=== PATIENT | male | born 1945 | race Caucasian/White ===

== ENCOUNTER → 2016-06-05 | Outpatient (CLI) | payer MEDICARE ==
[2016-06-05 17:32] LABS: Blood Urea Nitrogen 10 mg/dL (9-20); Non-African American GFR(MDRD) >60 (>60 ml/min/1.73 sqM)
--- NOTE | 2016-06-05 18:57 | CT ---
EXAMINATION TYPE: CT ChestAbdPelvis w con DATE OF EXAM: 06/05/2016 6:37 PM COMPARISON: NONE HISTORY: Diarrhea x 6 weeks with [address] DLP: 722.60 mGycm. Automated Exposure Control for Dose Reduction was Utilized. CONTRAST: CT scan of the thorax, abdomen and pelvis is performed with IV Contrast, patient injected with 100 mL of Omnipaque 300. FINDINGS: LUNGS: The lungs are grossly clear, there is no concerning parenchymal mass is identified. A 3 mm pul monary nodule is seen of the right upper lobe medially and marked on the study. Right lower lobe 5 mm pulmonary nodule at the right lung base may relate to atelectasis. Minimal bibasilar subsegmental atelectasis is noted. There is no pleural effusion or pneumothorax seen. The tracheobronchial tree i s patent. MEDIASTINUM: There are no greater than 1 cm hilar or mediastinal lymph nodes. No pericardial effusi on is seen. Three-vessel coronary artery disease is seen. Heart is not enlarged. No pericardial effu milton. OTHER: No additional significant abnormality is seen. LIVER/GB: Hepatic parenchyma is grossly unremarkable with no evidence of intrahepatic biliary ductal dilatation. Gallbladder is elongated measuring up to 9.4 cm. No evidence of common bile ductal dilata tion.. PANCREAS: Pancreas is mildly atrophic but otherwise unremarkable. No pancreatic ductal dilatation.. SPLEEN: Spleen is absent and small residual calcified structure seen within the splenic bed.. ADRENALS: No significant abnormality is seen. KIDNEYS: No significant abnormality is seen. BOWEL: There is marked gastrectasis and dilation of the entirety of the proximal small bowel up to 4. 0 cm. A focal nondistended segment of small bowel seen within the low mid abdomen, however bowel seen distal to this is again dilated residing within the low pelvis. Small bowel appear lowers otherwise dilated up to the terminal ileum. Ascending colon is stool and air filled as is the transverse colon with decompression of the distal colon and sigmoid colon. There is no engorgement of the vasa recta o r free fluid appreciated. GENITAL ORGANS: No gross abnormality seen. LYMPH NODES: No greater than 1cm abdominal or pelvic lymph nodes are appreciated. OSSEOUS STRUCTURES: T12 degenerate change of superior endplate. OTHER: Atheromatous changes are appreciated of the abdominal aorta and its branches. Abdominal aorta and its branches are of normal course and caliber. Mild anasarca is seen of the soft tissues. IMPRESSION: 1. Gastrectasis and diffuse dilation of the small bowel without a focal transition point to suggest c omplete obstruction. Additionally fluid is seen within the bowel extending to the terminal ileum. Inc omplete or early small bowel obstruction is suspected due to the diffuse dilation of the small bowel and proximal stomach. Clinical correlation as well as short-term follow-up abdominal radiographs are recommended to evaluate for transit of oral contrast through the entirety of the small bowel into the colon. 2. Elongated gallbladder without right upper quadrant fat stranding changes or common bile duct dilat ion. 3. Right middle lobe pulmonary nodule and right lower lobe pulmonary nodule. Follow-up chest CT is re commended in 6-12 months.
== END | disposition home or self-care (01) ==
LOC: RADCTMAIN 16:50
PROVIDERS: ATTEND Physician Assistant
DX: K31.0 Acute dilatation of stomach (principal); K82.8 Other specified diseases of gallbladder; K63.89 Other specified diseases of intestine; R91.8 Other nonspecific abnormal finding of lung field
CPT/HCPCS: 82565; 84520; 71260; 74177; 36415; Q9967

== ENCOUNTER 2016-06-08 11:37 | Inpatient (IN) | payer MEDICARE ==
--- NOTE | 2016-06-08 12:45 | ED ---
Nausea/Vomiting/Diarrhea HPI - General Chief complaint: Nausea/Vomiting/Diarrhea Stated complaint: Bowel Obs. sent by PCP Time Seen by Provider: 06/08/16 12:15 Source: patient, RN notes reviewed, old records reviewed Mode of arrival: ambulatory Limitations: no limitations - History of Present Illness Initial comments: This is a 71-year-old male who states he was sent over from the clinic for evaluation for a possible bowel obstruction. He states he's had 6 weeks of diarrhea 30 pound weight loss slight nausea and 2 episodes of vomiting at night he's had decreased oral intake. He has no prior history of any pulmonary or GI problems no prior surgeries. He feels weak he does feel lightheaded when he gets up from a sitting or lying position too fast he denies any fevers chills or sweats no overt pain any body parts. No trouble with urination. He states he does not smoke and does not drink alcohol. He also knows of no exposure to anyone with any gastrointestinal symptoms he is not been out of the country recently and has not been on any antibiotics recently. MD complaint: nausea, vomiting, diarrhea, other - Related Data Home Medications Medication Instructions Recorded Confirmed Calcium Carbonate [Calcium] 600 mg PO BID 06/08/16 06/08/16 Cholecalciferol [Vitamin D3] 5,000 unit PO DAILY 06/08/16 06/08/16 Magnesium Gluconate [Magonate] 500 mg PO DAILY 06/08/16 06/08/16 Multivit-Min/FA/Lycopene/Lut 1 tab PO DAILY 06/08/16 06/08/16 [Centrum Silver Tablet] Allergies Allergy/AdvReac Type Severity Reaction Status Date / Time No Known Allergies Allergy Verified 06/08/16 11:56 Review of Systems ROS Statement: Those systems with pertinent positive or pertinent negative responses have been documented in the HPI. ROS Other: All systems not noted in ROS Statement are negative. Gastrointestinal: Reports: as per HPI Past Medical History Past Medical History: No Reported History History of Any Multi-Drug Resistant Organisms: None Reported Past Surgical History: No Surgical Hx Reported Past Psychological History: No Psychological Hx Reported Smoking Status: Former smoker Past Alcohol Use History: None Reported Past Drug Use History: None Reported General Exam - General Exam Comments Initial Comments: This is a well-developed well-nourished awake alert oriented 3 male Limitations: no limitations General appearance: alert, in no apparent distress Head exam: Present: atraumatic, normocephalic, normal inspection Eye exam: Present: normal appearance, PERRL, EOMI. Absent: scleral icterus, conjunctival injection, periorbital swelling ENT exam: Present: mucous membranes dry Neck exam: Present: normal inspection. Absent: tenderness, meningismus, lymphadenopathy Respiratory exam: Present: normal lung sounds bilaterally. Absent: respiratory distress, wheezes, rales, rhonchi, stridor Cardiovascular Exam: Present: normal rhythm, tachycardia GI/Abdominal exam: Present: soft, normal bowel sounds. Absent: distended, tenderness, guarding, rebound, rigid Extremities exam: Present: normal inspection, full ROM, normal capillary refill. Absent: tenderness, pedal edema, joint swelling, calf tenderness Back exam: Present: normal inspection Neurological exam: Present: alert, oriented X3, CN II-XII intact Psychiatric exam: Present: normal affect, normal mood Skin exam: Present: warm, dry, intact, normal color. Absent: rash Course Vital Signs 06/08/16 06/08/16 11:51 14:14 Temperature 98.1 F Pulse Rate 114 H 97 Respiratory 18 17 Rate Blood Pressure 108/75 116/74 O2 Sat by Pulse 98 99 Oximetry - Reevaluation(s) Reevaluation #1: 06/08/16 12:44 Patient did have a CAT scan the abdomen done on the third of this month which did show evidence of gastrectomy EMS with diffuse dilatation of the small bowel without focal transition point suggest of the leg earlier incomplete small bowel obstruction. Also elongated gallbladder without right upper quadrant fat stranding changes or, bile duct dilatation additionally was a right middle lobe pulmonary nodule noted Medical Decision Making - Medical Decision Making I did discuss findings with the patient patient does demonstrate hypomagnesemia hypocalcemia I did discuss the case with Dr. Briggs the patient will be admitted to her service with medicine and consultation. He d-dimer was 3.4 did do a CAT scan of the chest no evidence of any pulmonary embolism. - Lab Data Result diagrams: 06/08/16 12:20 06/08/16 12:20 Lab Results 06/08/16 06/08/16 06/08/16 Range/Units 12:20 12:20 12:20 WBC 10.7 H (3.8-10.6) k/uL RBC 5.07 (4.30-5.90) m/uL Hgb 17.0 (13.0-17.5) gm/dL Hct 48.7 (39.0-53.0) % MCV 96.1 (80.0-100.0) fL MCH 33.6 (25.0-35.0) pg MCHC 35.0 (31.0-37.0) g/dL RDW 13.9 (11.5-15.5) % Plt Count 339 (150-450) k/uL Neutrophils % 80 % Lymphocytes % 12 % Monocytes % 6 % Eosinophils % 1 % Basophils % 1 % Neutrophils # 8.5 H (1.3-7.7) k/uL Lymphocytes # 1.3 (1.0-4.8) k/uL Monocytes # 0.7 (0-1.0) k/uL Eosinophils # 0.1 (0-0.7) k/uL Basophils # 0.1 (0-0.2) k/uL D-Dimer (<0.60) mg/L FEU Sodium 136 L (137-145) mmol/L Potassium 4.5 (3.5-5.1) mmol/L Chloride 101 (98-107) mmol/L Carbon Dioxide 23 (22-30) mmol/L Anion Gap 12 mmol/L BUN 16 (9-20) mg/dL Creatinine 1.03 (0.66-1.25) mg/dL Est GFR (MDRD) Af Amer >60 (>60 ml/min/1.73 sqM) Est GFR (MDRD) Non-Af >60 (>60 ml/min/1.73 sqM) Glucose 92 (74-99) mg/dL Calcium 5.1 L* (8.4-10.2) mg/dL Magnesium 0.6 L* (1.6-2.3) mg/dL Total Bilirubin 1.0 (0.2-1.3) mg/dL AST 121 H (17-59) U/L ALT 53 (21-72) U/L Alkaline Phosphatase 73 (38-126) U/L Total Creatine Kinase 1139 H (55-170) U/L CK-MB (CK-2) 5.2 H* (0.0-2.4) ng/mL CK-MB (CK-2) Rel Index 0.5 Total Protein 5.9 L (6.3-8.2) g/dL Albumin 2.5 L (3.5-5.0) g/dL Amylase 58 (30-110) U/L Lipase 38 (23-300) U/L TSH 6.200 H (0.465-4.680) mIU/L Free T4 1.89 (0.78-2.19) ng/dL Urine Color Urine Appearance (Clear) Urine pH (5.0-8.0) Ur Specific [place] (1.001-1.035) Urine Protein (Negative) Urine Glucose (UA) (Negative) Urine Ketones (Negative) Urine Blood (Negative) Urine Nitrate (Negative) Urine Bilirubin (Negative) Urine Urobilinogen (<2.0) mg/dL Ur Leukocyte Esterase (Negative) Urine RBC (0-5) /hpf Urine WBC (0-5) /hpf Ur Squamous Epith Cells (0-4) /hpf Hyaline Casts (0-2) /lpf Urine Mucus (None) /hpf Stool Occult Blood (Negative) Urine Opiates Screen (NotDetected) Ur Oxycodone Screen (NotDetected) Urine Methadone Screen (NotDetected) Ur Propoxyphene Screen (NotDetected) Ur Barbiturates Screen (NotDetected) U Tricyclic Antidepress (NotDetected) Ur Phencyclidine Scrn (NotDetected) Ur Amphetamines Screen (NotDetected) U Methamphetamines Scrn (NotDetected) U Benzodiazepines Scrn (NotDetected) Urine Cocaine Screen (NotDetected) U Marijuana (THC) Screen (NotDetected) Serum Alcohol <10 mg/dL 06/08/16 06/08/16 06/08/16 Range/Units 12:20 12:45 13:00 WBC (3.8-10.6) k/uL RBC (4.30-5.90) m/uL Hgb (13.0-17.5) gm/dL Hct (39.0-53.0) % MCV (80.0-100.0) fL MCH (25.0-35.0) pg MCHC (31.0-37.0) g/dL RDW (11.5-15.5) % Plt Count (150-450) k/uL Neutrophils % % Lymphocytes % % Monocytes % % Eosinophils % % Basophils % % Neutrophils # (1.3-7.7) k/uL Lymphocytes # (1.0-4.8) k/uL Monocytes # (0-1.0) k/uL Eosinophils # (0-0.7) k/uL Basophils # (0-0.2) k/uL D-Dimer 3.40 H (<0.60) mg/L FEU Sodium (137-145) mmol/L Potassium (3.5-5.1) mmol/L Chloride (98-107) mmol/L Carbon Dioxide (22-30) mmol/L Anion Gap mmol/L BUN (9-20) mg/dL Creatinine (0.66-1.25) mg/dL Est GFR (MDRD) Af Amer (>60 ml/min/1.73 sqM) Est GFR (MDRD) Non-Af (>60 ml/min/1.73 sqM) Glucose (74-99) mg/dL Calcium (8.4-10.2) mg/dL Magnesium (1.6-2.3) mg/dL Total Bilirubin (0.2-1.3) mg/dL AST (17-59) U/L ALT (21-72) U/L Alkaline Phosphatase (38-126) U/L Total Creatine Kinase (55-170) U/L CK-MB (CK-2) (0.0-2.4) ng/mL CK-MB (CK-2) Rel Index Total Protein (6.3-8.2) g/dL Albumin (3.5-5.0) g/dL Amylase (30-110) U/L Lipase (23-300) U/L TSH (0.465-4.680) mIU/L Free T4 (0.78-2.19) ng/dL Urine Color Dark Yellow Urine Appearance Clear (Clear) Urine pH 6.0 (5.0-8.0) Ur Specific [place] 1.026 (1.001-1.035) Urine Protein 1+ H (Negative) Urine Glucose (UA) Negative (Negative) Urine Ketones 2+ H (Negative) Urine Blood Negative (Negative) Urine Nitrate Negative (Negative) Urine Bilirubin Negative (Negative) Urine Urobilinogen <2.0 (<2.0) mg/dL Ur Leukocyte Esterase Negative (Negative) Urine RBC 1 (0-5) /hpf Urine WBC 6 H (0-5) /hpf Ur Squamous Epith Cells 1 (0-4) /hpf Hyaline Casts 5 H (0-2) /lpf Urine Mucus Occasional H (None) /hpf Stool Occult Blood Positive (Negative) Urine Opiates Screen Not Detected (NotDetected) Ur Oxycodone Screen Not Detected (NotDetected) Urine Methadone Screen Not Detected (NotDetected) Ur Propoxyphene Screen Not Detected (NotDetected) Ur Barbiturates Screen Not Detected (NotDetected) U Tricyclic Antidepress Not Detected (NotDetected) Ur Phencyclidine Scrn Not Detected (NotDetected) Ur Amphetamines Screen Not Detected (NotDetected) U Methamphetamines Scrn Not Detected (NotDetected) U Benzodiazepines Scrn Not Detected (NotDetected) Urine Cocaine Screen Not Detected (NotDetected) U Marijuana (THC) Screen Not Detected (NotDetected) Serum Alcohol mg/dL - EKG Data -: EKG Interpreted by Ne EKG shows normal: sinus rhythm (EKG shows sinus rhythm of 90 [place] interval 146 QRS duration 60 QT/QTC 390/477 low-voltage QRSs seen nonspecific inferior changes.) - Radiology Data Radiology results: report reviewed (I did review the imaging and the CAT scan reports also. Partial small bowel obstruction is indicated.), image reviewed ( CAT scan did show some evidence of an inflammatory reaction the right base) Disposition Clinical Impression: Partial small bowel obstruction, Hypomagnesemia, Hypocalcemia, Dehydration Disposition: ADMITTED IP TO THIS [facility] Condition: Stable
[2016-06-08 13:04] LABS: ALT 53 U/L (21-72); AST 121 U/L (17-59); Alcohol <10 mg/dL; Alkaline Phosphatase 73 U/L (38-126); Amylase 58 U/L (30-110); Anion Gap 12 mmol/L; Blood Urea Nitrogen 16 mg/dL (9-20); Carbon Dioxide 23 mmol/L (22-30); Chloride 101 mmol/L (98-107); Glucose 92 mg/dL (74-99); Non-African American GFR(MDRD) >60 (>60 ml/min/1.73 sqM); Potassium 4.5 mmol/L (3.5-5.1); Sodium 136 mmol/L (137-145); Total Protein 5.9 g/dL (6.3-8.2)
[2016-06-08 13:06] LABS: Basophils # (A) 0.1 k/uL (0-0.2); Basophils % (A) 1 %; CH 33.9; CHCM 35.5; Eosinophils # (A) 0.1 k/uL (0-0.7); Eosinophils % (A) 1 %; HCT 48.7 % (39.0-53.0); HDW 3.17; Luc % (Auto) 1; Lymphocytes # (A) 1.3 k/uL (1.0-4.8); Lymphocytes % (A) 12 %; MCH 33.6 pg (25.0-35.0); MCV 96.1 fL (80.0-100.0); Mean Platelet Volume 11.7; Monocytes # (A) 0.7 k/uL (0-1.0); Monocytes % (A) 6 %; Neutrophils # (A) 8.5 k/uL (1.3-7.7); Neutrophils % (A) 80 %; RBC 5.07 m/uL (4.30-5.90); RDW 13.9 % (11.5-15.5); WBC 10.7 k/uL (3.8-10.6); WBC (Perox) 10.24
--- NOTE | 2016-06-08 13:11 | XR ---
EXAMINATION TYPE: XR chest 2V DATE OF EXAM: 06/08/2016 12:58 PM COMPARISON: CT CAP 3 days ago. HISTORY: Cough TECHNIQUE: Frontal and lateral views of the chest are obtained. FINDINGS: There is no focal air space opacity, pleural effusion, or pneumothorax seen. The cardiac silhouette size is within normal limits. The osseous structures are intact. IMPRESSION: No suspicious acute infiltrate is present.
--- NOTE | 2016-06-08 13:13 | XR ---
EXAMINATION TYPE: XR abdomen 2V DATE OF EXAM: 06/08/2016 12:58 PM CLINICAL HISTORY: Abdominal pain and discomfort TECHNIQUE: Supine and upright views of the abdomen are obtained. COMPARISON: CT CAP 3 days ago. FINDINGS: Scattered gas is seen in non-distended small bowel loops. Gas and fecal material is seen in non-distended colon. There is no visceromegaly, pneumoperitoneum, or abnormal calcification appr eciated. The lung bases are clear and the osseous structures are intact. IMPRESSION: Overall nonspecific favor nonobstructive bowel gas pattern.
[2016-06-08 13:19] LABS: Calcium 5.1 mg/dL (8.4-10.2)
[2016-06-08 13:20] LABS: Magnesium 0.6 mg/dL (1.6-2.3)
[2016-06-08 13:40] LABS: Creatine Kinase MB 5.2 ng/mL (0.0-2.4)
[2016-06-08 14:07] LABS: Appearance,Urine Clear (Clear); Bilirubin,Urine Negative (Negative); Glucose,Urine (UA) Negative (Negative); Ketones,Urine 2+ (Negative); Leukocyte Esterase,Urine Negative (Negative); Mucus,Urine Occasional /hpf; Nitrite,Urine Negative (Negative); Particle Count 9294; Protein,Urine 1+ (Negative); RBC,Urine 1 /hpf (0-5); Specific Gravity,Urine 1.026 (1.001-1.035); Squamous Epithelial Cell,Urine 1 /hpf (0-4); UA Billing (MACRO vs. MICRO) MICRO; Urobilinogen,Urine <2.0 mg/dL (<2.0); WBC,Urine 6 /hpf (0-5)
[2016-06-08] MEDS: MAGNESIUM SULFATE-D5W PMX 1 GM in DEXTROSE/WATER 1 100ML.BAG IVPB SCH ×5 (14:08→23:39)
[2016-06-08] MEDS ORDERED: RX INFO: IV CONTRAST WAS GIVEN 1 EACH MISC MISCELLANE PRN (14:16)
--- NOTE | 2016-06-08 14:51 | CT ---
EXAMINATION TYPE: CT angio chest DATE OF EXAM: 06/08/2016 2:43 PM COMPARISON: CT cap June 05, 2016. HISTORY: Patient denies chest complaints. Chest pain per order not further specified CT DLP: 346 mGycm. Automated Exposure Control for Dose Reduction was Utilized. CONTRAST: CTA scan of the thorax is performed with IV Contrast, patient injected with 100 mL of Omnipaque 350, pulmonary embolism protocol. MIP Images are created on CT scanner and reviewed. FINDINGS: LUNGS: There is 12 x 8 mm nodular consolidation right middle lobe just above diaphragm on axial image 109 slightly more prominent than prior study, considering infectious process. Follow-up to resolutio n is advised to rule out underlying nodule. Focal linear atelectasis or scarring centrally in the lef t lower lobe is redemonstrated. Mild biapical linear scarring bilaterally is again seen. No new pare nchymal nodule or mass is present. Mild underlying emphysematous change is noted. There is no pleural effusion or pneumothorax seen. The tracheobronchial tree is patent. MEDIASTINUM: There is satisfactory enhancement of the pulmonary artery and its branches, there is no CT evidence for pulmonary embolism. There are no greater than 1 cm hilar or mediastinal lymph nodes. No cardiomegaly or pericardial effusion is seen. Ectatic thoracic aorta is redemonstrated. OTHER: No additional significant abnormality is seen. IMPRESSION: No CT evidence for pulmonary embolism. Increasing nodular consolidation right lung base c ould reflect focal infectious process or pneumonia, clinical correlation advised. Follow-up CT in 6 m onths time is recommended to further assess.
[2016-06-08] MEDS ORDERED: NALOXONE 0.4 MG/ML 1 ML VIAL IV PRN (15:41)
[2016-06-08] MEDS: SODIUM CHLORIDE 0.9% 1,000 ML IV SCH ×2 (16:50→23:43)
[2016-06-08] MEDS ORDERED: SODIUM CHLORIDE 0.9% 1,000 ML IV ONE (18:04)
[2016-06-08] MEDS ORDERED: Magnesium Replacement Protocol 1 EACH MISC MISCELLANE PRN (18:05)
[2016-06-08] MEDS ORDERED: ONDANSETRON 4 MG/2 ML VIAL IVP PRN (18:26)
--- NOTE | 2016-06-08 18:43 | P.GSHP ---
History of Present Illness H&P Date: 06/08/16 Chief Complaint: Diarrhea The patient is a 71-year-old gentleman who denies any previous abdominal surgeries. He reports 6 weeks ago eating spoiled yee and developed acute nausea and vomiting including diarrhea. He had at that time epigastric abdominal pain. Previously, he denies any fatty food intolerance. Over the last 6 weeks, he's lost over 30 pounds unintentional. Separately he had a CT of the abdomen and pelvis with his primary care provider that demonstrated a dilated gallbladder including questionable small bowel obstruction. He has been able to pass flatus with his bowel movements. His bowel movements have been liquid to clear at least 5 times daily. He has been taking Kaopectate including Imodium every day. He has self discontinued his Prilosec for gastroesophageal reflux disease. He denies any abdominal pain at the time of presentation to emergency room including admission. He denies any vomiting prior to admission. He had completed an abdominal x-ray that demonstrated no evidence of obstruction. Separately, he presents with severe electrolyte dyscrasias including low calcium and low magnesium. As a result, he has been admitted for unintentional weight loss, diarrhea, multiple electrolyte abnormalities. - Review of Systems Comment: CONSTITUTIONAL: Denies any fever or chills. Unintentional weight loss of 30 pounds in 6 weeks. HEENT: Denies any trouble with vision, hearing or nosebleeds. No difficulty swallowing. LYMPHATIC: The patient denies any lumps and bumps around the neck. ENDOCRINE: Denies any thyroid disorders. Denies any blood sugar glucose intolerance. RESPIRATORY: Denies pneumonia. Denies any troubles with breathing or dyspnea on exertion. CARDIOVASCULAR: Denies any chest pain, palpitations, or recent heart attacks. GASTROINTESTINAL: Previous heart burn. No constipation or bright red blood per rectum. Hemoccult positive in ER. Diarrhea for 6 weeks. GENITOURINARY: Denies any blood in urine or increased urinary frequency. MUSCULOSKELETAL: Occasional back pain, stiffness or joint arthritis. NEUROLOGIC: Denies any numbness or tingling along the distal extremities. No seizure disorders or headaches. PSYCHIATRIC: Denies depression or suidical ideation. HEMATOLOGIC: Denies any abnormal bleeding or bruising. Past Medical History Past Medical History: GERD/Reflux History of Any Multi-Drug Resistant Organisms: None Reported Past Surgical History: No Surgical Hx Reported Additional Past Surgical History / Comment(s): rupert cataracts Past Anesthesia/Blood Transfusion Reactions: No Reported Reaction Additional Past Anesthesia/Blood Transfusion Reaction / Comment(s): never recieved any blood. Past Psychological History: No Psychological Hx Reported Additional Psychological History / Comment(s): pt is independant, lives with step son and lucita in law. has 4 steps up into house- home is one level. no outside services. no hospital eqipment. 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 Smoking Status: Former smoker Past Alcohol Use History: None Reported Additional Past Alcohol Use History / Comment(s): started smoking at age 14, quit at age 30 was smoking 2 ppd. used to be heavy drinker when younger ,quit age 30. Past Drug Use History: None Reported - Past Family History Father Family Medical History: CVA/TIA Mother Additional Family Medical History / Comment(s): in a mva Medications and Allergies Home Medications Medication Instructions Recorded Confirmed Type Calcium Carbonate [Calcium] 600 mg PO BID 06/08/16 06/08/16 History Cholecalciferol [Vitamin D3] 5,000 unit PO DAILY 06/08/16 06/08/16 History Magnesium Gluconate [Magonate] 500 mg PO DAILY 06/08/16 06/08/16 History Multivit-Min/FA/Lycopene/Lut 1 tab PO DAILY 06/08/16 06/08/16 History [Centrum Silver Tablet] Allergies Allergy/AdvReac Type Severity Reaction Status Date / Time No Known Allergies Allergy Verified 06/08/16 16:28 Surgical - Exam Vital Signs Temp Pulse Resp BP Pulse Ox 98.1 F 114 H 18 108/75 98 06/08/16 11:51 06/08/16 11:51 06/08/16 11:51 06/08/16 11:51 06/08/16 11:51 GENERAL: Well developed and in no acute distress. Pleasant. HEENT: No sclera icterus. Extraocular movements grossly intact. Moist buccal mucosa. Head is atraumatic, normocephalic. Hears conversational speech. No nasal drainage. NECK: Supple without lymphadenopathy. No JV distention. CHEST: Non-labored respirations and equal bilateral excursions. CARDIOVASCULAR: Regular rate and rhythm. Palpable 2+ radial pulses. ABDOMEN: Soft, nontender. Nondistended. MUSCULOSKELETAL: No clubbing, cyanosis or edema. NEUROLOGIC: No focal or lateralizing signs. PSYCH: Appropriate affect. Alert and oriented to person, place and time. Results - Labs 06/08/16 12:20 06/08/16 12:20 Laboratory Results - last 24 hr 06/08/16 06/08/16 06/08/16 12:20 12:20 12:20 WBC 10.7 H RBC 5.07 Hgb 17.0 Hct 48.7 MCV 96.1 MCH 33.6 MCHC 35.0 RDW 13.9 Plt Count 339 Neutrophils % 80 Lymphocytes % 12 Monocytes % 6 Eosinophils % 1 Basophils % 1 Neutrophils # 8.5 H Lymphocytes # 1.3 Monocytes # 0.7 Eosinophils # 0.1 Basophils # 0.1 D-Dimer Sodium 136 L Potassium 4.5 Chloride 101 Carbon Dioxide 23 Anion Gap 12 BUN 16 Creatinine 1.03 Est GFR (MDRD) Af Amer >60 Est GFR (MDRD) Non-Af >60 Glucose 92 Calcium 5.1 L* Phosphorus Magnesium 0.6 L* Total Bilirubin 1.0 AST 121 H ALT 53 Alkaline Phosphatase 73 Total Creatine Kinase 1139 H CK-MB (CK-2) 5.2 H* CK-MB (CK-2) Rel Index 0.5 Total Protein 5.9 L Albumin 2.5 L Amylase 58 Lipase 38 TSH 6.200 H Free T4 1.89 Urine Color Urine Appearance Urine pH Ur Specific [place] Urine Protein Urine Glucose (UA) Urine Ketones Urine Blood Urine Nitrate Urine Bilirubin Urine Urobilinogen Ur Leukocyte Esterase Urine RBC Urine WBC Ur Squamous Epith Cells Hyaline Casts Urine Mucus Stool Occult Blood Urine Opiates Screen Ur Oxycodone Screen Urine Methadone Screen Ur Propoxyphene Screen Ur Barbiturates Screen U Tricyclic Antidepress Ur Phencyclidine Scrn Ur Amphetamines Screen U Methamphetamines Scrn U Benzodiazepines Scrn Urine Cocaine Screen U Marijuana (THC) Screen Serum Alcohol <10 06/08/16 06/08/16 06/08/16 12:20 12:20 12:45 WBC RBC Hgb Hct MCV MCH MCHC RDW Plt Count Neutrophils % Lymphocytes % Monocytes % Eosinophils % Basophils % Neutrophils # Lymphocytes # Monocytes # Eosinophils # Basophils # D-Dimer 3.40 H Sodium Potassium Chloride Carbon Dioxide Anion Gap BUN Creatinine Est GFR (MDRD) Af Amer Est GFR (MDRD) Non-Af Glucose Calcium Phosphorus 5.5 H Magnesium Total Bilirubin AST ALT Alkaline Phosphatase Total Creatine Kinase CK-MB (CK-2) CK-MB (CK-2) Rel Index Total Protein Albumin Amylase Lipase TSH Free T4 Urine Color Dark Yellow Urine Appearance Clear Urine pH 6.0 Ur Specific [place] 1.026 Urine Protein 1+ H Urine Glucose (UA) Negative Urine Ketones 2+ H Urine Blood Negative Urine Nitrate Negative Urine Bilirubin Negative Urine Urobilinogen <2.0 Ur Leukocyte Esterase Negative Urine RBC 1 Urine WBC 6 H Ur Squamous Epith Cells 1 Hyaline Casts 5 H Urine Mucus Occasional H Stool Occult Blood Urine Opiates Screen Not Detected Ur Oxycodone Screen Not Detected Urine Methadone Screen Not Detected Ur Propoxyphene Screen Not Detected Ur Barbiturates Screen Not Detected U Tricyclic Antidepress Not Detected Ur Phencyclidine Scrn Not Detected Ur Amphetamines Screen Not Detected U Methamphetamines Scrn Not Detected U Benzodiazepines Scrn Not Detected Urine Cocaine Screen Not Detected U Marijuana (THC) Screen Not Detected Serum Alcohol 06/08/16 13:00 WBC RBC Hgb Hct MCV MCH MCHC RDW Plt Count Neutrophils % Lymphocytes % Monocytes % Eosinophils % Basophils % Neutrophils # Lymphocytes # Monocytes # Eosinophils # Basophils # D-Dimer Sodium Potassium Chloride Carbon Dioxide Anion Gap BUN Creatinine Est GFR (MDRD) Af Amer Est GFR (MDRD) Non-Af Glucose Calcium Phosphorus Magnesium Total Bilirubin AST ALT Alkaline Phosphatase Total Creatine Kinase CK-MB (CK-2) CK-MB (CK-2) Rel Index Total Protein Albumin Amylase Lipase TSH Free T4 Urine Color Urine Appearance Urine pH Ur Specific [place] Urine Protein Urine Glucose (UA) Urine Ketones Urine Blood Urine Nitrate Urine Bilirubin Urine Urobilinogen Ur Leukocyte Esterase Urine RBC Urine WBC Ur Squamous Epith Cells Hyaline Casts Urine Mucus Stool Occult Blood Positive Urine Opiates Screen Ur Oxycodone Screen Urine Methadone Screen Ur Propoxyphene Screen Ur Barbiturates Screen U Tricyclic Antidepress Ur Phencyclidine Scrn Ur Amphetamines Screen U Methamphetamines Scrn U Benzodiazepines Scrn Urine Cocaine Screen U Marijuana (THC) Screen Serum Alcohol - Imaging Abdominal x-ray: report reviewed, image reviewed CT scan - abdomen: report reviewed, image reviewed CT scan - pelvis: report reviewed, image reviewed Additional studies: CT angiogram reviewed negative for pulmonary embolism Assessment and Plan (1) Diarrhea Status: Chronic (2) Hypocalcemia Status: Acute (3) Hypomagnesemia Status: Acute (4) Gallbladder disorder Status: Acute (5) Dilated gallbladder Status: Acute (6) Gastroesophageal reflux disease Status: Chronic (7) Adverse effects of medication Status: Acute (8) Dehydration Status: Acute (9) Encounter for Hemoccult screening Status: Acute Plan: 1. The patient's CT of the abdomen and pelvis from 3 days ago was reviewed in detail. His current abdominal x-ray demonstrates no evidence of bowel obstruction. He denies any symptoms consistent with small bowel obstruction at this time. He is able to pass flatus and denies any abdominal pain. 2. He reports self directed use of Kaopectate and Imodium which can cause adverse reaction. His low calcium and hypo-magnesia are highly suspicious of abuse of his antidiarrheals. 3. Aggressive correction of hypocalcemia and hypo-magnesia. 4. He had acute onset abdominal pain including intractable diarrhea following exposure to spoiled yee. Recommend a HIDA scan to evaluate gallbladder dysfunction which can also cause chronic diarrhea. 5. Stool culture and analysis to be sent as well as C. diff assay. 6. May start low residue diet in the interim upon completion of HIDA study. 7. He denies any personal history of colonoscopy and in fact is adamant against a colonoscopy despite a positive Hemoccult study from the ER. May defer endoscopy as an outpatient in the interim. 8. Care plan discussed with patient which includes correction of electrolyte abnormalities as well as stool assays. 9. Possible disposition home within 24-48 hours with outpatient follow-up.
[2016-06-08] MEDS ORDERED: CALCIUM GLUCONATE 1,000 MG in SODIUM CHLORIDE 0.9% 100 ML IVPB ONE (19:00)
[2016-06-09] MEDS: MAGNESIUM SULFATE-D5W PMX 1 GM in DEXTROSE/WATER 1 100ML.BAG IVPB SCH (00:49)
[2016-06-09 06:50] LABS: Basophils # (A) 0.1 k/uL (0-0.2); Basophils % (A) 0 %; CH 33.6; CHCM 34.6; Eosinophils # (A) 0.1 k/uL (0-0.7); Eosinophils % (A) 1 %; HCT 43.5 % (39.0-53.0); HDW 3.17; HGB 14.3 gm/dL (13.0-17.5); Luc % (Auto) 2; Lymphocytes # (A) 1.4 k/uL (1.0-4.8); Lymphocytes % (A) 13 %; MCH 32.1 pg (25.0-35.0); MCHC 32.8 g/dL (31.0-37.0); MCV 97.8 fL (80.0-100.0); Mean Platelet Volume 9.3; Monocytes # (A) 0.8 k/uL (0-1.0); Monocytes % (A) 8 %; Neutrophils # (A) 7.8 k/uL (1.3-7.7); Neutrophils % (A) 75 %; RBC 4.45 m/uL (4.30-5.90); RDW 13.8 % (11.5-15.5); WBC 10.3 k/uL (3.8-10.6); WBC (Perox) 10.82
[2016-06-09] MEDS: SODIUM CHLORIDE 0.9% 1,000 ML IV SCH ×3 (07:25→20:42)
--- NOTE | 2016-06-09 10:36 | NM ---
EXAMINATION TYPE: NM hepatobiliary w EF DATE OF EXAM: 06/09/2016 10:26 AM COMPARISON: NONE INDICATION: Biliary dyskinesia TECHNIQUE: After the intravenous administration of 5 mCi Tc 99m Mebrofenin hepatobiliary scintigraphy is performed. Images were obtained immediately post injection. FINDINGS: There is prompt uptake and excretion of radiotracer by the liver. Extrahepatic ducts are identified at 21 minutes. The gallbladder is visualized within 90 minutes. Small bowel activity is noted within 30 minutes. At one hour 8 ounces of oral ensure plus is given to mimic CCK and gallbladder ejection fraction is c alculated at 0 %, which is abnormal. (Normal >35% and <80%.). IMPRESSION: 1. No measurable ejection fraction. 2. No obstruction identified. There is delayed filling of the gallbladder.
[2016-06-09] MEDS ORDERED: CALCIUM GLUCONATE 1,000 MG in SODIUM CHLORIDE 0.9% 100 ML IVPB STA ×2 (11:25→14:38)
[2016-06-09 12:06] VITALS: BMI 23.6
--- NOTE | 2016-06-09 12:59 | P.PN ---
Subjective To 71-year-old being seen on rounds this morning sitting up taking a clear liquid diet. States the abdominal discomfort has subsided. No further episodes of nausea no vomiting. No further episodes of frequent stooling the calcium was 5.7 in which replacement is being given the magnesium 2.2 this morning This is a follow-up visit on gentleman who stated that 6 weeks ago "after eating some spoiled yee developed dry heaves nausea couldn't keep anything down and frequent loose stooling. Used some [id number] products Kaopectate including Imodium and developed epigastric abdominal pain. Subsequent the patient presented to the emergency room with the above-mentioned symptoms. Patient had a CAT scan of the abdomen pelvis that was ordered by his primary care provider did show dilated gallbladder with questionable small bowel obstruction. Patient stated he was able to pass gas with his bowel movements. States he would have liquid to clear stools at least 5 times a day. He also had complete abdominal x-rays that showed no evidence of an obstruction. Did note that the calcium and the magnesium were low in which replacement is being given additionally patient reportedly has been experiencing unintentional weight loss Objective - Vital Signs Vital signs: Vital Signs Temp 97.7 F 06/09/16 07:00 Pulse 97 06/09/16 07:00 Resp 16 06/09/16 07:00 BP 129/70 06/09/16 07:00 Pulse Ox 95 06/09/16 07:00 Intake & Output 06/08/16 06/09/16 06/09/16 18:59 06:59 18:59 Intake Total 2375 Balance 2375 Weight 72.575 kg Intake: IV 2375 Sodium Chloride 0.9% 1, 1375 000 ml @ 125 mls/hr IV . [facility]H [facility] Rx#:[id number] Sodium Chloride 0.9% 1, 1000 000 ml @ 999 mls/hr IV . Q1H1M [facility] Rx#:[id number] Other: Voiding Method Toilet Toilet # Voids 2 1 - Exam Physical exam 71-year-old male sitting up in bed taking a diet appearing in no acute distress Lungs essentially clear with adequate air movement Heart S1-S2 audible regular Abdomen flat nontender not distended active bowel tones no difficulty in urinating Extremities no edema noted - Labs CBC & Chem 7: 06/09/16 06:30 06/08/16 12:20 Labs: Abnormal Lab Results - Last 24 Hours (Table) 06/09/16 06/09/16 Range/Units 06:30 06:30 Neutrophils # 7.8 H (1.3-7.7) k/uL Calcium 5.7 L* (8.4-10.2) mg/dL Microbiology - Last 24 Hours (Table) 06/08/16 23:40 Stool Culture - Preliminary Stool Assessment and Plan Plan: Assessment and Plan (1) Diarrhea Status: Chronic (2) Hypocalcemia Status: Acute (3) Hypomagnesemia Status: Acute (4) Gallbladder disorder Status: Acute (5) Dilated gallbladder Status: Acute (6) Gastroesophageal reflux disease Status: Chronic (7) Adverse effects of medication Status: Acute (8) Dehydration Status: Acute (9) Encounter for Hemoccult screening Status: Acute Further recommendations pending repeat labs in the morning The above dictated assessment and findings were discussed with Dr. Jackie Valles and the plan of care have been dictated as directed. Adilene Swenson nurse practitioner acting as a scribe for Dr. Briggs
[2016-06-09] MEDS ORDERED: CALCIUM GLUCONATE 1,000 MG in SODIUM CHLORIDE 0.9% 100 ML IVPB ONE ×2 (18:55→19:00)
[2016-06-09] MEDS ORDERED: LEVOTHYROXINE 50 MCG TAB PO ONE (19:00)
--- NOTE | 2016-06-09 19:05 | P.PN ---
Progress Note - Text Patient seen and evaluated. Despite multiple calcium replacement, he still has persistent hypocalcemia. Laboratory results also demonstrates hypo-thyroidism. Thyroid supplement is pending. Additionally repeat magnesium and ionized calcium is pending. Recommend start of diet with repeat of creatinine kinase levels. Gallbladder studies were consistent with complete gallbladder dysfunction for which outpatient management was discussed. Discharge pending correction of electrolyte abnormalities including tolerating diet.
[2016-06-09] MEDS: CALCIUM CARBONATE 500 MG CHEWABLE PO SCH ×2 (20:41→22:40)
[2016-06-10] MEDS: SODIUM CHLORIDE 0.9% 1,000 ML IV SCH (01:31)
[2016-06-10] MEDS ORDERED: LEVOTHYROXINE 50 MCG TAB PO SCH (06:30)
[2016-06-10 07:25] LABS: Ionized Calcium 4.3 mg/dL (4.5-5.3)
[2016-06-10 07:37] LABS: Anion Gap 3 mmol/L; Blood Urea Nitrogen 9 mg/dL (9-20); Calcium 6.6 mg/dL (8.4-10.2); Carbon Dioxide 26 mmol/L (22-30); Chloride 104 mmol/L (98-107); Creatine Kinase 513 U/L (55-170); Glucose 86 mg/dL (74-99); Magnesium 1.8 mg/dL (1.6-2.3); Non-African American GFR(MDRD) >60 (>60 ml/min/1.73 sqM); Sodium 133 mmol/L (137-145)
[2016-06-10 07:59] VITALS: RESP 16
[2016-06-10] MEDS ORDERED: CALCIUM GLUCONATE 1,000 MG in SODIUM CHLORIDE 0.9% 100 ML IVPB ONE (08:01)
[2016-06-10] MEDS: POTASSIUM CHLORIDE ER 20 MEQ TAB.ER PO SCH ×2 (08:29→12:22)
[2016-06-10] MEDS: POTASSIUM CHLORIDE 10 MEQ, LIDOCAINE 2% INJ 10 MG in SODIUM CHLORIDE 0.9% 100 ML IVPB SCH ×4 (08:30→16:17)
[2016-06-10] MEDS: CALCIUM CARBONATE 500 MG CHEWABLE PO SCH ×2 (08:30→12:23)
[2016-06-10] MEDS ORDERED: CALCITRIOL 0.25 MCG CAP PO SCH (09:00)
--- NOTE | 2016-06-10 09:36 | P.PN ---
Subjective Principal diagnosis: Rhabdomyolysis Patient reports still having diarrhea this morning. He denies any diarrhea with eating fruits. No reports abdominal cramping. Electrolytes results were reviewed demonstrating low potassium however improved calcium. Results of thyroid studies also reviewed. No reports of abdominal pain. Objective - Vital Signs Vital signs: Vital Signs Temp 96.9 F L 06/10/16 07:57 Pulse 67 06/10/16 07:57 Resp 16 06/10/16 07:57 BP 101/62 06/10/16 07:57 Pulse Ox 91 L 06/10/16 07:57 Intake & Output 06/09/16 06/10/16 06/10/16 18:59 06:59 18:59 Intake Total 2560 1500 Output Total 200 Balance 2560 1300 Weight 72.575 kg Intake: IV 1500 Sodium Chloride 0.9% 1, 1500 000 ml @ 125 mls/hr IV . Q8H [facility] Rx#:[id number] Oral 2560 Output: Urine 200 Other: Voiding Method Toilet Toilet # Voids 2 2 - Exam GENERAL: Well developed and in no acute distress. Pleasant. HEENT: No sclera icterus. Extraocular movements grossly intact. Moist buccal mucosa. Head is atraumatic, normocephalic. Hears conversational speech. No nasal drainage. NECK: Supple without lymphadenopathy. No JV distention. CHEST: Non-labored respirations and equal bilateral excursions. CARDIOVASCULAR: Regular rate and rhythm. Palpable 2+ radial pulses. ABDOMEN: Soft, nontender. Nondistended. MUSCULOSKELETAL: No clubbing, cyanosis or edema. NEUROLOGIC: No focal or lateralizing signs. PSYCH: Appropriate affect. Alert and oriented to person, place and time. - Labs CBC & Chem 7: 06/09/16 06:30 06/10/16 06:57 Labs: Abnormal Lab Results - Last 24 Hours (Table) 06/09/16 06/09/16 06/09/16 Range/Units 06:30 13:40 18:13 Sodium (137-145) mmol/L Potassium (3.5-5.1) mmol/L Calcium 5.7 L* 6.5 L* 6.5 L* (8.4-10.2) mg/dL Ionized Calcium Nelson (4.5-5.3) mg/dL Creatine Kinase (55-170) U/L CK-MB (CK-2) (0.0-2.4) ng/mL PTH Intact (14.0-72.0) pg/mL 06/09/16 06/10/16 06/10/16 Range/Units 18:13 06:57 06:57 Sodium 133 L (137-145) mmol/L Potassium 3.0 L* (3.5-5.1) mmol/L Calcium 6.6 L (8.4-10.2) mg/dL Ionized Calcium Nelson 4.3 L (4.5-5.3) mg/dL Creatine Kinase 513 H (55-170) U/L CK-MB (CK-2) 2.7 H* (0.0-2.4) ng/mL PTH Intact 94.0 H (14.0-72.0) pg/mL Microbiology - Last 24 Hours (Table) 06/08/16 23:40 Stool for WBCs - Final Stool 06/08/16 23:40 Stool Culture - Preliminary Stool Assessment and Plan (1) Diarrhea Status: Chronic (2) Hypocalcemia Status: Acute (3) Hypomagnesemia Status: Acute (4) Gallbladder disorder Status: Acute (5) Dilated gallbladder Status: Acute (6) Gastroesophageal reflux disease Status: Chronic (7) Adverse effects of medication Status: Acute (8) Dehydration Status: Acute (9) Encounter for Hemoccult screening Status: Acute (10) Rhabdomyolysis Status: Acute (11) Hypothyroidism determined by thyroid function test Status: Acute (12) Hypokalemia due to loss of potassium Status: Acute Plan: 1. As his calcium has improved, his potassium is now low. He's on potassium replacement protocol. 2. Continue to correct calcium including with oral supplement. 3. Low fat gallbladder diet. 4. Continue IV fluid hydration. 5. Disposition home pending correction of electrolytes. 6. Per patient request, outpatient cholecystectomy.
[2016-06-10] MEDS: MAGNESIUM SULFATE-D5W PMX 1 GM in DEXTROSE/WATER 1 100ML.BAG IVPB SCH ×2 (11:16→15:14)
[2016-06-10 14:54] LABS: Anion Gap 8 mmol/L; Blood Urea Nitrogen 10 mg/dL (9-20); Calcium 6.9 mg/dL (8.4-10.2); Carbon Dioxide 20 mmol/L (22-30); Chloride 105 mmol/L (98-107); Glucose 98 mg/dL (74-99); Non-African American GFR(MDRD) >60 (>60 ml/min/1.73 sqM); Sodium 133 mmol/L (137-145)
[2016-06-10 14:59] LABS: Potassium 3.4 mmol/L (3.5-5.1)
[2016-06-10 15:32] VITALS: BP 116/71; PULSE 64; TEMP 98.1
[2016-06-10] MEDS ORDERED: POTASSIUM CHLORIDE ER 20 MEQ TAB.ER PO STA (16:16)
--- NOTE | 2016-06-12 08:43 | P.DS ---
Providers Date of admission: 06/08/16 15:41 Expected date of discharge: 06/10/16 Attending physician: Vianney Mejia Primary care physician: Ward Douglas - Discharge Diagnosis(es) (1) Diarrhea Status: Chronic (2) Hypocalcemia Status: Acute (3) Hypomagnesemia Status: Acute (4) Gallbladder disorder Status: Acute (5) Dilated gallbladder Status: Acute (6) Gastroesophageal reflux disease Status: Chronic (7) Adverse effects of medication Status: Acute (8) Dehydration Status: Acute (9) Encounter for Hemoccult screening Status: Acute (10) Rhabdomyolysis Status: Acute (11) Hypothyroidism determined by thyroid function test Status: Acute (12) Hypokalemia due to loss of potassium Status: Acute (13) Abnormal laboratory test Status: Acute Hospital Course: The patient is a 71-year-old gentleman who denies any previous abdominal surgeries. He reports 6 weeks ago eating spoiled yee and developed acute nausea and vomiting including diarrhea. He had at that time epigastric abdominal pain. Previously, he denies any fatty food intolerance. Over the last 6 weeks, he's lost over 30 pounds unintentional. Separately he had a CT of the abdomen and pelvis with his primary care provider that demonstrated a dilated gallbladder including questionable small bowel obstruction. He has been able to pass flatus with his bowel movements. His bowel movements have been liquid to clear at least 5 times daily. He has been taking Kaopectate including Imodium every day. He has self discontinued his Prilosec for gastroesophageal reflux disease. He denies any abdominal pain at the time of presentation to emergency room including admission. He denies any vomiting prior to admission. He had completed an abdominal x-ray that demonstrated no evidence of obstruction. Separately, he presents with severe electrolyte dyscrasias including low calcium and low magnesium. As a result, he has been admitted for unintentional weight loss, diarrhea, multiple electrolyte abnormalities. Additional workup demonstrated severe hypothyroidism including low potassium and secondary hyperparathyroidism from inadequate calcium intake. He had additional studies for his chronic diarrhea as it was related to his gallbladder dysfunction. He was found to have biliary dyskinesia. Additional surgical workup was reviewed. Prior to discharge electro-dyscrasias were improved. He was stable and tolerating diet. His diarrhea had improved. He had elected for outpatient management with a laparoscopic cholecystectomy. Pertinent Studies: Nuclear HIDA scan demonstrates biliary dyskinesia. Ultrasound of the gallbladder negative for gallstones. CT of the chest negative for pulmonary embolism. Chest x-ray negative for acute pneumonia. Procedures: None. Patient Condition at Discharge: Stable Plan - Discharge Summary New Discharge Prescriptions: Calcitriol [Rocaltrol] 0.25 mcg PO DAILY #30 cap Levothyroxine Sodium [Synthroid] 50 mcg PO DAILY@0630 #30 tab Potassium Chloride ER [K-Dur 20] 20 meq PO DAILY #30 tab Discharge Medication List Cholecalciferol [Vitamin D3] 5,000 unit PO DAILY 06/08/16 [History] Multivit-Min/FA/Lycopene/Lut [Centrum Silver Tablet] 1 tab PO DAILY 06/08/16 [ History] Calcitriol [Rocaltrol] 0.25 mcg PO DAILY #30 cap 06/10/16 [Rx] Levothyroxine Sodium [Synthroid] 50 mcg PO DAILY@0630 #30 tab 06/10/16 [Rx] Potassium Chloride ER [K-Dur 20] 20 meq PO DAILY #30 tab 06/10/16 [Rx] Omeprazole [PriLOSEC] 10 mg PO [id number] 06/15/16 [History] Hydrocodone/Acetaminophen [[place] 5-325] 1 - 2 each PO Q6HR PRN #60 tab 06/18/16 [Rx] Magnesium [place] 180 mg PO BID 06/18/16 [History] Tamsulosin HCl [Flomax] 0.4 mg PO DAILY #10 cap.er.24h 06/18/16 [Rx] Follow up Appointment(s)/Referral(s): Ward Douglas MD [Primary Care Provider] - 06/12/16 1:00 pm Ambulatory/Diagnostic Orders: Comprehensive Metabolic Panel [LAB.AMB] Time Frame: 06/12/16, Location: Determined By Patient Activity/Diet/Wound Care/Special Instructions: Call the results of the lab to the patient's attending Dr. Discharge Disposition: HOME SELF-CARE
== END 2016-06-10 17:31 | disposition home or self-care (01) | DRG 641 ==
LOC: EC 11:37 → 3SUR 15:41
PROVIDERS: ADMIT Surgery Plastic and Reconstructive Surgery; ATTEND Surgery Plastic and Reconstructive Surgery
DX: E83.51 Hypocalcemia (principal); M62.82 Rhabdomyolysis; E03.9 Hypothyroidism, unspecified; E86.0 Dehydration; E87.6 Hypokalemia; E83.42 Hypomagnesemia; K21.9 Gastro-esophageal reflux disease without esophagitis; K82.9 Disease of gallbladder, unspecified; Z87.891 Personal history of nicotine dependence; R19.7 Diarrhea, unspecified; T47.6X5A Adverse effect of antidiarrheal drugs, initial encounter
CPT/HCPCS: 36415; 71020; 71260; 71275; 74020; 74177; 78226; 80048; 80053; 80306; 80320; 81001; 82150; 82272; 82310; 82330; 82550; 82553; 82565; 82652; 83690; 83735; 83970; 84100; 84439; 84443; 84520; 85025; 85379; 87045; 87046; 87493; 89055; 93005; 96365; 96366; 99285

== ENCOUNTER 2016-06-18 05:50 | Day surgery (SDC) | payer MEDICARE ==
[2016-06-15 11:35] VITALS: BMI 23.6
[~2016-06-18 05:50] MED LIST: HEPARIN SODIUM,PORCINE 5,000 UNIT/ML 1 ML VIAL SQ ONE; ceFAZolin 2 GM in SODIUM CHLORIDE 0.9% 100 ML IVPB ONE
[2016-06-18] MEDS ORDERED: LACTATED RINGERS 1,000 ML IV SCH (06:00)
[2016-06-18] MEDS ORDERED: HYDROmorphone 1 MG/ML 1 ML SYRINGE IVP PRN (06:00)
[2016-06-18] MEDS ORDERED: ONDANSETRON 4 MG/2 ML VIAL IVP ONE (06:00)
[2016-06-18] MEDS ORDERED: DEXAMETHASONE SOD PHOSPHATE 10 MG/ML 1 ML VIAL IV ONE (06:00)
[2016-06-18] MEDS ORDERED: LIDOCAINE 1% 20 ML VIAL (10MG/ML) FOR IV START INTRADERMA ONE (07:07)
--- NOTE | 2016-06-18 07:33 | P.GSHP ---
History of Present Illness H&P Date: 06/18/16 CHIEF COMPLAINT: Cholecystitis HISTORY OF PRESENT ILLNESS: The patient is a 71-year-old male who presents with history of symptomatic biliary dyskinesia. He underwent diagnostic studies for his gallbladder. Separately his clinical picture was consistent with cholecystitis. Now he presents for surgical intervention. PAST MEDICAL HISTORY: Please see list PAST SURGICAL HISTORY: Please see list MEDICATIONS: Please see list ALLERGIES: Denies. SOCIAL HISTORY: No illicit drug use or recent tobacco use FAMILY HISTORY: Pertinent for gallbladder disease REVIEW OF ORGAN SYSTEMS: CONSTITUTIONAL: No reports of fevers or chills. HEENT: Denies any troubles with the vision or hearing. PHYSICAL EXAM: VITAL SIGNS: Afebrile vital signs stable GENERAL: Well-developed pleasant male in no acute distress. HEENT: No scleral icterus. Extraocular movements grossly intact. Moist buccal mucosa. NECK: Supple without lymphadenopathy. CHEST: Unlabored respirations. Equal bilateral excursions. CARDIOVASCULAR: Regular rate regular rhythm rhythm. Distal 2+ pulses. ABDOMEN: Soft, nondistended. MUSCULOSKELETAL: No clubbing, cyanosis, or edema. NEURO :Moves all extremities 4+/5. PSYCH: Alert and oriented to person, place and time. ASSESSMENT: 1. Biliary dyskinesia. 2. Chronic cholecystitis PLAN: 1. Will need a laparoscopic cholecystectomy possible open. Benefits and risks were described. 2. Heparin for DVT prophylaxis 5000 units. 3. Antibiotic prophylaxis. Past Medical History Past Medical History: GERD/Reflux, Thyroid Disorder Additional Past Medical History / Comment(s): recent admission for diarrhea for >month, weight loss, abnormal electrolytes, says gallbladder "not working" History of Any Multi-Drug Resistant Organisms: None Reported Past Surgical History: No Surgical Hx Reported Additional Past Surgical History / Comment(s): rupert cataracts Past Anesthesia/Blood Transfusion Reactions: No Reported Reaction Additional Past Anesthesia/Blood Transfusion Reaction / Comment(s): never received any blood. Past Psychological History: No Psychological Hx Reported Additional Psychological History / Comment(s): pt is independant, lives with step son and lucita in law. Smoking Status: Former smoker Past Alcohol Use History: None Reported Additional Past Alcohol Use History / Comment(s): started smoking at age 14, quit at age 30 was smoking 2 ppd. used to be heavy drinker when younger ,quit age 30. Past Drug Use History: None Reported - Past Family History Father Family Medical History: CVA/TIA Mother Additional Family Medical History / Comment(s): in a mva Medications and Allergies Home Medications Medication Instructions Recorded Confirmed Type Cholecalciferol [Vitamin D3] 5,000 unit PO DAILY 06/08/16 06/15/16 History Multivit-Min/FA/Lycopene/Lut 1 tab PO DAILY 06/08/16 06/15/16 History [Centrum Silver Tablet] Omeprazole [PriLOSEC] 10 mg PO AC-BRKFST 06/15/16 06/15/16 History Magnesium Taurite 180 mg PO BID 06/18/16 06/18/16 History Allergies Allergy/AdvReac Type Severity Reaction Status Date / Time topical iodine AdvReac skin Uncoded 06/18/16 06:11 blisters Surgical - Exam Vital Signs Temp Pulse Resp BP Pulse Ox 97.0 F L 98 16 128/91 98 06/18/16 06:26 06/18/16 06:26 06/18/16 06:26 06/18/16 06:26 06/18/16 06:26
[2016-06-18] MEDS ORDERED: fentaNYL (PF) 50 MCG/ML 2 ML AMP ONE (07:35)
[2016-06-18] MEDS ORDERED: NEOSTIGMINE 1 MG/ML 10 ML VIAL ONE (07:35)
[2016-06-18] MEDS ORDERED: LIDOCAINE 1% INJ 10MG/ML (20 ML MDV) ONE (07:35)
[2016-06-18] MEDS ORDERED: PROPOFOL 10 MG/ML 20 ML VIAL IV ONE (07:35)
[2016-06-18] MEDS ORDERED: KETOROLAC 30 MG/ML 1 ML VIAL ONE (07:35)
[2016-06-18] MEDS ORDERED: ROCURONIUM BROMIDE 10 MG/ML 10 ML VIAL IV ONE (07:35)
[2016-06-18] MEDS ORDERED: GLYCOPYRROLATE 0.2 MG/ML 2 ML VIAL ONE (07:35)
[2016-06-18] MEDS ORDERED: HYDROmorphone (PF) 1 MG/ML ONE (07:35)
[2016-06-18] MEDS ORDERED: SUCCINYLCHOLINE CHLORIDE 100 MG/5 ML SYR IV ONE (07:35)
[2016-06-18] MEDS ORDERED: MIDAZOLAM 2 MG/2 ML VIAL ONE (07:35)
[2016-06-18] MEDS ORDERED: BUPIVACAIN-EPI 0.25%-1:200,000 30 ML VIAL SQ ONE ×2 (07:40→07:58)
--- NOTE | 2016-06-18 08:52 | P.PCN ---
Date of Procedure: 06/18/16 Preoperative Diagnosis: Biliary dyskinesia, chronic cholecystitis Postoperative Diagnosis: Same Procedure(s) Performed: Laparoscopic cholecystectomy Anesthesia: SHEA, local Surgeon: Vianney Mejia Estimated Blood Loss (ml): 5 Pathology: other (Gallbladder) Condition: stable Disposition: floor Operative Findings: Intra-abdominal ascites, chronic cholecystitis with adhesions along the infundibulum and body of the gallbladder. Plan - Discharge Summary New Discharge Prescriptions: Hydrocodone/Acetaminophen [[place] 5-325] 1 - 2 each PO Q6HR PRN #60 tab PRN Reason: Pain Discharge Medication List Cholecalciferol [Vitamin D3] 5,000 unit PO DAILY 06/08/16 [History] Multivit-Min/FA/Lycopene/Lut [Centrum Silver Tablet] 1 tab PO DAILY 06/08/16 [ History] Calcitriol [Rocaltrol] 0.25 mcg PO DAILY #30 cap 06/10/16 [Rx] Levothyroxine Sodium [Synthroid] 50 mcg PO DAILY@0630 #30 tab 06/10/16 [Rx] Potassium Chloride ER [K-Dur 20] 20 meq PO DAILY #30 tab 06/10/16 [Rx] Omeprazole [PriLOSEC] 10 mg PO AC-BRKFST 06/15/16 [History] Hydrocodone/Acetaminophen [[place] 5-325] 1 - 2 each PO Q6HR PRN #60 tab 06/18/16 [Rx] Magnesium Taurite 180 mg PO BID 06/18/16 [History] Follow up Appointment(s)/Referral(s): Vianney Mejia MD [STAFF PHYSICIAN] - 07/07/16 Patient Instructions/Handouts: Laparoscopic Cholecystectomy (DC), Low Fat Diet (GEN) Activity/Diet/Wound Care/Special Instructions: No lifting over 4 pounds in 4 weeks. May shower. No bath tub soaks for 7 days. Discharge Disposition: HOME SELF-CARE
[2016-06-18] MEDS ORDERED: ONDANSETRON 4 MG/2 ML VIAL IVP PRN (08:53)
[2016-06-18] MEDS ORDERED: NALOXONE 0.4 MG/ML 1 ML VIAL IV PRN (08:53)
[2016-06-18] MEDS ORDERED: HYDROcodone/APAP 5-325MG 1 EACH TAB PO PRN (08:53)
[2016-06-18 08:54] VITALS: TEMP 97.4
[2016-06-18 10:17] VITALS: RESP 18
[2016-06-18 11:28] VITALS: BP 109/71; PULSE 60
[2016-06-18] MEDS ORDERED: TAMSULOSIN 0.4 MG CAP.ER.24H PO STA (11:55)
--- NOTE | 2016-06-29 14:29 | P.OP ---
Date of Procedure: 06/18/16 Description of Procedure: SURGEON: PING LOVETT MD TESTING MANAGER: None. PREOPERATIVE DIAGNOSES: 1. Chronic Cholecystitis. 2. Chronic diarrhea. 3. Biliary dyskinesia. 4. Uncontrolled hypothyroidism. 5. Gastroesophageal reflux disease. 6. Unintentional weight loss. 7. Hypoalbuminemia. POSTOPERATIVE DIAGNOSES: 1. Chronic Cholecystitis. 2. Chronic diarrhea. 3. Biliary dyskinesia. 4. Uncontrolled hypothyroidism. 5. Gastroesophageal reflux disease. 6. Unintentional weight loss. 7. Hypoalbuminemia. 8. Ascites. OPERATION: Laparoscopic cholecystectomy ANESTHESIA: General with 30 mL 0.25% Marcaine with epinephrine. ESTIMATED BLOOD LOSS: 5 mL. SPECIMENS REMOVED: Gallbladder. COMPLICATIONS: None. INDICATIONS: The patient is a 71-year-old male who presents with chronic cholelcystitis and biliary dyskinesia. Surgical intervention with a laparoscopic cholecystectomy was described at length including injury to the biliary tree, bleeding, infection, need for further surgery. Informed consent was obtained. DESCRIPTION OF THE PROCEDURE: The patient was brought to the operating room, laid in supine position. After general induction, the abdomen was prepped and draped in a standard sterile fashion. Prior to incision, a timeout protocol was confirmed with surgical team regarding patient's name, procedure to be performed including preoperative medications for which he had received heparin 5000 units subcutaneously as well as bilateral SCDs for DVT prophylaxis. A transverse 5 mm incision was made above the umbilicus and off to the right of the midline. Please note the skin was localized prior to incision. A 0 degree 5-mm laparoscopic trocar entry was performed and entered into the peritoneal cavity. Diagnostic laparoscopy confirmed no injury to bowel, viscera or mesentery. The liver serosa was completely unremarkable. Next, two 5 mm trocars were placed along the right costal margin followed by a 11 mm port at the left upper quadrant. The patient was placed in steep reverse Trendelenburg position with the right side up. The gallbladder fundus was retracted over the dome of the liver. Initial attention was brought to the infundibulum which was gently retracted in the inferior lateral approach. Using a Kittner, the cystic duct including the cystic artery was carefully skeletonized. Using a large clip relays draftsperson 2 clips were placed proximally, and 2 clip was placed distally along the cystic duct and then cut. Again care was taken to avoid any injury to the biliary tree as the common bile duct was clearly visualized during this portion of dissection. Next, the cystic artery was clipped twice proximally, once distally and then cauterized. Electro-Bovie cautery was used to remove the gallbladder from the hepatic fossa without decompression of the gallbladder. Hemostasis was checked and found to be adequate. The gallbladder was removed from the abdominal cavity using an Endo Catch bag and passed off for further pathological analysis. All instruments and pneumoperitoneum were removed from the abdominal cavity. The fascial defect was for the 11-mm port site was oversewn using 0 Vicryl. The rest of incisions were reapproximated using 4-0 Monocryl in an interrupted subcuticular fashion. A total of 30 mL of 0.25% Marcaine with epinephrine was infiltrated to all wounds for postop analgesia. Dermabond was applied to the skin. At the end of the procedure, needle, sponge, and instrument count was verified correct by surgical garment fitter. The patient had tolerated the procedure well and was taken to postanesthesia care unit in stable condition. Intraoperative films were discussed and reviewed with the patient's family who were pleased with the level of care. FINDINGS: 1. Chronic cholecystitis with adhesions along the infundibulum and body of the gallbladder. 2. Intra-abdominal ascites.
== END 2016-06-18 13:49 | disposition home or self-care (01) ==
LOC: OR 05:50
PROVIDERS: ATTEND Surgery Plastic and Reconstructive Surgery
DX: K81.1 Chronic cholecystitis (principal); E07.9 Disorder of thyroid, unspecified; K21.9 Gastro-esophageal reflux disease without esophagitis; R18.8 Other ascites; K66.0 Peritoneal adhesions (postprocedural) (postinfection); Z87.891 Personal history of nicotine dependence; Z79.899 Other long term (current) drug therapy; Z88.8 Allergy status to other drugs, medicaments and biological substances
CPT/HCPCS: 47562; 88304; J2250; J1644; J1100; J2710; J0690; J2405; J2001; J3010; J1885; J1170; J0330; J2704

== ENCOUNTER → 2016-07-21 | Outpatient (CLI) | payer MEDICARE ==
[2016-07-21 10:08] LABS: ALT 63 U/L (21-72); AST 101 U/L (17-59); Alkaline Phosphatase 145 U/L (38-126); Anion Gap 6 mmol/L; Blood Urea Nitrogen 14 mg/dL (9-20); Calcium 6.9 mg/dL (8.4-10.2); Carbon Dioxide 23 mmol/L (22-30); Chloride 103 mmol/L (98-107); Glucose 85 mg/dL (74-99); Non-African American GFR(MDRD) >60 (>60 ml/min/1.73 sqM); Potassium 4.5 mmol/L (3.5-5.1); Sodium 132 mmol/L (137-145); Total Bilirubin 0.5 mg/dL (0.2-1.3); Total Protein 5.2 g/dL (6.3-8.2)
== END | disposition home or self-care (01) ==
LOC: LABWHC1 09:11
PROVIDERS: ATTEND Surgery Plastic and Reconstructive Surgery
DX: I10 Essential (primary) hypertension (principal); E03.9 Hypothyroidism, unspecified
CPT/HCPCS: 36415; 80053; 83735; 83970; 84439; 84443

== ENCOUNTER 2016-07-28 12:22 | Inpatient (IN) | payer MEDICARE ==
--- NOTE | 2016-07-28 12:48 | ED ---
General Adult HPI - General Chief complaint: Shortness of Breath Stated complaint: Rapid Heart Rate, DAJUAN Time Seen by Provider: 07/28/16 12:48 Source: patient, RN notes reviewed, old records reviewed Mode of arrival: wheelchair Limitations: no limitations - History of Present Illness Initial comments: This is a 71-year-old male here for evaluation. This patient is here today for evaluation multiple complaints. Patient has no known underlying medical conditions, recent gallbladder surgery. Patient states since his gallbladder surgery is continuing to get worse, lose weight and decreased activity level severe shortness of breath with exertion. Denies chest pain denies abdominal pain denies fevers. 72 diarrhea and decreased appetite, malnutrition. Patient is very short of breath and up and talking - Related Data Home Medications Medication Instructions Recorded Confirmed Multivit-Min/FA/Lycopene/Lut 1 tab PO DAILY 06/08/16 07/28/16 [Centrum Silver Tablet] Omeprazole [PriLOSEC] 10 mg PO AC-BRKFST 06/15/16 07/28/16 Magnesium Taurite 180 mg PO BID 06/18/16 07/28/16 Previous Rx's Medication Instructions Recorded Calcitriol [Rocaltrol] 0.25 mcg PO DAILY #30 cap 06/10/16 Levothyroxine Sodium [Synthroid] 50 mcg PO DAILY@0630 #90 tab 07/21/16 Magnesium Oxide [Magox 400] 400 mg PO DAILY #60 tablet 07/21/16 Potassium Chloride ER [K-Dur 20] 20 meq PO DAILY #90 tab 07/21/16 Allergies Allergy/AdvReac Type Severity Reaction Status Date / Time iodine Allergy Rash/Hives Verified 07/28/16 14:29 Review of Systems ROS Statement: Those systems with pertinent positive or pertinent negative responses have been documented in the HPI. ROS Other: All systems not noted in ROS Statement are negative. Past Medical History Past Medical History: GERD/Reflux, Thyroid Disorder Additional Past Medical History / Comment(s): recent admission for diarrhea for >month, weight loss, abnormal electrolytes, says gallbladder "not working" History of Any Multi-Drug Resistant Organisms: None Reported Past Surgical History: No Surgical Hx Reported Additional Past Surgical History / Comment(s): rupert cataracts Past Anesthesia/Blood Transfusion Reactions: No Reported Reaction Additional Past Anesthesia/Blood Transfusion Reaction / Comment(s): never received any blood. Past Psychological History: No Psychological Hx Reported Additional Psychological History / Comment(s): pt is independant, lives with step son and lucita in law. Smoking Status: Former smoker Past Alcohol Use History: None Reported Additional Past Alcohol Use History / Comment(s): started smoking at age 14, quit at age 30 was smoking 2 ppd. used to be heavy drinker when younger ,quit age 30. Past Drug Use History: None Reported - Past Family History Father Family Medical History: CVA/TIA Mother Additional Family Medical History / Comment(s): in a mva General Exam Limitations: no limitations General appearance: alert, in no apparent distress Head exam: Present: atraumatic, normocephalic, normal inspection Eye exam: Present: normal appearance, PERRL, EOMI. Absent: scleral icterus, conjunctival injection, periorbital swelling ENT exam: Present: normal exam, mucous membranes moist Neck exam: Present: normal inspection. Absent: tenderness, meningismus, lymphadenopathy Respiratory exam: Present: normal lung sounds bilaterally. Absent: respiratory distress, wheezes, rales, rhonchi, stridor Cardiovascular Exam: Present: normal rhythm, tachycardia, normal heart sounds. Absent: systolic murmur, diastolic murmur, rubs, gallop, clicks GI/Abdominal exam: Present: soft, normal bowel sounds. Absent: distended, tenderness, guarding, rebound, rigid Extremities exam: Present: normal inspection, full ROM, normal capillary refill. Absent: tenderness, pedal edema, joint swelling, calf tenderness Back exam: Present: normal inspection Neurological exam: Present: alert, oriented X3, CN II-XII intact Psychiatric exam: Present: normal affect, normal mood Skin exam: Present: warm, dry, intact, normal color. Absent: rash Course Vital Signs 07/28/16 07/28/16 07/28/16 12:41 13:06 13:46 Temperature 96.8 F L Pulse Rate 123 H 111 H Respiratory 28 H 20 16 Rate Blood Pressure 98/67 106/70 O2 Sat by Pulse 97 100 Oximetry 07/28/16 07/28/16 14:02 14:24 Temperature Pulse Rate 96 94 Respiratory Rate Blood Pressure O2 Sat by Pulse Oximetry - Reevaluation(s) Reevaluation #1: 07/28/16 15:25 Speaking with patient and is patient is very concerned EKG Findings - EKG Comments: EKG Findings:: EKG shows sinus tachycardia rate 106, AL 132, QRS of 4, QTC 433 Medical Decision Making - Medical Decision Making 6 mL here for evaluation of shortness of breath exertional shortness of breath CHF COPD and diffuse anasarca. Patient be admitted for cardiac evaluation, reevaluation by Gen. surgery patient denies chest pain denies abdominal pain we will obtain CTA BILATERAL X-RAY SECONDARY TO ELEVATED D-DIMER, SEVERELY HYPOMAGNESEMIA WITH SEVERE PROTEIN CALORIE MALNUTRITION - Lab Data Result diagrams: 07/28/16 15:14 07/28/16 15:14 Lab Results 07/28/16 07/28/16 07/28/16 Range/Units 15:14 15:14 15:14 WBC 11.1 H (3.8-10.6) k/uL RBC 3.64 L (4.30-5.90) m/uL Hgb 12.3 L (13.0-17.5) gm/dL Hct 37.1 L (39.0-53.0) % MCV 101.9 H (80.0-100.0) fL MCH 33.8 (25.0-35.0) pg MCHC 33.1 (31.0-37.0) g/dL RDW 15.1 (11.5-15.5) % Plt Count 252 (150-450) k/uL Neutrophils % 81 % Lymphocytes % 12 % Monocytes % 5 % Eosinophils % 1 % Basophils % 0 % Neutrophils # 9.1 H (1.3-7.7) k/uL Lymphocytes # 1.3 (1.0-4.8) k/uL Monocytes # 0.5 (0-1.0) k/uL Eosinophils # 0.1 (0-0.7) k/uL Basophils # 0.0 (0-0.2) k/uL Macrocytosis Slight PT 17.2 H (9.0-12.0) sec INR 1.8 (<1.1) APTT 29.5 (22.0-30.0) sec D-Dimer 5.47 H (<0.60) mg/L FEU Sodium 130 L (137-145) mmol/L Potassium 4.6 (3.5-5.1) mmol/L Chloride 104 (98-107) mmol/L Carbon Dioxide 22 (22-30) mmol/L Anion Gap 4 mmol/L BUN 18 (9-20) mg/dL Creatinine 0.76 (0.66-1.25) mg/dL Est GFR (MDRD) Af Amer >60 (>60 ml/min/1.73 sqM) Est GFR (MDRD) Non-Af >60 (>60 ml/min/1.73 sqM) Glucose 89 (74-99) mg/dL Calcium 6.9 L (8.4-10.2) mg/dL Magnesium 1.0 L* (1.6-2.3) mg/dL Total Bilirubin 0.7 (0.2-1.3) mg/dL AST 132 H (17-59) U/L ALT 72 (21-72) U/L Alkaline Phosphatase 166 H (38-126) U/L Total Protein 5.1 L (6.3-8.2) g/dL Albumin 1.5 L (3.5-5.0) g/dL - Radiology Data Radiology results: report reviewed (Chest x-ray shows positive CHF), image reviewed Critical Care Time Critical Care Time: Yes Total Critical Care Time: 31 Disposition Clinical Impression: Acute exacerbation of chronic obstructive airways disease, Congestive heart failure, Gallbladder disorder, Anasarca, Hypomagnesemia, Severe protein-calorie malnutrition Disposition: ADMITTED IP TO THIS HOSP Condition: Fair Referrals: Ward Douglas MD [Primary Care Provider] - 1-2 days
[2016-07-28] MEDS ORDERED: SODIUM CHLORIDE 0.9% 1,000 ML IV STA (13:46)
[2016-07-28] MEDS ORDERED: IPRATROPIUM-ALBUTEROL 3 ML NEB INHALATION STA (13:46)
--- NOTE | 2016-07-28 15:02 | XR ---
EXAMINATION TYPE: XR chest 2V DATE OF EXAM: 07/28/2016 2:46 PM COMPARISON: Chest x-ray and CTA chest June 08, 2016. HISTORY: Irregular heart rate. Difficulty in breathing. TECHNIQUE: Frontal and lateral views of the chest are obtained. FINDINGS: There is is mild underlying emphysematous change. There is new patchy left basilar lateral atelectasis and/or infiltrate. There are suspected new tiny bilateral pleural effusions with bluntin g of bilateral posterior costophrenic angles. The cardiac silhouette size is within normal limits. The osseous structures are demineralized. IMPRESSION: Mild underlying emphysematous change with new tiny bilateral pleural effusions and patch y left lateral basilar atelectasis and/or infiltrate.
[2016-07-28 15:32] LABS: Basophils % (A) 0 %; CH 33.7; CHCM 33.4; Eosinophils # (A) 0.1 k/uL (0-0.7); Eosinophils % (A) 1 %; HCT 37.1 % (39.0-53.0); HDW 3.06; HGB 12.3 gm/dL (13.0-17.5); Luc # (Auto) 0.17; Luc % (Auto) 2; Lymphocytes # (A) 1.3 k/uL (1.0-4.8); Lymphocytes % (A) 12 %; MCH 33.8 pg (25.0-35.0); MCHC 33.1 g/dL (31.0-37.0); MCV 101.9 fL (80.0-100.0); Macrocytosis Slight; Mean Platelet Volume 9.1; Monocytes # (A) 0.5 k/uL (0-1.0); Monocytes % (A) 5 %; Neutrophils # (A) 9.1 k/uL (1.3-7.7); Neutrophils % (A) 81 %; RBC 3.64 m/uL (4.30-5.90); RDW 15.1 % (11.5-15.5); WBC 11.1 k/uL (3.8-10.6); WBC (Perox) 10.95
[2016-07-28 15:40] LABS: ALT 72 U/L (21-72); AST 132 U/L (17-59); Alkaline Phosphatase 166 U/L (38-126); Anion Gap 4 mmol/L; Blood Urea Nitrogen 18 mg/dL (9-20); Calcium 6.9 mg/dL (8.4-10.2); Carbon Dioxide 22 mmol/L (22-30); Chloride 104 mmol/L (98-107); Glucose 89 mg/dL (74-99); Non-African American GFR(MDRD) >60 (>60 ml/min/1.73 sqM); Potassium 4.6 mmol/L (3.5-5.1); Sodium 130 mmol/L (137-145); Total Bilirubin 0.7 mg/dL (0.2-1.3); Total Protein 5.1 g/dL (6.3-8.2)
[2016-07-28 15:49] LABS: INR 1.8 (<1.1); Partial Thromboplastin Time 29.5 sec (22.0-30.0); Prothrombin Time 17.2 sec (9.0-12.0)
[2016-07-28] MEDS ORDERED: RX INFO: IV CONTRAST WAS GIVEN 1 EACH MISC MISCELLANE PRN ×2 (15:54→16:00)
[2016-07-28] MEDS ORDERED: IPRATROPIUM-ALBUTEROL 3 ML NEB INHALATION PRN (15:54)
[2016-07-28 15:55] LABS: Creatine Kinase 127 U/L (55-170)
[2016-07-28] MEDS ORDERED: diphenhydrAMINE 50 MG/ML 1 ML VIAL IVP STA (15:57)
[2016-07-28] MEDS ORDERED: methylPREDNISolone SOD SUCCI 125 MG/2 ML VIAL IV STA (15:57)
[2016-07-28] MEDS ORDERED: FAMOTIDINE 20 MG/2 ML VIAL IV STA (15:57)
[2016-07-28] MEDS: FUROSEMIDE 10 MG/ML 4 ML VIAL IV SCH (16:02)
[2016-07-28] MEDS: MAGNESIUM SULFATE-D5W PMX 1 GM in DEXTROSE/WATER 1 100ML.BAG IVPB SCH ×4 (16:04→21:42)
[2016-07-28 16:07] LABS: Creatine Kinase MB 2.1 ng/mL (0.0-2.4); Troponin I <0.012 ng/mL (0.000-0.034)
--- NOTE | 2016-07-28 17:00 | CT ---
EXAMINATION TYPE: CT angio chest DATE OF EXAM: 07/28/2016 4:45 PM COMPARISON: CTA chest June 08, 2016. HISTORY: Difficulty breathing. CT DLP: 2178.00 mGycm. Automated Exposure Control for Dose Reduction was Utilized. CONTRAST: CTA scan of the thorax is performed with IV Contrast, patient injected with 100 mL of Omnipaque 350, pulmonary embolism protocol. MIP Images are created on CT scanner and reviewed. FINDINGS: LUNGS: There is peripheral focal atelectasis or consolidation measuring 1.7 x 0.8 cm laterally in the left lower lobe on axial image 106 new from prior exam. There is additional ill-defined consolidatio n inferior to this in the lateral aspect of the left lower lobe. There is persistent nodular consolid ation or scarring in the right middle lobe abutting diaphragm. There is new small to tiny bilateral p leural effusions. No pneumothorax is seen bilaterally. Tracheobronchial tree is patent. MEDIASTINUM: There is satisfactory enhancement of the pulmonary artery and its branches, there is no CT evidence for pulmonary embolism. There are no greater than 1 cm hilar or mediastinal lymph nodes . No cardiomegaly or pericardial effusion is seen. Coronary artery calcification is redemonstrated. OTHER: Osseous structures are demineralized. Exaggerated thoracic kyphosis is redemonstrated. Please refer to same day CT abdomen and pelvis report for complete details of the upper abdomen. IMPRESSION: 1. No CT evidence for pulmonary embolism. 2. New focal atelectasis and/or consolidation laterally involving the left lower lobe, correlate for focal pneumonia. 3. New small to tiny bilateral pleural effusions. Correlate for fluid overload state.
--- NOTE | 2016-07-28 17:05 | CT ---
EXAMINATION TYPE: CT abdomen pelvis w con DATE OF EXAM: 07/28/2016 4:45 PM COMPARISON: CT cap June 05, 2016. HISTORY: Scrotal swelling. Difficulty in breathing. CT DLP: 2178.00 mGycm, Automated Exposure Control for Dose Reduction was Utilized. CONTRAST: CT scan of the abdomen and pelvis is performed without oral but with IV Contrast, patient injected wi th 100 mL of Omnipaque 350. FINDINGS: Exam is suboptimal as patient has very little intra-abdominal fat. LUNG BASES: Please refer to same day CTA chest report for complete details. LIVER/GB: Gallbladder is now surgically absent as cholecystectomy clips are now present. Visualized l iver is low dense suggesting fatty infiltration. Liver somewhat small in size. Underlying hepatocellu lar disease is not excluded. Some surrounding perihepatic ascites is seen. PANCREAS: No significant abnormality is seen. SPLEEN: Remnant small calcified spleen is redemonstrated. ADRENALS: No significant abnormality is seen. KIDNEYS: No significant abnormality is seen. BOWEL: Evaluation bowel is suboptimal secondary to lack of enteric contrast. There is no suspicious s mall or large bowel dilatation seen. PROSTATE/SEMINAL VESICLES: No gross abnormality seen. LYMPH NODES: No greater than 1cm abdominal or pelvic lymph nodes are appreciated. OSSEOUS STRUCTURES: There is transitional-type vertebra at lumbosacral junction. OTHER: There is mild calcified atherosclerotic change of the abdominal aorta extending to pelvic bran ch vessels. There is severe scrotal fluid collection or hydroceles seen bilaterally. There is moderate to severe diffuse soft tissue anasarca seen bilaterally. There are patent iliac marv ining veins in the pelvis as well as IVC. There is small amount of ascites in the paracolic gutters bilaterally. Small amount of free fluid is seen in the pelvis. IMPRESSION: 1. Moderate to severe diffuse subcutaneous edema or soft tissue anasarca. Large scrotal fluid collect ion or hydroceles bilaterally. Only mild intra-abdominal and pelvic ascites. Somewhat small hypodense liver, correlate for cirrhosis versus fatty infiltration. Clinical and lab correlation advised.
[2016-07-28 19:33] LABS: Phosphorous 2.7 mg/dL (2.5-4.5)
--- NOTE | 2016-07-28 19:33 | P.GSCN ---
History of Present Illness Consult date: 07/28/16 Reason for Consult: Generalized weakness Requesting physician: Wilson Abraham History of present illness: The patient is a 71-year-old gentleman well-known to me as he was last in the office 1 week ago for history of multiple electrolyte dyscrasias including hypokalemia, hypothyroidism, hypo-magnesia, hypocalcemia, and diarrhea. He reported that his diarrhea had moderately improved. He did obtain outpatient labs which is consistent with hypo-magnesia and was started on magnesium supplements. He reports 3 days ago developing new onset scrotal edema. Earlier today, he reports significant new weakness. He has poor appetite. Reports new onset persistent hypotension of systolic blood pressures in the 80s to 90s in the last 3 days. He then presented to the emergency room. Findings are consistent with new onset elevated INR although he is not on blood thinners. He comes in with severe edema of the bilateral lower legs including profound dyspnea on exertion. He also reports new onset tremors which is just started within the last 2 days. As a result of his previous diarrhea, Gen. surgery is also consulted. Review of Systems CONSTITUTIONAL: Denies any fever or chills. Unintentional weight loss over 60 pounds in 3 months. HEENT: Denies any trouble with vision, hearing or nosebleeds. No difficulty swallowing. LYMPHATIC: The patient denies any lumps and bumps around the neck. ENDOCRINE: Has hypothyroidism. Denies any blood sugar glucose intolerance. RESPIRATORY: Denies pneumonia. Has new onset dyspnea on exertion. CARDIOVASCULAR: Denies any chest pain, palpitations, or recent heart attacks. He reports persistent hypotension with systolic blood pressure in the 80s to 90s. GASTROINTESTINAL: Denies heart burn, constipation or bright red blood per rectum. Has diarrhea. No reports of previous colonoscopy as patient has refused in the past. GENITOURINARY: Denies any blood in urine or increased urinary frequency. New- onset scrotal swelling. MUSCULOSKELETAL: Has back pain, stiffness, joint arthritis. NEUROLOGIC: Denies any numbness or tingling along the distal extremities. No seizure disorders or headaches. New intentional tremors. New increased weakness and fatigue. PSYCHIATRIC: Denies depression or suidical ideation. HEMATOLOGIC: Denies any abnormal bleeding or bruising. Past Medical History Past Medical History: GERD/Reflux, Thyroid Disorder Additional Past Medical History / Comment(s): recent admission for diarrhea for >month, weight loss, abnormal electrolytes, says gallbladder "not working" History of Any Multi-Drug Resistant Organisms: None Reported Past Surgical History: Cholecystectomy Additional Past Surgical History / Comment(s): rupert cataracts Past Anesthesia/Blood Transfusion Reactions: No Reported Reaction Additional Past Anesthesia/Blood Transfusion Reaction / Comm: never received any blood. Past Psychological History: No Psychological Hx Reported Additional Psychological History / Comment(s): pt is independant, lives with step son and lucita in law. Smoking Status: Former smoker Past Alcohol Use History: None Reported Additional Past Alcohol Use History / Comment(s): started smoking at age 14, quit at age 30 was smoking 2 ppd. used to be heavy drinker when younger ,quit age 30. Past Drug Use History: None Reported - Past Family History Father Family Medical History: CVA/TIA Mother Additional Family Medical History / Comment(s): in a mva Medications and Allergies Home Medications Medication Instructions Recorded Confirmed Type Multivit-Min/FA/Lycopene/Lut 1 tab PO DAILY 06/08/16 07/28/16 History [Centrum Silver Tablet] Omeprazole [PriLOSEC] 10 mg PO AC-BRKFST 06/15/16 07/28/16 History Magnesium Taurite 180 mg PO BID 06/18/16 07/28/16 History Allergies Allergy/AdvReac Type Severity Reaction Status Date / Time iodine Allergy Rash/Hives Verified 07/28/16 14:29 Surgical - Exam Vital Signs Temp Pulse Resp BP Pulse Ox 96.8 F L 123 H 28 H 98/67 97 07/28/16 12:41 07/28/16 12:41 07/28/16 12:41 07/28/16 12:41 07/28/16 12:41 GENERAL: Well developed and in mild distress. Pleasant. HEENT: No sclera icterus. Extraocular movements grossly intact. Moist buccal mucosa. Head is atraumatic, normocephalic. Hears conversational speech. No nasal drainage. Muscle wasting and atrophy along the bilateral zygomatic processes which is new. NECK: Supple without lymphadenopathy. No JV distention. Severe muscle wasting along the sternocleidomastoid muscles. CHEST: Labored respirations and equal bilateral excursions. CARDIOVASCULAR: Tachycardic. Palpable 2+ radial pulses. ABDOMEN: Soft, nontender. Nondistended. Positive fluid wave consistent with ascites. MUSCULOSKELETAL: No clubbing, cyanosis. Distal 3+ edema. GENITOURINARY: Moderate scrotal edema over 3+ to 4+. NEUROLOGIC: No focal or lateralizing signs. Has intentional tremors. Cranial nerves II-12 grossly intact. PSYCH: Appropriate affect. Alert and oriented to person, place and time. Results - Labs 07/28/16 15:14 07/28/16 15:14 - Imaging CT scan - abdomen: report reviewed, image reviewed CT scan - chest: report reviewed, image reviewed CT scan - pelvis: report reviewed, image reviewed (No findings of small bowel or large bowel obstruction however moderate ascites and anasarca confirmed. No colitis.) Assessment and Plan (1) Marasmic kwashiorkor Status: Acute (2) Hypothyroidism Status: Chronic (3) Muscle wasting Status: Acute (4) Hyperdynamic circulation Status: Acute (5) Cardiomyopathy due metabolic or nutritional disease Status: Acute (6) Anasarca Status: Acute (7) Hypomagnesemia Status: Chronic (8) Severe protein-calorie malnutrition Status: Acute (9) Dehydration Status: Acute (10) Hypocalcemia Status: Chronic (11) Hypomagnesemia Status: Acute (12) Diarrhea Status: Chronic (13) Scrotal edema Status: Acute Plan: 1. He has history of chronic diarrhea which puts him at risk for electrolyte and protein losses as well as dehydration. 2. His generalized anasarca is consistent with severe muscle wasting and kwashiorkor. 3. Scrotal edema is also secondary to severe anasarca and severe protein malnutrition and adequate protein intake. Recommend scrotal support. 4. He has hyperdynamic cardiomyopathy. Recommend in detail metabolic workup including for beriberi syndrome, thiamine deficiency, B complex deficiency. 5. To correct diarrhea, recommend Imodium. 6. A villous adenoma of the colon cannot be excluded patient also present as high output diarrhea with electrolyte abnormalities. At some point, he will need a colonoscopy once hemodynamics stable. 7. Recommend correction of all electrolyte abnormalities including chronic hypo -magnesia, hypocalcemia, vitamin D deficiency. 8. Recommend thyroid panel to evaluate for hyper versus hypothyroidism. His recent labs 1 week ago was consistent with corrected hypothyroidism 2 months ago. 9. Recommend phosphorus correction and cautious evaluation for refeeding syndrome. 10. Recommend dietary evaluation as well. We will follow closely.
--- NOTE | 2016-07-28 19:54 | US ---
EXAMINATION TYPE: US venous doppler duplex LE DATE OF EXAM: 07/28/2016 7:42 PM COMPARISON: NONE CLINICAL HISTORY: Pain. Swelling bilaterally SIDE PERFORMED: Bilateral TECHNIQUE: The lower extremity deep venous system is examined utilizing real time linear array sonog audra with graded compression, doppler sonography and color-flow sonography. VESSELS IMAGED: External Iliac Vein (EIV) Common Femoral Vein Deep Femoral Vein Greater Saphenous Vein * Femoral Vein Popliteal Vein Small Saphenous Vein * Proximal Calf Veins (* superficial vessels) Right Leg: Negative for DVT Left Leg: Positive for DVT from the left EIV to the left proximal calf vein. There is some thready f low within the left CFV IMPRESSION: 1. Left lower extremity DVT as noted above. 2. Negative evaluation of the right lower extremity at this time.
[2016-07-28 21:39] LABS: Hemoglobin A1C 5.4 % (4.2-6.1)
[2016-07-28] MEDS: ENOXAPARIN 60 MG/0.6 ML SYRINGE SQ SCH (22:18)
[2016-07-29] MEDS ORDERED: LOPERAMIDE 2 MG CAP PO PRN (06:09)
[2016-07-29] MEDS: PANTOPRAZOLE 40 MG TABLET PO SCH (06:57)
[2016-07-29] MEDS: FUROSEMIDE 10 MG/ML 4 ML VIAL IV SCH ×2 (06:57→22:05)
[2016-07-29] MEDS: LEVOTHYROXINE 75 MCG TAB PO SCH (06:57)
[2016-07-29 07:35] LABS: Basophils # (A) 0.1 k/uL (0-0.2); Basophils % (A) 0 %; CH 33.6; CHCM 34.3; Eosinophils % (A) 0 %; HCT 31.7 % (39.0-53.0); HDW 3.02; HGB 10.7 gm/dL (13.0-17.5); Luc # (Auto) 0.18; Luc % (Auto) 2; Lymphocytes # (A) 1.5 k/uL (1.0-4.8); Lymphocytes % (A) 13 %; MCH 33.3 pg (25.0-35.0); MCHC 33.7 g/dL (31.0-37.0); Macrocytosis Slight; Monocytes # (A) 0.9 k/uL (0-1.0); Monocytes % (A) 8 %; Neutrophils # (A) 8.7 k/uL (1.3-7.7); Neutrophils % (A) 77 %; RDW 15.2 % (11.5-15.5); WBC 11.3 k/uL (3.8-10.6); WBC (Perox) 10.32
[2016-07-29 07:48] LABS: ALT 73 U/L (21-72); AST 120 U/L (17-59); Alkaline Phosphatase 150 U/L (38-126); Anion Gap 3 mmol/L; Blood Urea Nitrogen 16 mg/dL (9-20); Calcium 6.9 mg/dL (8.4-10.2); Carbon Dioxide 24 mmol/L (22-30); Chloride 103 mmol/L (98-107); Glucose 94 mg/dL (74-99); Magnesium 1.8 mg/dL (1.6-2.3); Non-African American GFR(MDRD) >60 (>60 ml/min/1.73 sqM); Potassium 3.6 mmol/L (3.5-5.1); Sodium 130 mmol/L (137-145); Total Bilirubin 0.5 mg/dL (0.2-1.3); Total Protein 4.5 g/dL (6.3-8.2)
[2016-07-29] MEDS: SODIUM CHLORIDE 0.9% 1,000 ML IV SCH ×2 (08:19→11:51)
[2016-07-29] MEDS: ENOXAPARIN 60 MG/0.6 ML SYRINGE SQ SCH ×2 (08:32→22:05)
[2016-07-29] MEDS ORDERED: ENOXAPARIN 40 MG/0.4 ML SYRINGE SQ SCH (09:00)
--- NOTE | 2016-07-29 09:41 | HP ---
DATE OF ADMISSION: 07/28/2016 PRESENTING COMPLAINT: Weak and tired. HISTORY OF PRESENTING COMPLAINT: A very pleasant 71-year-old patient of Dr. Douglas, the patient about 6 weeks ago started having diarrhea that progressively got worse. The patient thought he might have had some frozen yee, not cooked well. It became worse. The patient's diarrhea was watery. The patient continued to lose weight. The patient then presented to the ER. He was seen by Dr. Briggs, who found a nonfunctioning gallbladder. He underwent a cholecystectomy. Patient has continued to have diarrhea, weak, tired, not able to keep much down. Patient now presents with severe dyselectrolytemia including macrocytic anemia, pro-time being up, magnesium being down, and severe hypoalbuminemia of 1.5. REVIEW OF SYSTEMS: CONSTITUTIONAL: Weak, tired, decreased appetite. HEENT: None. RESPIRATORY: None. CARDIOVASCULAR: None. GASTROINTESTINAL: Some abdominal distention. Diarrhea as above. MUSCULOSKELETAL: None. DERMATOLOGIC: None. HEMATOLOGIC: None. LYMPHATIC: None. PSYCHIATRY: None. NEUROLOGICAL: None. PAST MEDICAL HISTORY: GERD, possible hypothyroid. PAST SURGICAL HISTORY: Cholecystectomy, bilateral cataracts. SOCIAL HISTORY: The patient lives with his stepson and [id number]. The patient smoked from age of 14, quit at 30. Smoked 2 packs per day. He used to be a heavy drinker, quit again at age of 30. 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 FAMILY HISTORY: Stroke. HOME MEDICATIONS: 1. Potassium 20 mEq. 2. Synthroid 50 mcg p.o. daily. 3. Prilosec 10 mg p.o. daily. 4. Centrum Silver 1 tablet daily. 5. Magnesium 180 mg p.o. b.i.d. 6. Magnesium 400, 400 mg daily. 7. Calcitriol 0.25 mcg p.o. daily. ALLERGIES: IODINE. On examination, vital signs on presentation: Temperature 96.8, pulse 123, respirations 28, blood pressure 98/67, pulse ox 97% on room air. GENERAL APPEARANCE: Thin build. BMI of 40.7. Sitting up. Tired appearing. EYES: Pupils equal. Conjunctivae pale. HEENT: Oral cavity with dry mucous membrane. NECK: JVD not raised. Mass not palpable. RESPIRATORY: Effort normal. LUNGS: Diminished breath sounds. CARDIOVASCULAR: First and second sounds normal. No edema present. ABDOMEN: Distended, soft. Liver and spleen not palpable. LYMPHATIC: No lymph nodes palpable in neck or axillae. PSYCHIATRY: Alert and oriented x3. Mood and affect normal. NEUROLOGICAL: Pupils equal. Power and sensation intact. INVESTIGATIONS: White count 11.1, hemoglobin 12.3, platelets 252, pro-time 7.2. Potassium 4.6. Sodium 130, BUN 18, creatinine 0.76, calcium 0.9, magnesium 1, AST 132, albumin 1.5, TSH 4.9, free T3 of 2.5. Chest x-ray showed small tiny pleural effusions, some atelectasis. Chest CTA negative for PE. Venous Doppler left lower extremity deep venous thrombosis. CT scan of the abdomen and pelvis, some suggestion of fatty liver, small in size, moderate to severe diffuse subcutaneous edema without scrotal swelling or fluid collection. ASSESSMENT: 1. This is a patient who has been having diarrhea, nausea, vomiting, on and off for a good 6 weeks. In the interim the patient also had cholecystectomy done and it was felt it could be contributing. This is resulting in severe dyselectrolytemia including severe hypomagnesemia, severe hypoalbuminemia and hyperalbuminemia. 2. Small liver, suggestion of cirrhosis and this could well be cryptogenic. This will need further work-up. 3. Severe hypoalbuminemia, could be from liver disease and decreased oral intake and severe diarrhea, causing severe third spacing and fluid retention. 4. Severe scrotal fluid collection from hydrocele, probably a result of severe hypoalbuminemia. 5. Highly doubt the patient to be hypothyroid as patient is rapidly losing weight and the numbers are probably more compatible with sick euthyroid syndrome. 6. Persistent diarrhea, could be underlying problem. This could be small bowel disease. Also need to rule out other causes like microscopic colitis. PLAN: At this point, the patient's electrolytes will be corrected. The patient stool will be sent off for ova and parasites and fecal leukocytes. We will consult GI with view to do endoscopy and possible biopsy. Patient also put on Lovenox for DVT prophylaxis. Care was discussed in detail with the patient. The patient will need further work-up from there. Also Dr. Briggs will be consulted.
--- NOTE | 2016-07-29 11:24 | P.CONS ---
History of Present Illness - Reason for Consult Consult date: 07/29/16 liver disease Requesting physician: Wilson Abraham - History of Present Illness 71-year-old gentleman patient Dr. Douglas with a past medical history of remote EtOH abuse that dates back to his 20s, acute diarrhea over the last several weeks; refuses colonoscopy, cholecystectomy, GERD, hypothyroidism. Consultation requested for possible liver disease. Patient presents with weakness, fatigue, scrotal and lower extremity edema. Patient has had nonbloody diarrhea for at least 6 weeks' duration with electrolyte imbalances. Still passing yellow colored watery bowel movements daily. Stool studies last month negative. C. diff negative. He has had 3 bowel movement since this morning. Scrotal ultrasound reporting bilateral hydroceles. CT chest, pelvis with contrast reported a somewhat small liver in size with surrounding perihepatic ascites, correlate for cirrhosis versus fatty infiltration. Mild intra-abdominal and pelvic ascites with moderate to severe diffuse subcutaneous soft tissue anasarca. CT chest, no evidence for pulmonary embolism. Tiny bilateral pleural effusions correlate for fluid overload state. Bilateral lower extremity Doppler DVT. Negative right leg. Left leg positive for DVT. History of intravenous drug abuse. No history of hepatitis. No history of active alcoholism or daily alcohol consumption. White count 11.1. Hemoglobin 12.3. MCV 101.9. INR 1.8. Sodium 130. Potassium 4.6. BUN 18. Creatinine 0.7. Current liver chemistries Total bilirubin 0.5. AST 120. ALT 73. Alkaline phosphates 150. Albumin 1.5. Review of Systems Constitutional: Denies fever, chills, sweats, weight gain, or loss. HEENT: Negative for migraines, blurred vision or loss, earaches, drainage, tinnitus, oral mucosal lesions, dysphagia, or odynophagia. Cardiac: Negative for chest pain, arrhythmias, or palpitation. Respiratory: Negative for shortness of breath, hemoptysis, cough, or sputum production. Gastrointestinal: See HPI for pertinent findings. Genitourinary: Negative for hematuria, urgency, frequency, polyuria, dysuria, or penile discharge. Musculoskeletal: Negative for muscle aches, swelling, arthritis, and arthralgias. Neurologic: Negative for stroke or TIA. Endocrine: History of thyroid problems. Skin: Negative for rash or itching. Psychiatric: Negative history for depression and anxiety All systems: negative (See HPI) Past Medical History Past Medical History: GERD/Reflux, Thyroid Disorder Additional Past Medical History / Comment(s): recent admission for diarrhea for >month, weight loss, abnormal electrolytes. Patient says his legs and scrotum have been progressively swelling since June. Denies history of CHF, CAD, or any other history. History of Any Multi-Drug Resistant Organisms: None Reported Past Surgical History: Cholecystectomy Additional Past Surgical History / Comment(s): rupert cataracts Past Anesthesia/Blood Transfusion Reactions: No Reported Reaction Additional Past Anesthesia/Blood Transfusion Reaction / Comm: never received any blood. Past Psychological History: No Psychological Hx Reported Additional Psychological History / Comment(s): pt is independant, says he lives alone but his step son and daughter in law help him out. Smoking Status: Former smoker Past Alcohol Use History: Occasional Additional Past Alcohol Use History / Comment(s): Pt states he used to drink more, but drinks very rarely now. Past Drug Use History: None Reported - Past Family History Father Family Medical History: CVA/TIA Mother Additional Family Medical History / Comment(s): in a mva Medications and Allergies Home Medications Medication Instructions Recorded Confirmed Type Multivit-Min/FA/Lycopene/Lut 1 tab PO DAILY 06/08/16 07/28/16 History [Centrum Silver Tablet] Omeprazole [PriLOSEC] 10 mg PO AC-BRKFST 06/15/16 07/28/16 History Magnesium Taurite 180 mg PO BID 06/18/16 07/28/16 History Allergies Allergy/AdvReac Type Severity Reaction Status Date / Time iodine Allergy Rash/Hives Verified 07/28/16 14:29 Physical Exam Vitals: Vital Signs Temp Pulse Pulse Resp BP BP Pulse Ox 07/29/16 08:00 96.2 F L 91 18 96/67 100 07/29/16 04:00 96.3 F L 89 18 88/58 98 07/29/16 00:00 96.7 F L 86 18 93/57 99 07/28/16 20:05 97.4 F L 95 18 140/59 100 07/28/16 17:50 98.6 F 106 H 16 116/77 98 07/28/16 17:17 97 F L 102 H 19 114/68 100 07/28/16 15:54 105 H 18 115/97 98 Intake and Output 0407/29/16 07/29/16 22:59 06:59 14:59 Intake Total 240 Output Total 525 425 700 Balance -643 -338 -058 Intake: Oral 240 Output: Urine 525 425 700 Other: Voiding Method Urinal Urinal # Voids 1 1 1 Weight 63.5 kg 69 kg General appearance: The patient is alert, oriented, in no acute distress. Thin appearance with diffuse anasarca, mostly in the abdomen and lower extremities. HET: Head is normocephalic and atraumatic. Pupils are equal and reactive. Oropharynx is clear without lesions. Neck: Supple without lymphadenopathy. Trachea midline. Heart: S1 S2. Regular rate and rhythm. Lungs: No crackles or wheezes are heard. Abdomen: Soft, nontender, evidence of anasarca with bowel sounds. No peritoneal signs. No palpable organomegaly or masses. Extremities: +3 pitting bilateral lower extremity edema with plus 4 scrotal edema. Neurological: No focal deficits. Strength and sensation are grossly intact. Results CBC & Chem 7: 07/29/16 07:09 07/29/16 07:09 Labs: Abnormal Lab Results - Last 24 Hours (Table) 07/28/16 07/29/16 07/29/16 Range/Units 19:25 07:09 07:09 WBC 11.3 H (3.8-10.6) k/uL RBC 3.20 L (4.30-5.90) m/uL Hgb 10.7 L (13.0-17.5) gm/dL Hct 31.7 L (39.0-53.0) % Neutrophils # 8.7 H (1.3-7.7) k/uL Sodium 130 L (137-145) mmol/L Calcium 6.9 L (8.4-10.2) mg/dL AST 120 H (17-59) U/L ALT 73 H (21-72) U/L Alkaline Phosphatase 150 H (38-126) U/L Total Protein 4.5 L (6.3-8.2) g/dL Albumin 1.3 L (3.5-5.0) g/dL TSH 4.980 H (0.465-4.680) mIU/L Free T3 pg/mL 2.5 L (2.8-5.3) pg/ml CT scan - abdomen: report reviewed CT scan - pelvis: report reviewed (Reviewed by Dr. Barragan) Assessment and Plan (1) Elevated liver enzymes Narrative/Plan: History of remote EtOH abuse with CT imaging suggestive of a small liver, possible cirrhosis with perihepatic ascites. Cannot exclude underlying fatty infiltration, possible malignancy. Status: Acute (2) Leg DVT (deep venous thromboembolism), acute Narrative/Plan: Lovenox management Status: Acute (3) Hydrocele, bilateral Status: Acute (4) Acute diarrhea Narrative/Plan: possible inflammatory microscopic collagenous colitis; stool studies last month negative patient refuses colonoscopy Status: Acute (5) Protein calorie malnutrition Narrative/Plan: Suspect moderate possible severe Status: Acute (6) Hypoalbuminemia due to protein-calorie malnutrition Status: Acute (7) Anasarca Status: Acute Plan: 1. We'll obtain full serologic workup to evaluate for chronic liver disease. 2. AFP, hepatitis panel, and CEA. Ultrasound liver in a.m to evaluate for mass. 3. Continue with Lovenox for DVT treatment. 4. Antidiarrheals as needed. Check prealbumin. Protein shakes 3 times daily with meals. Dietary consultation. 5. Consideration for echocardiogram for lower extremity edema. 6. Will follow closely with you. Advised to follow up in GI office 1 week after discharge for reevaluation. Thank you for this kind referral and the opportunity to participate in the care of your patient. This consultation was discussed with Dr. Barragan. The impression and plan of care have been directed as dictated.
[2016-07-29] MEDS: MAGNESIUM SULFATE-D5W PMX 1 GM in DEXTROSE/WATER 1 100ML.BAG IVPB SCH ×2 (11:50→15:37)
--- NOTE | 2016-07-29 12:18 | P.CRDCN ---
History of Present Illness Consult date: 07/29/16 Requesting physician: Wilson Abraham Chief complaint: Lower extremity and scrotal edema History of present illness: Is a pleasant 71-year-old gentleman with no prior documented history of hypertension, no diabetes, no hyperlipidemia, nonsmoker, who presents to the hospital with symptoms of diarrhea stools, weight loss, significant edema in his legs and scrotum. He also states that he's been losing a significant amount of weight. Patient recently underwent a lap agustín on June 18. He states that prior to his lap agustín he had significant symptoms of nausea and vomiting with associated diarrhea, he does state that he vomiting improved somewhat although he still gets occasional nausea episodes. Patient states that the peripheral and scrotal edema is new since his surgery. He states that it started in his lower legs, he began to wraps those with Larry wraps, then wrapped his upper legs as well, edema continued to worsen, even up into his scrotal area. Prior to admission here patient states that he was taking a short walk and became extremely short of breath suddenly. For all of the above reasons patient came to the emergency room for further evaluation. Also states that his heart rate seems a little fast at home and his blood pressure has been running low. EKG on admission shows normal sinus rhythm with no acute changes. Chest x-ray shows mild underlying emphysema change with tiny new bilateral pleural effusions. CTA of the chest was negative for pulmonary embolism. There is a new focal area of atelectasis and/or consolidation. New small to tiny bilateral pleural effusion. Venous duplex study positive for DVT in the left leg. Ct scan of the abdomen and pelvis was performed which revealed moderate to severe diffuse subcutaneous edema or soft tissue anasarca. Large group of fluid collection bilaterally. Only mild intra-abdominal ascites. Somewhat small hypodense liver. WBC count 11.3, hemoglobin 10.7, down from 12.3 on admission. D-dimer 5.4, potassium 3.6, BUN 16, creatinine 0.8. A medium level on admission 1.0, 1.8 this morning. AST 120, ALT 73, alk phos 150. Level 453, troponin 0.012, total protein 4.5, albumin 1.3, TSH 4.9, free T3 2 0.5. Blood pressure this morning 96/60 with a heart rate in the 90s. Past Medical History Past Medical History: GERD/Reflux, Thyroid Disorder Additional Past Medical History / Comment(s): recent admission for diarrhea for >month, weight loss, abnormal electrolytes. Patient says his legs and scrotum have been progressively swelling since June. Denies history of CHF, CAD, or any other history. History of Any Multi-Drug Resistant Organisms: None Reported Past Surgical History: Cholecystectomy Additional Past Surgical History / Comment(s): rupert cataracts Past Anesthesia/Blood Transfusion Reactions: No Reported Reaction Additional Past Anesthesia/Blood Transfusion Reaction / Comment(s): never received any blood. Past Psychological History: No Psychological Hx Reported Additional Psychological History / Comment(s): pt is independant, says he lives alone but his step son and daughter in law help him out. Smoking Status: Former smoker Past Alcohol Use History: Occasional Additional Past Alcohol Use History / Comment(s): Pt states he used to drink more, but drinks very rarely now. Past Drug Use History: None Reported - Past Family History Father Family Medical History: CVA/TIA Mother Additional Family Medical History / Comment(s): in a mva Medications and Allergies Home Medications Medication Instructions Recorded Confirmed Type Multivit-Min/FA/Lycopene/Lut 1 tab PO DAILY 06/08/16 07/28/16 History [Centrum Silver Tablet] Omeprazole [PriLOSEC] 10 mg PO AC-BRKFST 06/15/16 07/28/16 History Magnesium Taurite 180 mg PO BID 06/18/16 07/28/16 History Allergies Allergy/AdvReac Type Severity Reaction Status Date / Time iodine Allergy Rash/Hives Verified 07/28/16 14:29 Physical Exam Vitals: Vital Signs Temp Pulse Pulse Resp BP BP Pulse Ox 07/29/16 08:00 96.2 F L 91 18 96/67 100 07/29/16 04:00 96.3 F L 89 18 88/58 98 07/29/16 00:00 96.7 F L 86 18 93/57 99 07/28/16 20:05 97.4 F L 95 18 140/59 100 07/28/16 17:50 98.6 F 106 H 16 116/77 98 07/28/16 17:17 97 F L 102 H 19 114/68 100 07/28/16 15:54 105 H 18 115/97 98 Intake and Output 07/28/16 07/29/16 07/29/16 22:59 06:59 14:59 Intake Total 240 Output Total 525 425 700 Balance -669 -715 -511 Intake: Oral 240 Output: Urine 525 425 700 Other: Voiding Method Urinal Urinal # Voids 1 1 1 Weight 63.5 kg 69 kg PHYSICAL EXAMINATION: HEENT: Head is atraumatic, normocephalic. Pupils equal, round. Neck is supple. There is no elevated jugular venous pressure. HEART EXAMINATION: Heart S1, S2 normal. No murmur or gallop heard. CHEST EXAMINATION: Lungs are clear to auscultation and precussion. No chest wall tenderness is noted on palpation or with deep breathing. ABDOMEN: Soft, nontender. Bowel sounds are heard. No organomegaly noted. EXTREMITIES: 2+ peripheral pulses with 2-3+ evidence of peripheral edema and no calf tenderness noted. Positive scrotal edema. NEUROLOGIC patient is awake, alert and oriented -3. . Results 07/29/16 07:09 07/29/16 07:09 Cardiac Enzymes 07/29/16 Range/Units 07:09 AST 120 H (17-59) U/L CBC 07/29/16 Range/Units 07:09 WBC 11.3 H (3.8-10.6) k/uL RBC 3.20 L (4.30-5.90) m/uL Hgb 10.7 L (13.0-17.5) gm/dL Hct 31.7 L (39.0-53.0) % Plt Count 270 (150-450) k/uL Comprehensive Metabolic Panel 07/29/16 Range/Units 07:09 Sodium 130 L (137-145) mmol/L Potassium 3.6 (3.5-5.1) mmol/L Chloride 103 (98-107) mmol/L Carbon Dioxide 24 (22-30) mmol/L BUN 16 (9-20) mg/dL Creatinine 0.81 (0.66-1.25) mg/dL Glucose 94 (74-99) mg/dL Calcium 6.9 L (8.4-10.2) mg/dL AST 120 H (17-59) U/L ALT 73 H (21-72) U/L Alkaline Phosphatase 150 H (38-126) U/L Total Protein 4.5 L (6.3-8.2) g/dL Albumin 1.3 L (3.5-5.0) g/dL Current Medications Generic Name Dose Route Start Last Admin Trade Name Freq PRN Reason Stop Dose Admin Albuterol/Ipratropium 3 ml 07/28/16 15:54 Duoneb 0.5 Mg-3 Mg/3 Ml Soln INHALATION RT-QID PRN Shortness Of Breath Or Wheezing Enoxaparin Sodium 60 mg 07/28/16 22:00 07/29/16 08:32 Lovenox SQ 60 mg Q12HR INDIRA Administration Furosemide 40 mg 07/28/16 15:45 07/29/16 06:57 Lasix IV 40 mg BID@0600,1800 INDIRA Administration Sodium Chloride 1,000 mls @ 20 mls/hr 07/28/16 13:46 07/28/16 14:33 Saline 0.9% IV 07/29/16 13:45 20 mls/hr .Q24H STA Administration Sodium Chloride 1,000 mls @ 20 mls/hr 07/28/16 15:30 07/29/16 11:51 Saline 0.9% IV 20 mls/hr .Q24H INDIRA Administration Magnesium Sulfate/Dextrose 1 100 mls @ 100 mls/hr 07/29/16 12:00 07/29/16 11: 50 gm/ IV Solution IVPB 07/29/16 13:59 100 mls/hr Q1H INDIRA Administration Levothyroxine Sodium 75 mcg 07/29/16 06:30 07/29/16 06:57 Synthroid PO 75 mcg DAILY@0630 INDIRA Administration Loperamide HCl 2 mg 07/29/16 21:00 Imodium PO BID INDIRA Miscellaneous Information 1 each 07/28/16 15:54 Rx Info: Iv Contrast Was Given MISCELLANE 07/30/16 15:54 DAILY PRN Per Protocol Miscellaneous Information 1 each 07/28/16 16:00 Rx Info: Iv Contrast Was Given MISCELLANE 07/30/16 16:00 DAILY PRN Per Protocol Pantoprazole Sodium 40 mg 07/29/16 07:30 07/29/16 06:57 Protonix PO 40 mg AC-BRKFST INDIRA Administration Intake and Output 07/28/16 07/29/16 07/29/16 22:59 06:59 14:59 Intake Total 240 Output Total 525 425 700 Balance -525 -425 -460 Intake: Oral 240 Output: Urine 525 909 700 Other: Voiding Method Urinal Urinal # Voids 1 1 1 Weight 63.5 kg 69 kg 07/29/16 07:09 07/29/16 07:09 EKG Interpretations (text) EKG shows normal sinus rhythm with no acute changes. Assessment and Plan Plan: Assessment and plan #1 Symptoms of persistent diarrhea stools, nausea and vomiting with significant weight loss. #2 sudden onset of shortness of breath, no evidence of congestive cardiac failure. No evidence of PE by CAT scan. #3 significant bilateral leg and scrotal edema, likely secondary to low protein and hypoalbuminemia #4 hypothyroidism #5 malnutrition Plan Will obtain an echocardiogram with Doppler study. Also recommend social work consultation regarding home situation and patient's dietary habits. Further recommendations to follow. DNP note has been reviewed, I agree with a documented findings and plan of care. Patient was seen and examined.
[2016-07-29 13:00] LABS: Iron 49 ug/dL (49-181)
[2016-07-29 13:10] LABS: % Iron Saturation 46.2 % (20-50); Total Iron Binding Capacity 106 ug/dL (261-462)
--- NOTE | 2016-07-29 14:06 | P.PN ---
Progress Note - Text Patient just returned from the bathroom for his bowel movmenet. He has no new complaints at this time. He is afebrile and abdomen is soft, significant lower extremity swelling and scrotal edema noted a/p : Await test results from [facility] liver workup Patient is not interested in colonoscopy
[2016-07-29 15:05] LABS: Hepatitis B Surface Ag Index 0.06
[2016-07-29 15:11] LABS: Hepatitis B Core IgM Index 0.14
[2016-07-29 15:23] LABS: Hepatitis C Virus IgG Index 0.04
[2016-07-29 15:24] LABS: Hepatitis C Virus IgG Ab Negative (Negative)
--- NOTE | 2016-07-29 18:38 | P.PN ---
Subjective Principal diagnosis: Generalized weakness The patient is a 71-year-old gentleman admitted secondary to new onset cardiomyopathy including multiple electrolyte dyscrasias and hypothyroidism as well as elevated liver enzymes and cardiomyopathy. He still reports diarrhea. He is tolerating some diet. He reports intolerance to chicken, fish, meats as he is edentulous. Gastrointestinal team has seen the patient. His family is at bedside. No reports of fevers or chills. His intentional tremors is now resolved. He complains mostly of feeling cold. He denies any abdominal pain. Objective - Vital Signs Vital signs: Vital Signs Temp 96.8 F L 07/29/16 16:00 Pulse 81 07/29/16 16:00 Resp 18 07/29/16 16:00 BP 102/69 07/29/16 16:00 Pulse Ox 98 07/29/16 16:00 Intake & Output 07/28/16 07/29/16 07/29/16 18:59 06:59 18:59 Intake Total 480 Output Total 950 1150 Balance -950 -670 Weight 69 kg 69 kg Intake: Oral 480 Output: Urine 950 1150 Other: Voiding Method Urinal Urinal # Voids 1 1 - Exam GENERAL: Well developed and in no acute distress. Pleasant. HEENT: No sclera icterus. Extraocular movements grossly intact. Moist buccal mucosa. Head is atraumatic, normocephalic. Hears conversational speech. No nasal drainage. NECK: Supple without lymphadenopathy. No JV distention. CHEST: Non-labored respirations and equal bilateral excursions. CARDIOVASCULAR: Cardiac. Palpable 2+ radial pulses. ABDOMEN: Soft, nontender. Nondistended. MUSCULOSKELETAL: No clubbing, cyanosis. 2+ bilateral pitting edema. NEUROLOGIC: No focal or lateralizing signs. Resolved intentional tremors. Cranial nerves II through XII grossly intact. PSYCH: Appropriate affect. Alert and oriented to person, place and time. - Labs CBC & Chem 7: 07/29/16 07:09 07/29/16 07:09 Labs: Abnormal Lab Results - Last 24 Hours (Table) 07/28/16 07/29/16 07/29/16 Range/Units 19:25 07:09 07:09 WBC 11.3 H (3.8-10.6) k/uL RBC 3.20 L (4.30-5.90) m/uL Hgb 10.7 L (13.0-17.5) gm/dL Hct 31.7 L (39.0-53.0) % Neutrophils # 8.7 H (1.3-7.7) k/uL Sodium 130 L (137-145) mmol/L Calcium 6.9 L (8.4-10.2) mg/dL TIBC (261-462) ug/dL Ferritin (18-464) ng/mL AST 120 H (17-59) U/L ALT 73 H (21-72) U/L Alkaline Phosphatase 150 H (38-126) U/L Total Protein 4.5 L (6.3-8.2) g/dL Albumin 1.3 L (3.5-5.0) g/dL Prealbumin (18-36) mg/dL Carcinoembryonic Ag (0.0-5.0) ng/mL TSH 4.980 H (0.465-4.680) mIU/L Free T3 pg/mL 2.5 L (2.8-5.3) pg/ml 07/29/16 07/29/16 Range/Units 07:09 07:09 WBC (3.8-10.6) k/uL RBC (4.30-5.90) m/uL Hgb (13.0-17.5) gm/dL Hct (39.0-53.0) % Neutrophils # (1.3-7.7) k/uL Sodium (137-145) mmol/L Calcium (8.4-10.2) mg/dL TIBC 106 L (261-462) ug/dL Ferritin 971 H (18-464) ng/mL AST (17-59) U/L ALT (21-72) U/L Alkaline Phosphatase (38-126) U/L Total Protein (6.3-8.2) g/dL Albumin (3.5-5.0) g/dL Prealbumin 4 L (18-36) mg/dL Carcinoembryonic Ag 7.4 H (0.0-5.0) ng/mL TSH (0.465-4.680) mIU/L Free T3 pg/mL (2.8-5.3) pg/ml Microbiology - Last 24 Hours (Table) 07/29/16 02:00 Stool for WBCs - Final Stool Assessment and Plan (1) Marasmic kwashiorkor Status: Acute (2) Hypothyroidism Status: Chronic (3) Muscle wasting Status: Acute (4) Hyperdynamic circulation Status: Acute (5) Cardiomyopathy due metabolic or nutritional disease Status: Acute (6) Anasarca Status: Acute (7) Hypomagnesemia Status: Chronic (8) Severe protein-calorie malnutrition Status: Acute (9) Dehydration Status: Acute (10) Hypocalcemia Status: Chronic (11) Hypomagnesemia Status: Acute (12) Diarrhea Status: Chronic (13) Scrotal edema Status: Acute Plan: 1. He has had long-standing diarrhea well beyond 2 months. This has been present prior to his cholecystectomy and initial hospitalization. I did discuss with him that evaluation of the gastrointestinal tract including with a colonoscopy is necessary to evaluate for a villous adenoma which can explain his chronic diarrhea. He has been very adamant against a colonoscopy; however, after explaining to him the risk and benefits and choice of providers, he has agreed to proceed with a colonoscopy. I did discuss with him that he may have his procedures performed by the provider of his choice. 2. He has multiple electrolyte dyscrasias that are improving however he continues to be hyponatremic. 3. As for his elevated liver enzymes, he had a recent diagnostic laparoscopy with evaluation of the small intestine including the liver serosa and sample of his abdominal ascites. No evidence of macro or micronodular liver cirrhosis was identified at that time. His liver was completely unremarkable in gross appearance. 4. He has complicating nutrition where he is edentulous. Recommend a high protein mechanical diet to help with his hypoalbuminemia. 5. He has completed an echo of his heart for which the results are pending. Once he is hemodynamically stable, we'll proceed with upper and lower endoscopy as he reports reflux disease and intermittent dysphagia. Benefits and risks of the procedure were reviewed. 6. As he has chronic diarrhea, a colonoscopy prep may be deferred. Tentative timeframe for upper and lower endoscopy is for this Wednesday.
--- NOTE | 2016-07-29 18:44 | PN ---
DATE OF SERVICE: 07/29/2016 PRESENTING COMPLAINT: Weak, tired, diarrhea. INTERVAL HISTORY: This is a patient who presented with chronic diarrhea, weight loss, severe hypoalbuminemia; had a recent cholecystectomy. Workup is in place. There is a suspicion for chronic liver disease/cirrhosis, too. Two-D echo is pending. Lying in bed, tired. Review of systems done for constitutional, cardiovascular, GI, pulmonary; relevant findings as above. Current medications are reviewed that include IV Lasix. On examination, temperature 96.8, pulse 80, respiration 18, blood pressure 102/69, pulse ox 98% on room air. GENERAL APPEARANCE: Lying in bed, tired-appearing. EYES: Pupils equal. Conjunctivae pale. NECK: JVD not raised. Mass not palpable. RESPIRATORY: Effort normal. LUNGS: Decreased breath sounds. CARDIOVASCULAR: First and second sounds present. Edema is present. ABDOMEN: Distended, soft. Liver and spleen not palpable. PSYCHIATRY: Alert and oriented x3. Mood and affect normal. INVESTIGATIONS: White count 11.3, hemoglobin 10.7. Potassium 3.6. TIBC 106, ferritin 971. AST 120. Albumin 1.3. CEA 7.4. Hepatitis screen is negative. ASSESSMENT: 1. This is a patient with acute on chronic diarrhea that persisted for a good 6 weeks. Also had cholecystectomy in the interim. Causing severe dyselectrolytemia. 2. Suspicion for chronic liver disease. Cirrhosis needs to be ruled out; could well be cryptogenic. 3. Severe hypoalbuminemia; could be from chronic liver disease and severe diarrhea causing third spacing and fluid retention. 4. Severe scrotal fluid collection from hydrocele, probably result of severe hypoalbuminemia. 5. Abnormal TSH; patient being treated with Synthroid. Well could be sick euthyroid, as patient has been rapidly losing weight. 6. Persistent diarrhea. That could be the main problem. This could well be small bowel disease. Patient may need both a small and a large bowel biopsy. PLAN: Patient's 2-D echocardiogram is pending. So is ( ) ultrasound. Will talk to Dr. Barragan about colonoscopy and possible biopsy and go from there. Care was discussed with the patient.
[2016-07-29 20:46] LABS: ANA w/Reflex to Titer NEGATIVE (NEGATIVE)
[2016-07-29] MEDS ORDERED: LOPERAMIDE 2 MG CAP PO SCH (21:00)
[2016-07-30] MEDS: FUROSEMIDE 10 MG/ML 4 ML VIAL IV SCH ×2 (05:56→17:18)
[2016-07-30 07:22] LABS: Basophils % (A) 0 %; CH 34.4; CHCM 35.4; Eosinophils % (A) 0 %; HCT 36.1 % (39.0-53.0); HDW 3.17; HGB 12.3 gm/dL (13.0-17.5); Luc # (Auto) 0.18; Luc % (Auto) 2; Lymphocytes # (A) 2.6 k/uL (1.0-4.8); Lymphocytes % (A) 22 %; MCH 33.4 pg (25.0-35.0); MCHC 34.1 g/dL (31.0-37.0); MCV 97.8 fL (80.0-100.0); Mean Platelet Volume 8.4; Monocytes # (A) 0.7 k/uL (0-1.0); Monocytes % (A) 6 %; Neutrophils # (A) 8.3 k/uL (1.3-7.7); Neutrophils % (A) 71 %; RBC 3.69 m/uL (4.30-5.90); RDW 14.9 % (11.5-15.5); WBC 11.8 k/uL (3.8-10.6); WBC (Perox) 12.07
[2016-07-30 07:40] LABS: ALT 81 U/L (21-72); AST 159 U/L (17-59); Alkaline Phosphatase 185 U/L (38-126); Anion Gap 5 mmol/L; Blood Urea Nitrogen 14 mg/dL (9-20); Calcium 6.8 mg/dL (8.4-10.2); Carbon Dioxide 27 mmol/L (22-30); Chloride 97 mmol/L (98-107); Glucose 88 mg/dL (74-99); Magnesium 1.7 mg/dL (1.6-2.3); Non-African American GFR(MDRD) >60 (>60 ml/min/1.73 sqM); Sodium 129 mmol/L (137-145); Total Bilirubin 0.7 mg/dL (0.2-1.3); Total Protein 5.1 g/dL (6.3-8.2)
[2016-07-30] MEDS ORDERED: POTASSIUM CHLORIDE ER 20 MEQ TAB.ER PO STA (08:07)
--- NOTE | 2016-07-30 08:53 | P.PN ---
Subjective Principal diagnosis: Diarrhea possible liver disease 71-year-old male reevaluated today in regards to diarrhea in possible underlying chronic liver disease. Still reports frequent nonbloody diarrhea. Does not like his protein shake supplement. Denies abdominal pain. Ultrasound abdomen pending. AFP less than 1.3. CEA 7.4. Potassium 3.0. Reports dissatisfaction with frequent urination from Lasix. Hepatitis panel negative. Objective - Vital Signs Vital signs: Vital Signs Temp 97 F L 07/30/16 07:30 Pulse 90 07/30/16 07:30 Resp 18 07/30/16 07:30 BP 90/66 07/30/16 07:30 Pulse Ox 99 07/30/16 07:30 Intake & Output 07/29/16 07/30/16 07/30/16 18:59 06:59 18:59 Intake Total 480 Output Total 1150 1500 675 Balance -670 -1500 -675 Weight 69 kg 70 kg Intake: Oral 480 Output: Urine 1150 1500 675 Other: Voiding Method Urinal Urinal # Voids 1 1 - Exam General appearance: The patient is alert, oriented, in no acute distress. Thin appearance with diffuse anasarca, mostly in the abdomen and lower extremities. HET: Head is normocephalic and atraumatic. Pupils are equal and reactive. Oropharynx is clear without lesions. Neck: Supple without lymphadenopathy. Trachea midline. Heart: S1 S2. Regular rate and rhythm. Lungs: No crackles or wheezes are heard. Abdomen: Soft, nontender, evidence of anasarca with bowel sounds. No peritoneal signs. No palpable organomegaly or masses. Extremities: +3 pitting bilateral lower extremity edema with plus 4 scrotal edema. Neurological: No focal deficits. Strength and sensation are grossly intact. - Labs CBC & Chem 7: 07/30/16 07:06 07/30/16 07:06 Labs: Abnormal Lab Results - Last 24 Hours (Table) 07/29/16 07/29/16 07/29/16 Range/Units 07:09 07:09 07:09 WBC (3.8-10.6) k/uL RBC (4.30-5.90) m/uL Hgb (13.0-17.5) gm/dL Hct (39.0-53.0) % Neutrophils # (1.3-7.7) k/uL Sodium (137-145) mmol/L Potassium (3.5-5.1) mmol/L Chloride (98-107) mmol/L Calcium (8.4-10.2) mg/dL TIBC 106 L (261-462) ug/dL Ferritin 971 H (18-464) ng/mL AST (17-59) U/L ALT (21-72) U/L Alkaline Phosphatase (38-126) U/L Total Protein (6.3-8.2) g/dL Total Protein (PEP) 4.4 L (6.2-8.2) g/dL Albumin (3.5-5.0) g/dL Prealbumin 4 L (18-36) mg/dL Carcinoembryonic Ag 7.4 H (0.0-5.0) ng/mL 07/30/16 07/30/16 Range/Units 07:06 07:06 WBC 11.8 H (3.8-10.6) k/uL RBC 3.69 L (4.30-5.90) m/uL Hgb 12.3 L (13.0-17.5) gm/dL Hct 36.1 L (39.0-53.0) % Neutrophils # 8.3 H (1.3-7.7) k/uL Sodium 129 L (137-145) mmol/L Potassium 3.0 L* (3.5-5.1) mmol/L Chloride 97 L (98-107) mmol/L Calcium 6.8 L (8.4-10.2) mg/dL TIBC (261-462) ug/dL Ferritin (18-464) ng/mL AST 159 H (17-59) U/L ALT 81 H (21-72) U/L Alkaline Phosphatase 185 H (38-126) U/L Total Protein 5.1 L (6.3-8.2) g/dL Total Protein (PEP) (6.2-8.2) g/dL Albumin 1.5 L (3.5-5.0) g/dL Prealbumin (18-36) mg/dL Carcinoembryonic Ag (0.0-5.0) ng/mL Microbiology - Last 24 Hours (Table) 07/29/16 02:00 Stool for WBCs - Final Stool Assessment and Plan (1) Elevated liver enzymes Status: Acute (2) Leg DVT (deep venous thromboembolism), acute Status: Acute (3) Hydrocele, bilateral Status: Acute (4) Acute diarrhea Status: Acute (5) Protein calorie malnutrition Status: Acute (6) Hypoalbuminemia due to protein-calorie malnutrition Status: Acute (7) Anasarca Status: Acute Plan: 1. We will adjust loperamide 4 mg 3 times a day. Patient is requesting suspension however not available as a formulary option. 2. Continue with protein shake supplementation will consult dietitian to request a different supplement. 3. Chemistries for evaluation of chronic liver disease are still pending. We' ll continue to follow with you. Assessment and plan a care discussed with Dr. Barragan
[2016-07-30] MEDS: POTASSIUM CHLORIDE 10 MEQ, LIDOCAINE 2% INJ 10 MG in SODIUM CHLORIDE 0.9% 100 ML IVPB SCH ×3 (09:16→12:14)
[2016-07-30] MEDS: PANTOPRAZOLE 40 MG TABLET PO SCH (09:17)
[2016-07-30] MEDS: LOPERAMIDE 2 MG CAP PO SCH ×2 (09:17→17:19)
[2016-07-30] MEDS: LEVOTHYROXINE 75 MCG TAB PO SCH (09:18)
[2016-07-30] MEDS: ENOXAPARIN 60 MG/0.6 ML SYRINGE SQ SCH (09:18)
--- NOTE | 2016-07-30 10:16 | ECHOF ---
Referral Reason:sob MEASUREMENTS -------- HEIGHT: 175.3 cm WEIGHT: 68.9 kg BP: 96/47 RVIDd: 2.9 cm (< 3.3) IVSd: 1.0 cm (0.6 - 1.1) LVIDd: 3.5 cm (3.9 - 5.3) LVPWd: 0.8 cm (0.6 - 1.1) IVSs: 1.1 cm LVIDs: 2.7 cm LVPWs: 1.0 cm LA Diam: 3.4 cm (2.7 - 3.8) Ao Diam: 3.4 cm (2.0 - 3.7) AV Cusp: 1.4 cm (1.5 - 2.6) LA Diam: 3.6 cm (2.7 - 3.8) MV EXCURSION: 24.295 mm (> 18.000) MV EF SLOPE: 59 mm/s (70 - 150) EPSS: 0.7 cm RAP: 5.00 mmHg RVSP: 35.63 mmHg FINDINGS -------- Sinus rhythm. This was a technically adequate study. There is borderline concentric left ventricular hypertrophy. Overall left ventricular systolic function is normal with, an EF between 55 - 60 %. The right ventricle is normal in size. The left atrial size is normal. The right atrial size is normal. 1.5MG OF DEFINITY UTLIZED: 2 OR MORE WALL SEGMENTS NOT VISUALIZED. There is mild aortic valve sclerosis. There is no evidence of aortic regurgitation. Mild mitral annular calcification present. Mild mitral regurgitation is present. Mild tricuspid regurgitation present. There is no evidence of pulmonary hypertension. The right ventricular systolic pressure, as measured by Doppler, is 35.63mmHg. There is no pulmonic regurgitation present. The aortic root size is normal. There is no pericardial effusion. CONCLUSIONS -------- 1. There is borderline concentric left ventricular hypertrophy. 2. Overall left ventricular systolic function is normal with, an EF between 55 - 60 %. 3. 1.5MG OF DEFINITY UTLIZED: 2 OR MORE WALL SEGMENTS NOT VISUALIZED. 4. There is mild aortic valve sclerosis. 5. Mild mitral annular calcification present. 6. Mild mitral regurgitation is present. 7. Mild tricuspid regurgitation present. 8. There is no evidence of pulmonary hypertension. 9. The right ventricular systolic pressure, as measured by Doppler, is 35.63mmHg. LICENSED INSURANCE AGENT: Mary Rene RDCS
--- NOTE | 2016-07-30 11:27 | US ---
EXAMINATION TYPE: US abdomen limited DATE OF EXAM: 07/30/2016 8:17 AM COMPARISON: NONE CLINICAL HISTORY: evaluate for hepatic mass. EXAM MEASUREMENTS: Liver Length: 11.3 cm Gallbladder Wall: Surgically absent CBD: 0.6 cm Right Kidney: 10.1 x 4.0 x 5.5 cm Extensive overlying peristalsing midline bowel gas making exam technically difficult. Pancreas: Obscured by bowel gas Liver: appears small Gallbladder: Surgically absent Evidence for sonographic Stone's sign: no CBD: not well visualized due to overlying bowel gas Right Kidney: wnl Small amount of ascites IMPRESSION: 1. Ascites 2. Some limitation due to bowel gas. 3. Normal postcholecystectomy right upper quadrant ultrasound as visualized.
[2016-07-30 11:33] LABS: Vitamin D, 1, 25-Dihydroxy 42 pg/mL (20 - 79)
[2016-07-30] MEDS: SODIUM CHLORIDE 0.9% 1,000 ML IV SCH (17:20)
--- NOTE | 2016-07-30 17:55 | P.CNEND ---
History of Present Illness Consult date: 07/30/16 History of present illness: Patient is 71-year-old male who was admitted with diarrhea, abnormal liver function tests and generalized edema. Patient has history of primary hypothyroidism which was recently diagnosed 2 months ago. Patient was taking levothyroxine 50 g at home for last 8 weeks. During hospitalization he was found to have abnormal thyroid function tests and his dose has been increased to 75 g. Patient also has history of multiple electrolyte imbalances including hyponatremia and hypomagnesemia. Patient has history of hypotension for past few months. No known history of adrenal insufficiency. Review of Systems Constitutional: Denies chills, Denies fever Eyes: denies blurred vision, denies pain Ears, nose, mouth and throat: Denies headache, Denies sore throat Cardiovascular: Denies chest pain, Denies shortness of breath Respiratory: Denies cough Gastrointestinal: Reports diarrhea Genitourinary: Reports as per HPI Musculoskeletal: Reports as per HPI Integumentary: Reports as per HPI Neurological: Reports as per HPI Endocrine: Reports cold intolerance, Reports fatigue Hematologic/Lymphatic: Reports as per HPI Allergic/Immunologic: Reports as per HPI Past Medical History Past Medical History: GERD/Reflux, Thyroid Disorder Additional Past Medical History / Comment(s): recent admission for diarrhea for >month, weight loss, abnormal electrolytes. Patient says his legs and scrotum have been progressively swelling since June. Denies history of CHF, CAD, or any other history. History of Any Multi-Drug Resistant Organisms: None Reported Past Surgical History: Cholecystectomy Additional Past Surgical History / Comment(s): rupert cataracts Past Anesthesia/Blood Transfusion Reactions: No Reported Reaction Additional Past Anesthesia/Blood Transfusion Reaction / Comment(s): never received any blood. Past Psychological History: No Psychological Hx Reported Additional Psychological History / Comment(s): pt is independant, says he lives alone but his step son and daughter in law help him out. Smoking Status: Former smoker Past Alcohol Use History: Occasional Additional Past Alcohol Use History / Comment(s): Pt states he used to drink more, but drinks very rarely now. Past Drug Use History: None Reported - Past Family History Father Family Medical History: CVA/TIA Mother Additional Family Medical History / Comment(s): in a mva Medications and Allergies Home Medications Medication Instructions Recorded Confirmed Type Multivit-Min/FA/Lycopene/Lut 1 tab PO DAILY 06/08/16 07/28/16 History [Centrum Silver Tablet] Omeprazole [PriLOSEC] 10 mg PO AC-[id number] 06/15/16 07/28/16 History Magnesium Taurite 180 mg PO BID 06/18/16 07/28/16 History Allergies Allergy/AdvReac Type Severity Reaction Status Date / Time iodine Allergy Rash/Hives Verified 07/28/16 14:29 Physical Exam Vitals: Vital Signs Temp Pulse Resp BP Pulse Ox 07/30/16 14:30 97 F L 84 18 92/57 98 07/30/16 08:00 15 07/30/16 07:30 97 F L 90 18 90/66 99 07/30/16 00:25 97.4 F L 89 16 88/58 100 07/29/16 21:05 97.1 F L 98 16 138/78 97 07/29/16 19:55 96.7 F L 90 18 114/73 99 Intake and Output 07/30/16 07/30/16 07/30/16 06:59 14:59 22:59 Output Total 1500 1350 300 Balance -1500 -1350 -300 Output: Urine 1500 1350 300 Other: # Voids 1 1 Weight 70 kg 70 kg Patient Weight 07/31/16 06:59 Weight 70 kg - Constitutional General appearance: no acute distress - EENT Eyes: EOMI - Neck Neck: no lymphadenopathy - Respiratory Respiratory: bilateral: CTA - Cardiovascular Heart sounds: normal: S1, S2 - Gastrointestinal General gastrointestinal: no organomegaly, soft, no tenderness - Neurologic Neurologic: CNII-XII intact - Psychiatric Psychiatric: A&O x's 3, appropriate affect, intact judgment & insight Results - Labs Result Diagrams: 07/30/16 07:06 07/30/16 07:06 Abnormal Lab Results - Last 24 Hours (Table) 07/29/16 07/29/16 07/29/16 Range/Units 07:09 07:09 07:09 WBC (3.8-10.6) k/uL RBC (4.30-5.90) m/uL Hgb (13.0-17.5) gm/dL Hct (39.0-53.0) % Neutrophils # (1.3-7.7) k/uL Sodium (137-145) mmol/L Potassium (3.5-5.1) mmol/L Chloride (98-107) mmol/L Calcium (8.4-10.2) mg/dL AST (17-59) U/L ALT (21-72) U/L Alkaline Phosphatase (38-126) U/L Total Protein (6.3-8.2) g/dL Total Protein (PEP) 4.4 L (6.2-8.2) g/dL Albumin (3.5-5.0) g/dL Ceruloplasmin (20.0-60.0) mg/dL Copper 292 L (665-1480) ug/L Zinc 34 L (60-130) ug/dL Anti-Smooth Muscle Ab 20 H (<20) UNITS 07/29/16 07/30/16 07/30/16 Range/Units 07:09 07:06 07:06 WBC 11.8 H (3.8-10.6) k/uL RBC 3.69 L (4.30-5.90) m/uL Hgb 12.3 L (13.0-17.5) gm/dL Hct 36.1 L (39.0-53.0) % Neutrophils # 8.3 H (1.3-7.7) k/uL Sodium 129 L (137-145) mmol/L Potassium 3.0 L* (3.5-5.1) mmol/L Chloride 97 L (98-107) mmol/L Calcium 6.8 L (8.4-10.2) mg/dL AST 159 H (17-59) U/L ALT 81 H (21-72) U/L Alkaline Phosphatase 185 H (38-126) U/L Total Protein 5.1 L (6.3-8.2) g/dL Total Protein (PEP) (6.2-8.2) g/dL Albumin 1.5 L (3.5-5.0) g/dL Ceruloplasmin 8.4 L (20.0-60.0) mg/dL Copper (665-1480) ug/L Zinc (60-130) ug/dL Anti-Smooth Muscle Ab (<20) UNITS Microbiology - Last 24 Hours (Table) 07/29/16 02:00 Stool for WBCs - Final Stool Diabetes panel 07/30/16 Range/Units 07:06 Sodium 129 L (137-145) mmol/L Potassium 3.0 L* (3.5-5.1) mmol/L Chloride 97 L (98-107) mmol/L Carbon Dioxide 27 (22-30) mmol/L BUN 14 (9-20) mg/dL Creatinine 0.80 (0.66-1.25) mg/dL Glucose 88 (74-99) mg/dL Calcium 6.8 L (8.4-10.2) mg/dL AST 159 H (17-59) U/L ALT 81 H (21-72) U/L Alkaline Phosphatase 185 H (38-126) U/L Total Protein 5.1 L (6.3-8.2) g/dL Albumin 1.5 L (3.5-5.0) g/dL Calcium panel 07/30/16 Range/Units 07:06 Calcium 6.8 L (8.4-10.2) mg/dL Albumin 1.5 L (3.5-5.0) g/dL Pituitary panel 07/30/16 Range/Units 07:06 Sodium 129 L (137-145) mmol/L Potassium 3.0 L* (3.5-5.1) mmol/L Chloride 97 L (98-107) mmol/L Carbon Dioxide 27 (22-30) mmol/L BUN 14 (9-20) mg/dL Creatinine 0.80 (0.66-1.25) mg/dL Glucose 88 (74-99) mg/dL Calcium 6.8 L (8.4-10.2) mg/dL Adrenal panel 07/30/16 Range/Units 07:06 Sodium 129 L (137-145) mmol/L Potassium 3.0 L* (3.5-5.1) mmol/L Chloride 97 L (98-107) mmol/L Carbon Dioxide 27 (22-30) mmol/L BUN 14 (9-20) mg/dL Creatinine 0.80 (0.66-1.25) mg/dL Glucose 88 (74-99) mg/dL Calcium 6.8 L (8.4-10.2) mg/dL Total Bilirubin 0.7 (0.2-1.3) mg/dL AST 159 H (17-59) U/L ALT 81 H (21-72) U/L Alkaline Phosphatase 185 H (38-126) U/L Total Protein 5.1 L (6.3-8.2) g/dL Albumin 1.5 L (3.5-5.0) g/dL Assessment and Plan (1) Primary hypothyroidism Status: Acute (2) Hyponatremia Status: Acute (3) Hypotension Status: Acute Plan: Primary hypothyroidism. Patient has slightly high TSH of 4.9 with low T3. Patient's dose has already been increased from 50 g 75 g during this hospitalization. Recommend no further increase in levothyroxine. Patient may continue 50 g upon discharge. Recommend repeating thyroid function tests in 6 weeks after discharge and adjusting the dose accordingly. Patient is generalized edema and hyponatremia is less likely to be associated with hypothyroidism Patient has history of recurrent hypotension at home which is multi factorial Check serum cortisol to rule out adrenal sufficiency Thank you for letting me participate in this patient's care. I will follow patient's lab results
--- NOTE | 2016-07-30 18:44 | P.PN ---
Subjective Principal diagnosis: Generalized weakness The patient is a 71-year-old gentleman admitted secondary to new onset cardiomyopathy including multiple electrolyte dyscrasias and hypothyroidism as well as elevated liver enzymes and cardiomyopathy. He still has diarrhea this evening despite medications. Stool studies are completely negative. Reports intolerance to his protein shakes including meals. He still reports weakness. He has been seen by the mill platform supervisor this evening. Objective - Vital Signs Vital signs: Vital Signs Temp 97 F L 07/30/16 14:30 Pulse 84 07/30/16 14:30 Resp 18 07/30/16 14:30 BP 92/57 07/30/16 14:30 Pulse Ox 98 07/30/16 14:30 Intake & Output 07/29/16 07/30/16 07/30/16 18:59 06:59 18:59 Intake Total 480 580 Output Total 1150 1500 1950 Balance -670 -1500 -1370 Weight 69 kg 70 kg 70 kg Intake: Oral 480 580 Output: Urine 1150 1500 1950 Other: Voiding Method Urinal Urinal # Voids 1 1 - Exam GENERAL: Well developed and in no acute distress. Pleasant. HEENT: No sclera icterus. Extraocular movements grossly intact. Moist buccal mucosa. Head is atraumatic, normocephalic. Hears conversational speech. No nasal drainage. NECK: Supple without lymphadenopathy. No JV distention. CHEST: Non-labored respirations and equal bilateral excursions. CARDIOVASCULAR: Cardiac. Palpable 2+ radial pulses. ABDOMEN: Soft, nontender. Nondistended. MUSCULOSKELETAL: No clubbing, cyanosis. 2+ bilateral pitting edema. NEUROLOGIC: No focal or lateralizing signs. Resolved intentional tremors. Cranial nerves II through XII grossly intact. PSYCH: Appropriate affect. Alert and oriented to person, place and time. - Labs CBC & Chem 7: 07/30/16 07:06 07/30/16 07:06 Labs: Abnormal Lab Results - Last 24 Hours (Table) 07/29/16 07/29/16 07/29/16 Range/Units 07:09 07:09 07:09 WBC (3.8-10.6) k/uL RBC (4.30-5.90) m/uL Hgb (13.0-17.5) gm/dL Hct (39.0-53.0) % Neutrophils # (1.3-7.7) k/uL Sodium (137-145) mmol/L Potassium (3.5-5.1) mmol/L Chloride (98-107) mmol/L Calcium (8.4-10.2) mg/dL AST (17-59) U/L ALT (21-72) U/L Alkaline Phosphatase (38-126) U/L Total Protein (6.3-8.2) g/dL Total Protein (PEP) 4.4 L (6.2-8.2) g/dL Albumin (3.5-5.0) g/dL Ceruloplasmin (20.0-60.0) mg/dL Copper 292 L (665-1480) ug/L Zinc 34 L (60-130) ug/dL Anti-Smooth Muscle Ab 20 H (<20) UNITS 07/29/16 07/30/16 07/30/16 Range/Units 07:09 07:06 07:06 WBC 11.8 H (3.8-10.6) k/uL RBC 3.69 L (4.30-5.90) m/uL Hgb 12.3 L (13.0-17.5) gm/dL Hct 36.1 L (39.0-53.0) % Neutrophils # 8.3 H (1.3-7.7) k/uL Sodium 129 L (137-145) mmol/L Potassium 3.0 L* (3.5-5.1) mmol/L Chloride 97 L (98-107) mmol/L Calcium 6.8 L (8.4-10.2) mg/dL AST 159 H (17-59) U/L ALT 81 H (21-72) U/L Alkaline Phosphatase 185 H (38-126) U/L Total Protein 5.1 L (6.3-8.2) g/dL Total Protein (PEP) (6.2-8.2) g/dL Albumin 1.5 L (3.5-5.0) g/dL Ceruloplasmin 8.4 L (20.0-60.0) mg/dL Copper (665-1480) ug/L Zinc (60-130) ug/dL Anti-Smooth Muscle Ab (<20) UNITS - Imaging and Cardiology CT scan - abdomen: report reviewed, image reviewed CT scan - chest: report reviewed, image reviewed CT scan - pelvis: report reviewed, image reviewed US - abdomen: report reviewed, image reviewed Echo reviewed Assessment and Plan (1) Marasmic kwashiorkor Status: Acute (2) Hypothyroidism Status: Chronic (3) Muscle wasting Status: Acute (4) Hyperdynamic circulation Status: Acute (5) Cardiomyopathy due metabolic or nutritional disease Status: Acute (6) Anasarca Status: Acute (7) Hypomagnesemia Status: Chronic (8) Severe protein-calorie malnutrition Status: Acute (9) Dehydration Status: Acute (10) Hypocalcemia Status: Chronic (11) Hypomagnesemia Status: Acute (12) Diarrhea Status: Chronic (13) Scrotal edema Status: Acute Plan: 1. I had the opportunity to discuss with the GI team his plan of care. Liver studies are negative for gross cirrhosis. 2. Will proceed with upper and lower endoscopy including multiple biopsies however his Lovenox is held as he is high risk of bleeding. 3. No bowel prep as the patient has chronic diarrhea which will exacerbate his electrolyte abnormalities. 4. We'll continue to follow him closely with pending results of his pathology and biopsy.
[2016-07-31] MEDS: FUROSEMIDE 10 MG/ML 4 ML VIAL IV SCH ×2 (06:14→19:51)
[2016-07-31 09:27] LABS: Basophils % (A) 0 %; CH 33.9; CHCM 34.3; Eosinophils # (A) 0.1 k/uL (0-0.7); Eosinophils % (A) 1 %; HCT 32.2 % (39.0-53.0); HGB 10.8 gm/dL (13.0-17.5); Luc # (Auto) 0.17; Luc % (Auto) 2; Lymphocytes # (A) 2.1 k/uL (1.0-4.8); Lymphocytes % (A) 21 %; MCH 33.5 pg (25.0-35.0); MCHC 33.5 g/dL (31.0-37.0); MCV 99.9 fL (80.0-100.0); Macrocytosis Slight; Mean Platelet Volume 10.6; Monocytes # (A) 0.8 k/uL (0-1.0); Monocytes % (A) 8 %; Neutrophils # (A) 6.6 k/uL (1.3-7.7); Neutrophils % (A) 68 %; RBC 3.22 m/uL (4.30-5.90); RDW 15.1 % (11.5-15.5); WBC 9.7 k/uL (3.8-10.6); WBC (Perox) 9.71
--- NOTE | 2016-07-31 09:33 | PN ---
DATE OF SERVICE: 07/30/2016 PRESENTING COMPLAINT: Weak and tired. INTERVAL HISTORY: This is a patient with chronic diarrhea, weight loss, severe hypoalbuminemia. Had a recent cholecystectomy. The patient did have an ultrasound, the liver was not well visualized. A 2-D echo shows preserved LV function. Lying in bed. REVIEW OF SYSTEMS: Done for constitutional, cardiovascular, GI, pulmonary; relevant findings as above. Current medications are reviewed and include IV Lasix. On examination, temperature 97, pulse 84, respirations 18, blood pressure 92/37, pulse ox 98%. GENERAL APPEARANCE: Lying in bed, awake, tired. EYES: Pupils equal. Conjunctivae pale. NECK: JVD is not raised. Mass not palpable. RESPIRATORY: Effort increased. LUNGS: Decreased breath sounds. CARDIOVASCULAR: First and second sounds normal. Edema is still present. ABDOMEN: Distended, soft. Liver and spleen not palpable. PSYCHIATRY: Alert and but wouldn't affect normal. INVESTIGATIONS: Two-D echo showed preserved LV function. Liver ultrasound done, liver not well visualized. White count 11.8, hemoglobin 12.3, potassium 3, BUN 14, creatinine 0.80. AST 159, ALT 81, albumin 1.5. Hepatitis screen is negative. Hepatitis screen is negative. Copper level is low, zinc level is low. ASSESSMENT: 1. Acute on chronic diarrhea that has been present for over 2 or 3 months. In the interim patient has had a cholecystectomy. The patient most likely has some primarily GI cause. Could be small bowel etiology or even large bowel etiology, which could be microscopic cholecystitis or other differential present. Work-up is in place. Given that the patient's 2-D echo is normal, fluid overload is all from severe hypoalbuminemia. 2. Chronic liver disease still is in the differential as it could not be well seen on the ultrasound. 3. Severe hypoalbuminemia from chronic liver disease or from severe diarrhea causing third spacing and fluid retention. 4. Severe scrotal fluid collection/hydrocele, probably result of severe hypoalbuminemia. 5. Hypothyroidism. The patient was seen by Dr. Greer from endocrinology. 6. Multiple electrolyte abnormalities including low zinc, low copper. PLAN: Care was discussed at length with the patient. Patient definitely needs biopsy of the colon and also possibly lead to further work-up including biopsy of the small bowel. Care was discussed at length. The patient had a lot of concerns and these were allayed. I told her it is important that is why patient is getting a GI workup, because we took care of the bottom of the cause. In the meantime, the patient's stool has been negative for ova and parasites, also negative for C. difficile. Total time spent today was about 35 to 40 minutes including 20 to 25 minutes of discussion.
[2016-07-31] MEDS ORDERED: Magnesium Replacement Protocol 1 EACH MISC MISCELLANE PRN (09:44)
[2016-07-31 09:49] LABS: Anion Gap 3 mmol/L; Blood Urea Nitrogen 13 mg/dL (9-20); Carbon Dioxide 27 mmol/L (22-30); Chloride 100 mmol/L (98-107); Glucose 77 mg/dL (74-99); Non-African American GFR(MDRD) >60 (>60 ml/min/1.73 sqM); Potassium 3.6 mmol/L (3.5-5.1); Sodium 130 mmol/L (137-145)
[2016-07-31 09:55] LABS: Calcium 6.6 mg/dL (8.4-10.2)
[2016-07-31] MEDS: MAGNESIUM SULFATE-D5W PMX 1 GM in DEXTROSE/WATER 1 100ML.BAG IVPB SCH ×3 (10:18→13:13)
[2016-07-31] MEDS: PANTOPRAZOLE 40 MG TABLET PO SCH (10:20)
[2016-07-31] MEDS: LEVOTHYROXINE 75 MCG TAB PO SCH (10:20)
[2016-07-31] MEDS ORDERED: IV FLUID CONTINUATION 800 ML IV ONE (10:39)
[2016-07-31] MEDS ORDERED: LIDOCAINE 1% INJ 10MG/ML (20 ML MDV) ONE (10:46)
[2016-07-31] MEDS ORDERED: PROPOFOL 10 MG/ML 20 ML VIAL IV ONE (10:46)
--- NOTE | 2016-07-31 11:26 | P.PCN ---
Date of Procedure: 07/31/16 Description of Procedure: PREOPERATIVE DIAGNOSIS: Gastroesophageal reflux disease. Dysphagia. POSTOPERATIVE DIAGNOSIS: Gastroesophageal reflux disease. Dysphagia. Diaphragmatic hiatal hernia without obstruction, type I. OPERATION: Esophagogastroduodenoscopy with biopsies along antrum, distal esophagus, duodenum. SURGEON: Vianney Mejia MD ANESTHESIA: MAC. INDICATIONS: The patient is a 71-year-old male who presents with a history of reflux disease and dysphagia. Benefits and risks of the procedure were described. Informed consent was obtained. DESCRIPTION: The patient was brought into the endoscopy suite and laid in the left lateral decubitus position. An Olympus gastroscope was passed along the posterior oropharynx down to the distal esophagus where the squamocolumnar junction was encountered at 36 cm from the incisors. The stomach was entered and bile reflux was found. Additional findings are listed below. Biopsies with cold forceps were obtained of the antrum, duodenum, and esophagus. The first through third portion of the duodenum was examined remarkable for early duodenitis. Retroflexion of the scope confirmed Hill grade 4 lower esophageal valve. The squamocolumnar junction demostrated chronic LA grade B erosive esophagitis. The stomach was desufflated. The patient tolerated the procedure well. FINDINGS: Squamocolumnar junction 36 cm from the incisors. Diaphragmatic hiatus at 40 cm. Hiatal hernia 4 cm, type I and fixed. Hill grade 4 lower esophageal valve. LA grade B erosive esophagitis. Mild duodenitis. Gastritis with gastric polyps, few. RECOMMENDATIONS: Continue medical therapy. Further recommendations pending results of pathology report. Upper endoscopy as needed.
--- NOTE | 2016-07-31 11:33 | P.PCN ---
Date of Procedure: 07/31/16 Description of Procedure: PREOPERATIVE DIAGNOSIS: Chronic diarrhea. Anasarca. Severe protein malnutrition. POSTOPERATIVE DIAGNOSIS: Chronic diarrhea. Anasarca. Severe protein malnutrition. OPERATION: Colonoscopy to the ileocecal valve and appendiceal orifice. Colonoscopy with random biopsies throughout the entire colon. SURGEON: Vianney Mejia MD. ANESTHESIA: MAC. INDICATIONS: The patient is a 71-year-old male who presents with chronic diarrhea over 3 months. He reports weight loss. He's not had a previous colonoscopy screening. Benefits and risks were described and informed consent was obtained. DESCRIPTION OF PROCEDURE: The patient had undergone Gatorade, MiraLAX and Dulcolax prep. He had been brought into the operating room and laid in the left lateral decubitus position. After adequate intravenous sedation, the rectum was examined with 2% lidocaine jelly. External hemorrhoids, grade 2 were encountered without bleeding. The prostate was smooth and without nodularity. The rectal tone was within normal limits. No lesions were palpated in the rectal vault. An Olympus colonoscope was advanced until the ileocecal valve and appendiceal orifice were clearly viewed. The ileocecal valve was identified and intubated along its orifice. No inflammation was identified along the base of the cecum, ileocecal valve and ascending colon. The mucosa was somewhat boggy without erythema. He had some semisolid stools. Saline irrigation was needed for visualization of the mucosal folds. Care was taken to visualize each mucosal folds. No scattered diverticulosis was encountered. No increased mucus was identified. No colonic polyps were found. No evidence of gross colitis was found. Multiple random cold forceps biopsies was obtained throughout the entire colon. Retroflexion of the scope demonstrated grade 2 internal hemorrhoids without active bleeding or inflammation. The colon was desufflated. The patient had tolerated the procedure well. Withdrawal time was over 6 minutes. FINDINGS: Internal hemorrhoids, grade 2. Eexternal hemorrhoids, grade 2. No arteriovenous malformations. No adenomatous polyps or villous adenoma identified. No gross focal colitis. No scattered diverticulosis. RECOMMENDATIONS: Lower endoscopy every 10 years per screening guidelines. Further recommendations pending results of biopsy. Recommend antidiarrheals.
[2016-07-31] MEDS: LOPERAMIDE 2 MG CAP PO SCH ×2 (13:17→19:51)
--- NOTE | 2016-07-31 16:08 | P.PN ---
Progress Note - Text Patient seen and reevaluated this evening. Results of his upper and lower endoscopy were reviewed. No evidence of colon polyps or cancer identified. Labs were also reviewed. Recommend daily multivitamin supplement as well as high protein diet which is also discussed with him. Further results and care plan pending pathology.
[2016-07-31] MEDS ORDERED: MAGNESIUM SULFATE-D5W PMX 1 GM in DEXTROSE/WATER 1 100ML.BAG IVPB SCH (16:15)
[2016-07-31] MEDS: SODIUM CHLORIDE 0.9% 1,000 ML IV SCH (19:18)
--- NOTE | 2016-07-31 22:14 | PN ---
DATE OF SERVICE: 07/31/2016 PRESENTING COMPLAINT: Weak, tired, diarrhea. This is a patient who presented with chronic diarrhea, weight loss, severe hypoalbuminemia; has had a recent cholecystectomy. Workup is in place. There is suspicion for chronic liver disease cirrhosis. Two-D echo shows preserved LV function. Lying in bed. Review of systems done for constitutional, cardiovascular, GI, pulmonary; relevant findings as above. Current medications are reviewed and include IV Lasix. PHYSICAL EXAMINATION: VITAL SIGNS: Temperature 99.7, pulse 73, respiratory rate 15, blood pressure 138/95, oxygen saturation 100% on room air. GENERAL APPEARANCE: Lying in bed. Awake. Tired. EYES: Pupils equal. Conjunctivae pale. NECK: JVD not raised. Mass not palpable. RESPIRATORY: Effort increased. LUNGS: Decreased breath sounds bilaterally. CARDIOVASCULAR: S1, S2 sounds normal. Edema is still present. ABDOMEN: Distended, soft. Liver and spleen not palpable. PSYCHIATRIC: Alert. Affect normal. INVESTIGATIONS: EGD with colonoscopy revealed internal hemorrhoids grade 2, external hemorrhoids grade 2. No AV malformations. No polyps or villous adenoma. No focal colitis. No scattered diverticulosis. Red blood cell count 3.22, hemoglobin 10.8, down from 12.3 on 07/30. Sodium 130. Calcium 6.6. Magnesium 1.4. ASSESSMENT: 1. Acute on chronic diarrhea that has been present for 2 to 3 months. In the interim, patient has had a cholecystectomy. The patient most likely has some primary GI cause; potentially small bowel etiology or even large bowel etiology. EGD and colonoscopy performed today detailed in Investigations. 2. Chronic liver disease is still in the differential, as it could not be well seen on ultrasound. 3. Severe hypoalbuminemia from chronic liver disease or from severe diarrhea causing third-spacing and fluid retention. 4. Severe scrotal fluid collection/hydrocele, probably result of severe hypoalbuminemia. 5. Hypothyroidism. Patient was seen by Dr. Greer from Endocrinology. 6. Multiple electrolyte abnormalities, including low zinc, low copper. PLAN: Care was discussed at length with the patient. Patient needs biopsy of the colon, which was performed today during the EGD and colonoscopy. Endocrinology recommends increasing levothyroxine to 75 during this hospital stay, to go home on 50 when discharged. GI, Endocrinology and Medicine will continue to follow the care of this patient. The patient was seen and examined by me, nurse practitioner, and attending, Dr. Abraham. The relevant points of the history, physical, diagnoses and plan were discussed and are as dictated above.
[2016-08-01] MEDS: FUROSEMIDE 10 MG/ML 4 ML VIAL IV SCH (06:35)
[2016-08-01] MEDS: LEVOTHYROXINE 75 MCG TAB PO SCH (06:35)
[2016-08-01 07:40] LABS: Anion Gap 6 mmol/L; Blood Urea Nitrogen 13 mg/dL (9-20); Carbon Dioxide 21 mmol/L (22-30); Chloride 102 mmol/L (98-107); Glucose 84 mg/dL (74-99); Magnesium 1.6 mg/dL (1.6-2.3); Non-African American GFR(MDRD) >60 (>60 ml/min/1.73 sqM); Sodium 129 mmol/L (137-145)
[2016-08-01] MEDS: PANTOPRAZOLE 40 MG TABLET PO SCH (07:42)
[2016-08-01 07:45] LABS: CH 33.6; CHCM 33.1; HDW 3.21; HGB 10.3 gm/dL (13.0-17.5); MCH 34.1 pg (25.0-35.0); MCHC 33.3 g/dL (31.0-37.0); MCV 102.5 fL (80.0-100.0); Macrocytosis Slight; Mean Platelet Volume 8.9; RBC 3.02 m/uL (4.30-5.90); WBC 9.4 k/uL (3.8-10.6)
[2016-08-01 07:47] LABS: Potassium 2.8 mmol/L (3.5-5.1)
[2016-08-01 07:49] LABS: Calcium 6.4 mg/dL (8.4-10.2)
[2016-08-01] MEDS ORDERED: Magnesium Replacement Protocol 1 EACH MISC MISCELLANE PRN ×2 (08:00→08:17)
[2016-08-01] MEDS ORDERED: Potassium Replacement Protocol 1 EACH MISC MISCELLANE PRN ×2 (08:09→16:35)
[2016-08-01] MEDS: LOPERAMIDE 2 MG CAP PO SCH ×3 (08:19→20:49)
[2016-08-01] MEDS: FOLIC ACID-VIT B COMPLEX-VIT C 1 CAP PO SCH (08:20)
[2016-08-01] MEDS: POTASSIUM CHLORIDE 10 MEQ, LIDOCAINE 2% INJ 10 MG in SODIUM CHLORIDE 0.9% 100 ML IV SCH ×6 (09:19→20:49)
[2016-08-01] MEDS: ENOXAPARIN 60 MG/0.6 ML SYRINGE SQ SCH ×2 (10:15→20:50)
[2016-08-01] MEDS: MAGNESIUM SULFATE-D5W PMX 1 GM in DEXTROSE/WATER 1 100ML.BAG IVPB SCH ×2 (11:19→15:21)
[2016-08-01] MEDS: ZINC SULFATE 220 MG CAP PO SCH (11:19)
[2016-08-01] MEDS: MULTIVITAMINS, THERA 1 EACH TAB PO SCH (11:20)
--- NOTE | 2016-08-01 11:31 | P.PN ---
Subjective Principal diagnosis: Generalized weakness The patient is a 71-year-old gentleman admitted secondary to new onset cardiomyopathy including multiple electrolyte dyscrasias, severe protein malnutrition and hypothyroidism as well as elevated liver enzymes. He still reports chronic diarrhea. He is receiving Ensure with high sugar content. He reports diarrhea especially after eating. He is complaining about the dietary options which are extremely limited. He is eager to have outside food to increase his nutrition. He reports feeling worse today. Incidentally, his potassium is extremely low and is less than 3. He reports cold intolerance. He denies any abdominal pain. Objective - Vital Signs Vital signs: Vital Signs Temp 97.8 F 08/01/16 03:49 Pulse 78 08/01/16 03:49 Resp 16 08/01/16 04:00 BP 89/54 08/01/16 03:49 Pulse Ox 97 08/01/16 03:49 Intake & Output 07/31/16 08/01/16 08/01/16 18:59 06:59 18:59 Intake Total 700 480 Output Total 600 1000 Balance 100 -1000 480 Weight 69.5 kg Intake: IV 700 Oral 480 Output: Urine 600 1000 Other: Voiding Method Urinal # Voids 1 - Exam GENERAL: Well developed and in no acute distress. Pleasant. HEENT: No sclera icterus. Extraocular movements grossly intact. Moist buccal mucosa. Head is atraumatic, normocephalic. Hears conversational speech. No nasal drainage. NECK: Supple without lymphadenopathy. No JV distention. CHEST: Non-labored respirations and equal bilateral excursions. CARDIOVASCULAR: Cardiac. Palpable 2+ radial pulses. ABDOMEN: Soft, nontender. Nondistended. MUSCULOSKELETAL: No clubbing, cyanosis. 2+ bilateral pitting edema. NEUROLOGIC: No focal or lateralizing signs. Resolved intentional tremors. Cranial nerves II through XII grossly intact. PSYCH: Appropriate affect. Alert and oriented to person, place and time. - Labs CBC & Chem 7: 08/01/16 06:24 08/01/16 06:24 Labs: Abnormal Lab Results - Last 24 Hours (Table) 07/29/16 08/01/16 08/01/16 Range/Units 07:09 06:24 06:24 RBC 3.02 L (4.30-5.90) m/uL Hgb 10.3 L (13.0-17.5) gm/dL Hct 31.0 L (39.0-53.0) % MCV 102.5 H (80.0-100.0) fL Sodium 129 L (137-145) mmol/L Potassium 2.8 L* (3.5-5.1) mmol/L Carbon Dioxide 21 L (22-30) mmol/L Calcium 6.4 L* (8.4-10.2) mg/dL Total Protein (PEP) 4.4 L (6.2-8.2) g/dL Albumin (PEP) 1.19 L (3.80-4.90) g/dL [id number] 0.44 L (0.60-1.00) g/dL Gamma Globulins 1.65 H (0.70-1.50) g/dL Assessment and Plan (1) Marasmic kwashiorkor Status: Acute (2) Hypothyroidism Status: Chronic (3) Muscle wasting Status: Acute (4) Hyperdynamic circulation Status: Acute (5) Cardiomyopathy due metabolic or nutritional disease Status: Acute (6) Anasarca Status: Acute (7) Hypomagnesemia Status: Chronic (8) Severe protein-calorie malnutrition Status: Acute (9) Dehydration Status: Acute (10) Hypocalcemia Status: Chronic (11) Hypomagnesemia Status: Acute (12) Diarrhea Status: Chronic (13) Scrotal edema Status: Acute (14) Elevated liver enzymes Status: Acute (15) Hypoalbuminemia due to protein-calorie malnutrition Status: Acute (16) Hyponatremia Status: Acute (17) Hypotension Status: Acute (18) Leg DVT (deep venous thromboembolism), acute Status: Acute (19) Primary hypothyroidism Status: Acute (20) Protein calorie malnutrition Status: Acute (21) Hypothyroidism determined by thyroid function test Status: Acute (22) Hypokalemia due to loss of potassium Status: Chronic Plan: 1. In review of his diet, he is receiving Ensure supplement however this is contraindicated as it has high sugar content 47g which puts him at risk for potential dumping syndrome and diarrhea. Recommend discontinuing Ensure. High protein supplement is advised with limited sugars less than 6 g per serving. 2. I have adjusted his diet to a high protein low sugar diet such as a bariatric pured. He requests pureed meals. Also recommend and encourage outside food such as muscle milk which has potassium supplement as well as high protein content and low sugar per serving. 3. He takes regular potassium supplements. I have placed him on scheduled potassium supplements as he is on scheduled Lasix per medicine. 4. His total protein and albumin levels are severely low consistent with severe protein malnutrition. With these markers and poor oral intake, he qualifies for nutritional and enteric supplements through a gastrostomy tube. This was described at detail as his nutrition is severely limited. In the interim, I have allowed for outside meals. No surgical intervention until results of his pathology report is available for his random colon biopsies and stomach biopsies as well as small bowel biopsies. 5. For his chronic diarrhea, also recommend Lacto acidophilus supplement. Additionally, he may benefit from Flagyl however this is pending results of his pathology report and colon biopsies. 6. He has history of chronic hypo-magnesia and I have restarted him on his regular doses of his magnesium supplements as well. 7. He has been started also on daily multivitamin supplement as well. Will follow with you.
[2016-08-01 11:38] LABS: Selenium 86 mcg/L (63-160)
[2016-08-01 15:52] LABS: Magnesium 1.8 mg/dL (1.6-2.3)
[2016-08-01 15:53] LABS: Potassium 2.9 mmol/L (3.5-5.1)
[2016-08-01] MEDS: LACTOBACILLUS ACIDOPH & BULGAR 1 EACH PACKET PO SCH ×2 (17:28→20:50)
--- NOTE | 2016-08-01 18:05 | PN ---
Patient has multiple medical issues going on at this point of time. Patient has chronic diarrhea, weight loss, severe hypoalbuminemia. Patient was evaluated by Gastroenterology as well as Surgery. Patient was diagnosed with protein-calorie malnutrition. Patient was receiving Lasix for his edema and anasarca which were believed secondary to hypoalbuminemia, which is not that severe, which is probably moderate hypoalbuminemia. I do not believe patient has kwashiokor or marasmus, although patient does have some protein-calorie malnutrition which may be moderate. Patient was extensively evaluated. Patient was receiving IV Lasix. I did orthostatic vitals today. Patient has positive orthostatic vitals, severely intravascularly volume-depleted. Discontinue IV Lasix. I will not start him on any IV fluids. Will recheck orthostatics again. If it is positive, we may end up giving him IV fluids. Patient is on high-protein diet, which is appropriate. REVIEW OF SYSTEMS: GENERAL: Patient is complaining of generalized tiredness and weakness. CARDIOVASCULAR: No chest pain, no orthopnea, no PND, no palpitations. PULMONARY: Denied any shortness of breath. No cough or hemoptysis. GASTROINTESTINAL: No diarrhea, nausea or vomiting. No abdominal pain. Normoactive bowel sounds. NEUROLOGIC: No headaches, no weakness, no numbness. PHYSICAL EXAMINATION: VITAL SIGNS: Temperature 96.0, pulse of 70, respiratory rate of 16. Blood pressure is 113/70. Saturating at 94% on room air. GENERAL: Patient appears to be tired. He has thin build, although not severely malnourished. I do not believe patient has kwashiokor or marasmus. HEENT: Pupils are round and equally reacting to light. EOMI. No scleral icterus. No conjunctival pallor. Normocephalic, atraumatic. No pharyngeal erythema. No thyromegaly. CARDIOVASCULAR: S1 and S2 present. No murmurs, rubs, or gallops. PULMONARY: Chest is clear to auscultation, no wheezing or crackles. ABDOMEN: Soft, nontender, nondistended, normoactive bowel sounds. No palpable organomegaly. MUSCULOSKELETAL: No joint swelling or deformity. EXTREMITIES: No cyanosis, clubbing, or pedal edema. NEUROLOGICAL: Gross neurological examination did not reveal any focal deficits. SKIN: No rashes. LABORATORY DATA: Patient is hyponatremic due to excessive Lasix therapy. Patient is definitely intravascularly volume-depleted now. Potassium is 2.9, magnesium is 1.8, all of which will be supplemented as per protocol. Recheck the electrolytes tomorrow. Diarrhea appears to have improved. Patient has chronic diarrhea which needs further evaluation. Patient underwent EGD and colonoscopy which showed some gastroesophageal reflux disease and colonoscopy showed internal and external hemorrhoids. ASSESSMENT AND PLAN: 1. Recurrent chronic diarrhea. Further evaluation as an outpatient. Patient appears to have some malabsorption syndrome. His INR was elevated. 2. Left lower limb deep venous thrombosis, for which patient is on anticoagulation. 3. Anasarca, believed secondary to hypoalbuminemia. 4. Hypothyroidism. Continue with levothyroxine. Dr. Isi Greer from Endocrinology evaluated the patient as well. 5. Multiple electrolyte abnormalities, including severe hypokalemia secondary to excessive diuretic therapy, which I believe is not necessary, which was actually given because of severe anasarca. IV diuretic therapy will be discontinued. Will monitor him. Patient will need to go to subacute rehab on Wednesday.
[2016-08-01] MEDS: MAGNESIUM OXIDE 400 MG TAB PO SCH (20:50)
[2016-08-01] MEDS: POTASSIUM CHLORIDE ER 20 MEQ TAB.ER PO SCH (20:50)
[2016-08-02] MEDS: POTASSIUM CHLORIDE 10 MEQ, LIDOCAINE 2% INJ 10 MG in SODIUM CHLORIDE 0.9% 100 ML IVPB SCH ×4 (00:06→06:02)
[2016-08-02 03:53] LABS: CH 34.1; CHCM 34.2; HDW 3.04; HGB 11.2 gm/dL (13.0-17.5); MCH 33.3 pg (25.0-35.0); MCHC 33.1 g/dL (31.0-37.0); MCV 100.6 fL (80.0-100.0); Macrocytosis Slight; Mean Platelet Volume 9.1; RBC 3.38 m/uL (4.30-5.90); RDW 15.1 % (11.5-15.5)
[2016-08-02 03:58] LABS: INR 1.6 (<1.1); Prothrombin Time 15.2 sec (9.0-12.0)
[2016-08-02 04:09] LABS: Anion Gap 2 mmol/L; Blood Urea Nitrogen 11 mg/dL (9-20); Carbon Dioxide 27 mmol/L (22-30); Chloride 99 mmol/L (98-107); Glucose 85 mg/dL (74-99); Magnesium 1.9 mg/dL (1.6-2.3); Non-African American GFR(MDRD) >60 (>60 ml/min/1.73 sqM); Potassium 3.5 mmol/L (3.5-5.1); Sodium 128 mmol/L (137-145)
[2016-08-02 04:18] LABS: Calcium 6.4 mg/dL (8.4-10.2)
[2016-08-02] MEDS: LEVOTHYROXINE 75 MCG TAB PO SCH (06:02)
[2016-08-02] MEDS ORDERED: Magnesium Replacement Protocol 1 EACH MISC MISCELLANE PRN (06:40)
[2016-08-02] MEDS: MAGNESIUM SULFATE-D5W PMX 1 GM in DEXTROSE/WATER 1 100ML.BAG IVPB SCH ×2 (07:15→08:19)
[2016-08-02] MEDS: PANTOPRAZOLE 40 MG TABLET PO SCH (07:19)
[2016-08-02] MEDS: LACTOBACILLUS ACIDOPH & BULGAR 1 EACH PACKET PO SCH ×3 (08:08→21:36)
[2016-08-02] MEDS: FOLIC ACID-VIT B COMPLEX-VIT C 1 CAP PO SCH (08:09)
[2016-08-02] MEDS: POTASSIUM CHLORIDE ER 20 MEQ TAB.ER PO SCH ×2 (08:09→20:30)
[2016-08-02] MEDS: ENOXAPARIN 60 MG/0.6 ML SYRINGE SQ SCH ×2 (08:09→20:29)
[2016-08-02] MEDS: MAGNESIUM OXIDE 400 MG TAB PO SCH ×2 (08:09→20:29)
[2016-08-02] MEDS: LOPERAMIDE 2 MG CAP PO SCH ×3 (08:09→21:36)
[2016-08-02] MEDS ORDERED: Potassium Replacement Protocol 1 EACH MISC MISCELLANE PRN (09:24)
--- NOTE | 2016-08-02 10:51 | P.PN ---
Subjective Principal diagnosis: Generalized weakness The patient is a 71-year-old gentleman admitted secondary to chronic diarrhea, multiple electrolyte dyscrasias as well as cardiomyopathy and severe protein malnutrition. He had been started on a high protein pured diet. He has been tolerating his diet. He also has been started on multiple nutritional supplements as well as protein shakes which he is tolerating. His diarrhea has moderately improved since admission. He has been placed on probiotics. He reports swelling along his testicles has completely resolved. Swelling along the bilateral legs is moderately improved. He has been discontinued off Lasix per his hospitalist. Objective - Vital Signs Vital signs: Vital Signs Temp 96.0 F L 08/02/16 00:50 Pulse 84 08/02/16 00:50 Resp 16 08/02/16 00:50 BP 88/53 08/02/16 00:50 Pulse Ox 96 08/02/16 00:50 Intake & Output 08/01/16 08/02/16 08/02/16 18:59 06:59 18:59 Intake Total 1591 380 200 Output Total 500 Balance 1091 380 200 Weight 69.5 kg 71 kg Intake: Intake, IV Titration 201 Amount Magnesium Sulfate-D5w Pmx 100 1 gm In Dextrose/Water 1 100ml.bag @ 100 mls/hr IVPB Q1H [facility] Rx#: [id number] Potassium Chloride 10 meq 100 Lidocaine 2% Inj 10 mg In Sodium Chloride 0.9% 100 ml @ 100 mls/hr IV Q1HR [facility] Rx#:[id number] Sodium Chloride 0.9% 1, 1 000 ml @ 20 mls/hr IV . Q24H [facility] Rx#:[id number] Oral 1390 380 200 Output: Urine 500 Other: Voiding Method Toilet Toilet Toilet # Voids 2 2 # Bowel Movements 1 - Exam GENERAL: Well developed and in no acute distress. Pleasant. HEENT: No sclera icterus. Extraocular movements grossly intact. Moist buccal mucosa. Head is atraumatic, normocephalic. Hears conversational speech. No nasal drainage. He is edentulous. NECK: Supple without lymphadenopathy. No JV distention. CHEST: Non-labored respirations and equal bilateral excursions. CARDIOVASCULAR: Regular rate regular rhythm. Palpable 2+ radial pulses. ABDOMEN: Soft, nontender. Nondistended. MUSCULOSKELETAL: No clubbing, cyanosis. 1+ bilateral pitting edema, left greater than right. NEUROLOGIC: No focal or lateralizing signs. Resolved intentional tremors. Cranial nerves II through XII grossly intact. PSYCH: Appropriate affect. Alert and oriented to person, place and time. - Labs CBC & Chem 7: 08/02/16 03:40 08/02/16 08:24 Labs: Abnormal Lab Results - Last 24 Hours (Table) 08/01/16 08/01/16 08/02/16 Range/Units 14:58 22:46 03:40 RBC (4.30-5.90) m/uL Hgb (13.0-17.5) gm/dL Hct (39.0-53.0) % MCV (80.0-100.0) fL PT (9.0-12.0) sec Sodium 128 L (137-145) mmol/L Potassium 2.9 L* 3.1 L (3.5-5.1) mmol/L Calcium 6.4 L* (8.4-10.2) mg/dL 08/02/16 08/02/16 Range/Units 03:40 03:40 RBC 3.38 L (4.30-5.90) m/uL Hgb 11.2 L (13.0-17.5) gm/dL Hct 34.0 L (39.0-53.0) % MCV 100.6 H (80.0-100.0) fL PT 15.2 H (9.0-12.0) sec Sodium (137-145) mmol/L Potassium (3.5-5.1) mmol/L Calcium (8.4-10.2) mg/dL Assessment and Plan (1) Marasmic kwashiorkor Status: Acute (2) Hypothyroidism Status: Chronic (3) Muscle wasting Status: Acute (4) Hyperdynamic circulation Status: Acute (5) Cardiomyopathy due metabolic or nutritional disease Status: Acute (6) Anasarca Status: Acute (7) Hypomagnesemia Status: Chronic (8) Severe protein-calorie malnutrition Status: Acute (9) Dehydration Status: Acute (10) Hypocalcemia Status: Chronic (11) Hypomagnesemia Status: Acute (12) Diarrhea Status: Chronic (13) Scrotal edema Status: Acute (14) Elevated liver enzymes Status: Acute (15) Hypoalbuminemia due to protein-calorie malnutrition Status: Acute (16) Hyponatremia Status: Acute (17) Hypotension Status: Acute (18) Leg DVT (deep venous thromboembolism), acute Status: Acute (19) Primary hypothyroidism Status: Acute (20) Protein calorie malnutrition Status: Acute (21) Hypothyroidism determined by thyroid function test Status: Acute (22) Hypokalemia due to loss of potassium Status: Chronic Plan: 1. He is responding well to adjustment of his diet to bariatric pured diet which is in fact a high protein pured meal. He also reports tolerating the taste of his food. 2. His diarrhea is improving however he will need more time for his probiotics to work generally within 2-3 days to recolonize his GI tract. 3. Recommend correction of hyponatremia including hypomagnesemia and hypokalemia. 4. I have encouraged him to have as much outside food as to help with his overall nutrition. 5. Disposition pending resolution of electrolyte dyscrasias and improvement of diarrhea. 6. We're still pending the results of this pathology of this colon which will help determine whether Flagyl may be of use. Care plan was described to the patient and demonstrated understanding of goals of care.
[2016-08-02] MEDS: POTASSIUM CHLORIDE 10 MEQ, LIDOCAINE 2% INJ 10 MG in SODIUM CHLORIDE 0.9% 100 ML IV SCH ×2 (11:30→12:32)
[2016-08-02] MEDS: MULTIVITAMINS, THERA 1 EACH TAB PO SCH (11:30)
[2016-08-02] MEDS: ZINC SULFATE 220 MG CAP PO SCH (11:30)
[2016-08-02] MEDS ORDERED: CALCIUM GLUCONATE 1,000 MG in SODIUM CHLORIDE 0.9% 100 ML IVPB ONE (12:00)
[2016-08-02] MEDS ORDERED: SODIUM CHLORIDE 0.9% 1,000 ML IV SCH (12:15)
[2016-08-02] MEDS ORDERED: POTASSIUM CHLORIDE ER 20 MEQ TAB.ER PO STA (12:31)
[2016-08-02] MEDS: 0.9% NACL WITH KCL 20 MEQ/L 1,000 ML IV SCH (12:59)
[2016-08-02] MEDS: CHOLESTYRAMINE (WITH SUGAR) 4 GM PACKET PO SCH ×2 (14:49→20:23)
--- NOTE | 2016-08-02 15:06 | PN ---
Patient is admitted with malnutrition and anasarca. Patient is severely intravascular depleted. I started him on IV fluids. Patient will need extensive outpatient evaluation for his chronic diarrhea including malnutrition assessment. Assessment for malabsorption syndrome. Patient continues to be hyponatremic. Patient's says he has episodes of diarrhea. It was documented. Patient had one episode of diarrhea and as per the nursing staff patient had one episode of diarrhea. REVIEW OF SYSTEMS: CARDIOVASCULAR: No chest pain, no orthopnea, no PND, no palpitations. PULMONARY: Denied any shortness of breath. No cough or hemoptysis. GASTROINTESTINAL: No diarrhea, nausea or vomiting. No abdominal pain. Normoactive bowel sounds. NEUROLOGIC: No headaches, no weakness, no numbness. Medications were reviewed. PHYSICAL EXAMINATION: Temperature 96.0, pulse of 84, respiratory rate 16, blood pressure is 88/53. Patient has positive orthostatic vitals. GENERAL: The patient is alert and oriented x3, not in any acute distress. Well developed, well nourished. HEENT: Pupils are round and equally reacting to light. EOMI. No scleral icterus. No conjunctival pallor. Normocephalic, atraumatic. No pharyngeal erythema. No thyromegaly. CARDIOVASCULAR: S1 and S2 present. No murmurs, rubs, or gallops. PULMONARY: Chest is clear to auscultation, no wheezing or crackles. ABDOMEN: Soft, nontender, nondistended, normoactive bowel sounds. No palpable organomegaly. MUSCULOSKELETAL: No joint swelling or deformity. EXTREMITIES: No cyanosis, clubbing, or pedal edema. NEUROLOGICAL: Gross neurological examination did not reveal any focal deficits. SKIN: No rashes. LABORATORY DATA: Sodium is 128, potassium is 3.1, which will be supplemented and now 3.7. ASSESSMENT AND PLAN: 1. Recurrent chronic diarrhea. 2. Severe intravascular volume depletion secondary to dehydration from diarrhea and IV Lasix he was receiving, which was discontinued. 3. Anasarca secondary to above anemia in spite of previous anasarca. Patient is totally dry now and will need IV fluids. 4. Electrolyte abnormalities, which will be corrected. 5. Hypovolemic hyponatremia expected to improve with IV fluids. 6. Possible malabsorption syndrome. Anasarca was believed secondary to hypoalbuminemia.
[2016-08-02] MEDS: CALCIUM CARBONATE 500 MG CHEWABLE PO SCH ×2 (17:34→21:38)
[2016-08-03 01:40] LABS: Vitamin K 86 pg/mL (80-1160)
[2016-08-03] MEDS: LEVOTHYROXINE 75 MCG TAB PO SCH (05:32)
[2016-08-03] MEDS: 0.9% NACL WITH KCL 20 MEQ/L 1,000 ML IV SCH (05:32)
[2016-08-03] MEDS: CHOLESTYRAMINE (WITH SUGAR) 4 GM PACKET PO SCH ×2 (07:58→15:42)
[2016-08-03] MEDS: ENOXAPARIN 60 MG/0.6 ML SYRINGE SQ SCH ×2 (07:58→23:04)
[2016-08-03] MEDS: MAGNESIUM OXIDE 400 MG TAB PO SCH ×2 (07:58→23:04)
[2016-08-03] MEDS: LACTOBACILLUS ACIDOPH & BULGAR 1 EACH PACKET PO SCH ×3 (07:58→23:05)
[2016-08-03] MEDS: FOLIC ACID-VIT B COMPLEX-VIT C 1 CAP PO SCH (07:59)
[2016-08-03] MEDS: PANTOPRAZOLE 40 MG TABLET PO SCH (07:59)
[2016-08-03] MEDS: POTASSIUM CHLORIDE ER 20 MEQ TAB.ER PO SCH ×2 (07:59→23:04)
[2016-08-03] MEDS: CALCIUM CARBONATE 500 MG CHEWABLE PO SCH ×3 (08:04→23:05)
[2016-08-03] MEDS: LOPERAMIDE 2 MG CAP PO SCH ×3 (08:04→23:08)
[2016-08-03 08:11] LABS: INR 1.4 (<1.1)
[2016-08-03 08:14] LABS: Anion Gap 3 mmol/L; Blood Urea Nitrogen 15 mg/dL (9-20); Carbon Dioxide 24 mmol/L (22-30); Chloride 103 mmol/L (98-107); Glucose 81 mg/dL (74-99); Magnesium 1.8 mg/dL (1.6-2.3); Non-African American GFR(MDRD) >60 (>60 ml/min/1.73 sqM); Potassium 4.5 mmol/L (3.5-5.1); Sodium 130 mmol/L (137-145)
[2016-08-03 08:39] LABS: Calcium 6.5 mg/dL (8.4-10.2)
[2016-08-03] MEDS: MULTIVITAMINS, THERA 1 EACH TAB PO SCH (11:28)
[2016-08-03] MEDS: ZINC SULFATE 220 MG CAP PO SCH (11:28)
[2016-08-03] MEDS: VITAMIN A 10,000 UNIT CAPSULE PO SCH (15:42)
[2016-08-03] MEDS: SODIUM CHLORIDE 0.9% 1,000 ML IV SCH (15:42)
--- NOTE | 2016-08-03 16:44 | P.PN ---
Subjective Principal diagnosis: Generalized weakness The patient is a 71-year-old gentleman admitted secondary to chronic diarrhea, multiple electrolyte dyscrasias as well as cardiomyopathy and severe protein malnutrition. He has been tolerating his high-protein diet however he reports intolerance to cholestyramine powder packs. He describes his frustration with his medical care regarding multiple changes in medications. He does report having a relapse of severe diarrhea last night upon start of new medications. He also complains of change in taste of his meals and worsening vision especially at night. Objective - Vital Signs Vital signs: Vital Signs Temp 97.1 F L 08/03/16 15:16 Pulse 82 08/03/16 15:16 Resp 16 08/03/16 15:16 BP 91/60 08/03/16 15:16 Pulse Ox 100 08/03/16 15:16 Intake & Output 08/02/16 08/03/16 08/03/16 18:59 06:59 18:59 Intake Total 2825 2213 420 Output Total 51 660 Balance 2774 1553 420 Weight 74 kg 74 kg Intake: IV 900 0.9% NaCl with KCl 20 Meq 900 /l 1,000 ml @ 75 mls/hr IV .[id number] [facility] Rx#: [id number] Intake, IV Titration 825 Amount 0.9% NaCl with KCl 20 Meq 525 /l 1,000 ml @ 75 mls/hr IV .[id number] [facility] Rx#: [id number] Magnesium Sulfate-D5w Pmx 100 1 gm In Dextrose/Water 1 100ml.bag @ 100 mls/hr IVPB Q1H [facility] Rx#: [id number] Potassium Chloride 10 meq 100 Lidocaine 2% Inj 10 mg In Sodium Chloride 0.9% 100 ml @ 100 mls/hr IV Q1HR [facility] Rx#:[id number] Potassium Chloride 10 meq 100 Lidocaine 2% Inj 10 mg In Sodium Chloride 0.9% 100 ml @ 100 mls/hr IVPB Q1HR [facility] Rx#:[id number] Oral 2000 1313 420 Output: Urine 50 660 Urine/Stool Mix 1 Other: Voiding Method Urinal Urinal # Voids 3 # Bowel Movements 3 1 1 - Exam GENERAL: Well developed and in no acute distress. Pleasant. HEENT: No sclera icterus. Extraocular movements grossly intact. Moist buccal mucosa. Head is atraumatic, normocephalic. Hears conversational speech. No nasal drainage. He is edentulous. NECK: Supple without lymphadenopathy. No JV distention. CHEST: Non-labored respirations and equal bilateral excursions. CARDIOVASCULAR: Regular rate regular rhythm. Palpable 2+ radial pulses. ABDOMEN: Soft, nontender. Nondistended. MUSCULOSKELETAL: No clubbing, cyanosis. 1+ bilateral pitting edema, left greater than right. NEUROLOGIC: No focal or lateralizing signs. Resolved intentional tremors. Cranial nerves II through XII grossly intact. PSYCH: Appropriate affect. Alert and oriented to person, place and time. - Labs CBC & Chem 7: 08/02/16 03:40 08/03/16 07:39 Labs: Abnormal Lab Results - Last 24 Hours (Table) 07/29/16 08/03/16 08/03/16 Range/Units 07:09 07:39 07:39 PT 14.0 H (9.0-12.0) sec Sodium 130 L (137-145) mmol/L Calcium 6.5 L* (8.4-10.2) mg/dL Vitamin A <13 L (38-106) ug/dL Copper 292 L (665-1480) ug/L Zinc 34 L (60-130) ug/dL Assessment and Plan (1) Marasmic kwashiorkor Status: Acute (2) Hypothyroidism Status: Chronic (3) Muscle wasting Status: Acute (4) Hyperdynamic circulation Status: Acute (5) Cardiomyopathy due metabolic or nutritional disease Status: Acute (6) Anasarca Status: Acute (7) Hypomagnesemia Status: Chronic (8) Severe protein-calorie malnutrition Status: Acute (9) Dehydration Status: Acute (10) Hypocalcemia Status: Chronic (11) Hypomagnesemia Status: Acute (12) Diarrhea Status: Chronic (13) Scrotal edema Status: Acute (14) Elevated liver enzymes Status: Acute (15) Hypoalbuminemia due to protein-calorie malnutrition Status: Acute (16) Hyponatremia Status: Acute (17) Hypotension Status: Acute (18) Leg DVT (deep venous thromboembolism), acute Status: Acute (19) Primary hypothyroidism Status: Acute (20) Protein calorie malnutrition Status: Acute (21) Hypothyroidism determined by thyroid function test Status: Acute (22) Hypokalemia due to loss of potassium Status: Chronic (23) Zinc deficiency Status: Acute (24) Vitamin A deficiency Status: Acute Plan: 1. Additional results of his vitamin panel was consistent with severe vitamin A deficiency. As he complains of worsening nighttime vision and generalized decreased vision, this consistent with symptoms of severe vitamin A deficiency. I have started him on a vitamin A supplement. 2. He also reports change in taste. His vitamin panel was also consistent with zinc deficiency which causes change in taste as well as worsening diarrhea. Continue with zinc supplement. 3. He reports intolerance to cholestyramine packets which as he has caused severe diarrhea. I would recommend discontinuing. 4. Continue with high protein diet in the interim. 5. Probiotics to be continued. 6. Potential discharge agreeable upon correction of hyponatremia and when medically stable.
[2016-08-03] MEDS ORDERED: CALCIUM GLUCONATE 1,000 MG in SODIUM CHLORIDE 0.9% 100 ML IVPB SCH (17:30)
[2016-08-03 18:05] LABS: Appearance,Urine Clear (Clear); Bilirubin,Urine Negative (Negative); Glucose,Urine (UA) Negative (Negative); Ketones,Urine Trace (Negative); Leukocyte Esterase,Urine Negative (Negative); Nitrite,Urine Negative (Negative); Protein,Urine Trace (Negative); Specific Gravity,Urine 1.018 (1.001-1.035); UA Billing (MACRO vs. MICRO) CHEM; Urobilinogen,Urine <2.0 mg/dL (<2.0)
--- NOTE | 2016-08-03 18:20 | PN ---
Patient is admitted with anasarca which was related secondary to malnutrition and hypoalbuminemia, although patient is severely intravascularly volume-depleted after an excessive amount of Lasix therapy. Patient also became hyponatremic and today morning his IV fluids were discontinued because of his increasing edema, although restarted back on Lasix. Patient's hyponatremia is due to severe hypovolemia and excessive diuretic therapy. Unfortunately patient starts to retain the third space whenever we give him IV fluids. Will get a nephrology opinion regarding that. Patient is hypotensive. Patient is complaining of light headedness as well, because of which unfortunately he will need fluids. REVIEW OF SYSTEMS: CARDIOVASCULAR: No chest pain, no orthopnea, no PND, no palpitations. PULMONARY: Denied any shortness of breath. No cough or hemoptysis. GASTROINTESTINAL: No diarrhea, nausea or vomiting. No abdominal pain. Normoactive bowel sounds. NEUROLOGIC: No headaches, no weakness, no numbness. GENERAL: As described in HPI. Medications were reviewed. PHYSICAL EXAMINATION: VITAL SIGNS: Temperature 97.5, pulse of 83, respiratory rate of 15. Blood pressure 94/69. Saturating at 96% on room air. GENERAL: Patient started having pedal edema, generalized edema again, which is pitting in nature. HEENT: Pupils are round and equally reacting to light. EOMI. No scleral icterus. No conjunctival pallor. Normocephalic, atraumatic. No pharyngeal erythema. No thyromegaly. CARDIOVASCULAR: S1 and S2 present. No murmurs, rubs, or gallops. PULMONARY: Chest is clear to auscultation, no wheezing or crackles. ABDOMEN: Soft, nontender, nondistended, normoactive bowel sounds. No palpable organomegaly. MUSCULOSKELETAL: No joint swelling or deformity. EXTREMITIES: See General. NEUROLOGICAL: Gross neurological examination did not reveal any focal deficits. SKIN: No rashes. LABORATORY DATA: Sodium improved to 130. INR 1.4. ASSESSMENT AND PLAN: 1. Generalized anasarca, improved with IV Lasix, but now patient is hypovolemic. 2. Hypovolemic hyponatremia. Patient will be started back on IV fluids. Will get nephrology opinion. 3. Recurrent chronic diarrhea. Patient complains of 4 episodes of diarrhea. Patient is not tolerating Questran very well. Patient needs to be further evaluated for chronic diarrhea. Patient had an upper and lower GI endoscopy; not much ( ) except for gastritis, esophagitis. Will ask Gastroenterology to come and reevaluate the patient. 4. Esophagitis, gastritis; multiple electrolyte abnormalities, slowly improving at this point of time after IV fluid resuscitation. Patient appears to have protein-calorie malnutrition from hypoalbuminemia and protein-calorie malnutrition which was believed secondary to possibility of malabsorption syndrome.
[2016-08-04] MEDS: SODIUM CHLORIDE 0.9% 1,000 ML IV SCH ×3 (04:30→21:07)
[2016-08-04] MEDS: LEVOTHYROXINE 75 MCG TAB PO SCH (05:36)
[2016-08-04 07:55] LABS: Magnesium 1.7 mg/dL (1.6-2.3); Potassium 4.5 mmol/L (3.5-5.1)
[2016-08-04 08:46] LABS: Ionized Calcium 4.6 mg/dL (4.5-5.3)
--- NOTE | 2016-08-04 10:10 | P.PN ---
Subjective Principal diagnosis: Diarrhea possible liver disease 71-year-old male reevaluated today in regards to diarrhea and possible underlying chronic liver disease. Still reports frequent nonbloody diarrhea. Status post EGD colonoscopy with biopsies reporting lymphocytic colitis. Anti- smooth muscle antibody borderline at 20. Ceruloplasmin 8.4. Serum protein electrophoresis reported albumin PEP 1.1. Gamma globulins 1.6. Objective - Vital Signs Vital signs: Vital Signs Temp 98.4 F 08/04/16 07:16 Pulse 77 08/04/16 07:16 Resp 16 08/04/16 07:16 BP 95/57 08/04/16 07:16 Pulse Ox 94 L 08/04/16 07:16 Intake & Output 08/03/16 08/04/16 08/04/16 18:59 06:59 18:59 Intake Total 1020 1400 240 Output Total 363 Balance 1020 1037 240 Weight 74 kg 73 kg Intake: IV 300 900 0.9% NaCl with KCl 20 Meq 300 /l 1,000 ml @ 75 mls/hr IV .[id number] INDIRA Rx#: [id number] Sodium Chloride 0.9% 1, 900 000 ml @ 75 mls/hr IV . [id number] INDIRA Rx#:[id number] Intake, IV Titration 300 Amount Sodium Chloride 0.9% 1, 300 000 ml @ 75 mls/hr IV . [id number] INDIRA Rx#:[id number] Oral 420 500 240 Output: Urine 363 Other: Voiding Method Urinal # Voids 1 # Bowel Movements 1 1 - Exam General appearance: The patient is alert, oriented, in no acute distress. Thin appearance with diffuse anasarca, mostly in the abdomen and lower extremities. HET: Head is normocephalic and atraumatic. Pupils are equal and reactive. Oropharynx is clear without lesions. Neck: Supple without lymphadenopathy. Trachea midline. Heart: S1 S2. Regular rate and rhythm. Lungs: No crackles or wheezes are heard. Abdomen: Soft, nontender, evidence of anasarca with bowel sounds. No peritoneal signs. No palpable organomegaly or masses. Extremities: Mild bilateral lower extremity edema with plus 2 scrotal edema. Neurological: No focal deficits. Strength and sensation are grossly intact. - Labs CBC & Chem 7: 08/02/16 03:40 08/04/16 07:16 Labs: Abnormal Lab Results - Last 24 Hours (Table) 08/03/16 08/04/16 Range/Units 17:50 07:16 Albumin 1.3 L (3.5-5.0) g/dL Urine Protein Trace H (Negative) Urine Ketones Trace H (Negative) Assessment and Plan (1) Elevated liver enzymes Narrative/Plan: History of remote EtOH abuse with CT imaging suggestive of a small liver, possible cirrhosis with perihepatic ascites. Cannot exclude underlying fatty infiltration, possible malignancy. Status: Acute (2) Leg DVT (deep venous thromboembolism), acute Narrative/Plan: Lovenox management Status: Acute (3) Hydrocele, bilateral Status: Acute (4) Acute diarrhea Narrative/Plan: Lymphocytic colitis status post EGD colonoscopy Status: Acute (5) Protein calorie malnutrition Narrative/Plan: Suspect moderate possible severe Status: Acute (6) Hypoalbuminemia due to protein-calorie malnutrition Status: Acute (7) Anasarca Status: Acute Plan: 1. Serologic workup for her cirrhosis has been reviewed cannot conclusively say there is not a component of cirrhosis present. Some of his chemistries could be related to profound protein calorie malnutrition. In regards to lymphocytic colitis would recommend budesonide however is not formulary here at the hospital and is a high cost prescription. Therefore would advise prednisone 30 mg daily 7 days, 25 mg daily 7 days, 20 mg daily 7 days, 15 mg daily 7 days, 10 mg daily 7 days. Return to GI office with Dr. Barragan in 1 week for reevaluation. Continue with loperamide 3-4 times daily for diarrhea. Questran does not seem to be helping his diarrhea and causes indigestion therefore recommend discontinuance. Assessment and plan of care discussed with Dr. Marcus.
[2016-08-04] MEDS: ENOXAPARIN 60 MG/0.6 ML SYRINGE SQ SCH ×2 (11:02→21:08)
[2016-08-04] MEDS: PANTOPRAZOLE 40 MG TABLET PO SCH (11:02)
[2016-08-04] MEDS: CALCIUM CARBONATE 500 MG CHEWABLE PO SCH ×3 (11:02→21:08)
[2016-08-04] MEDS: MAGNESIUM OXIDE 400 MG TAB PO SCH ×2 (11:03→21:08)
[2016-08-04] MEDS: FOLIC ACID-VIT B COMPLEX-VIT C 1 CAP PO SCH (11:03)
[2016-08-04] MEDS: POTASSIUM CHLORIDE ER 20 MEQ TAB.ER PO SCH ×2 (11:03→22:23)
[2016-08-04] MEDS: LACTOBACILLUS ACIDOPH & BULGAR 1 EACH PACKET PO SCH ×3 (11:09→21:09)
[2016-08-04] MEDS: LOPERAMIDE 2 MG CAP PO SCH ×3 (11:23→22:23)
[2016-08-04] MEDS: VITAMIN A 10,000 UNIT CAPSULE PO SCH (12:30)
[2016-08-04] MEDS: MULTIVITAMINS, THERA 1 EACH TAB PO SCH (12:30)
[2016-08-04] MEDS: MAGNESIUM SULFATE-D5W PMX 1 GM in DEXTROSE/WATER 1 100ML.BAG IVPB SCH ×2 (12:45→13:55)
[2016-08-04] MEDS: predniSONE 10 MG TAB PO SCH (13:17)
--- NOTE | 2016-08-04 16:42 | P.PN ---
Subjective 71-year-old being seen with the attending. Currently sitting up in bed. Patient continues to report having frequent nonbloody loose stools. Patient is status post EGD colonoscopy with biopsies reporting lymphocytic colitis. Gastroenterology following patient Objective - Vital Signs Vital signs: Vital Signs Temp 95.0 F L 08/04/16 14:35 Pulse 77 08/04/16 16:00 Resp 18 08/04/16 16:00 BP 97/66 08/04/16 14:35 Pulse Ox 98 08/04/16 14:35 Intake & Output 08/03/16 08/04/16 08/04/16 18:59 06:59 18:59 Intake Total 1020 1400 1470 Output Total 363 726 Balance 1020 1037 744 Weight 74 kg 73 kg 73 kg Intake: IV 300 900 650 0.9% NaCl with KCl 20 Meq 300 /l 1,000 ml @ 75 mls/hr IV .[id number] INDIR[facility] Rx#: [id number] Sodium Chloride 0.9% 1, 900 650 000 ml @ 75 mls/hr IV . [id number] [facility] Rx#:[id number] Intake, IV Titration 300 100 Amount Magnesium Sulfate-D5w Pmx 100 1 gm In Dextrose/Water 1 100ml.bag @ 100 mls/hr IVPB Q1H IN[facility] Rx#: [id number] Sodium Chloride 0.9% 1, 300 000 ml @ 75 mls/hr IV . [id number] [facility] Rx#:[id number] Oral 420 500 720 Output: Urine 363 726 Other: Voiding Method Urinal Urinal # Voids 1 2 # Bowel Movements 1 1 - Exam Physical exam Alert oriented 3 Lungs essentially clear adequate air movement Heart S1-S2 audible regular Abdomen soft nontender reports having frequent loose stools Extremities mild bilateral lower extremity edema - Labs CBC & Chem 7: 08/02/16 03:40 08/04/16 07:16 Labs: Abnormal Lab Results - Last 24 Hours (Table) 08/03/16 08/04/16 Range/Units 17:50 07:16 Albumin 1.3 L (3.5-5.0) g/dL Urine Protein Trace H (Negative) Urine Ketones Trace H (Negative) Assessment and Plan Plan: Impression Present on admission moderate likely severe protein calorie malnutrition Hypoalbuminemia due to protein calorie malnutrition Acute diarrhea status post EGD colonoscopy suspect colitis Left DVT acute Elevated liver enzymes remote EtOH abuse Anasarca (1) Marasmic kwashiorkor Status: Acute (2) Hypothyroidism Status: Chronic (3) Muscle wasting Status: Acute (4) Hyperdynamic circulation Status: Acute (5) Cardiomyopathy due metabolic or nutritional disease Status: Acute (6) Anasarca Status: Acute (7) Hypomagnesemia Status: Chronic (8) Severe protein-calorie malnutrition Status: Acute (9) Dehydration Status: Acute (10) Hypocalcemia Status: Chronic (11) Hypomagnesemia Status: Acute (12) Diarrhea Status: Chronic (13) Scrotal edema Status: Acute Vitamin K deficiency Sitting deficiency Hypokalemia due to potassium loss Hypothyroidism determined by thyroid function test Acute primary hypothyroid Plan Electrolytes attempt keep in a therapeutic range Continue with recommendations per GI service Continue current medical regime Probiotics to be continued. High-protein diet Potential discharge agreeable upon correction of electrolytes and when medically stable defer to the timing by medical service The above dictated assessment and findings were discussed with dr Mejia . Impression and the plan of care have been dictated as directed. Adilene Swenson nurse practitioner acting as a scribe for Dr. Mejia
[2016-08-04 17:05] LABS: Glucose,Whole Blood 97 mg/dL (75-99)
[2016-08-04] MEDS: INSULIN LISPRO (humaLOG) 300 UNIT/3 ML VIAL SQ SCH ×2 (17:23→21:08)
--- NOTE | 2016-08-04 20:34 | CONS ---
DATE OF CONSULTATION: REASON FOR CONSULTATION: Hyponatremia and lower extremity edema. HISTORY OF PRESENT ILLNESS: Patient is a 71-year-old male who has chronic diarrhea and is status post colonoscopy. He was found to have lymphocytic colitis. Patient is quite hypoalbuminemic with an albumin level of 1.3 g/dL. Patient was initially diuresed, and it appears that his sodium dropped to around 128 mEq/L yesterday. He was then started on IV fluids and has developed increased lower extremity edema. He denies any chest pains or shortness of breath. Patient's urinalysis shows trace protein. He states that he has had swelling of his extremities prior to admission as well. Review of labs shows serum potassium as low as 2.9 mEq/L on 08/01, which was subsequently replaced. Creatinine has been at 0.7 to 0.6 mg/dL. PAST MEDICAL HISTORY: Gastroesophageal reflux disease, hypothyroidism. SOCIAL HISTORY: Patient is an ex-smoker. No history of drug abuse or alcohol abuse. MEDICATIONS AT HOME PRIOR TO ADMISSION: 1. Prilosec. 2. Centrum Silver. 3. Magnesium. ALLERGIES include IODINE. REVIEW OF SYSTEMS: Negative for fever, chills, nausea, vomiting. No chest pain, shortness of breath. Patient has had diarrhea. No major HEEL GUMMER symptoms. On examination, he is comfortable, awake, alert, oriented x3, not in any acute distress. Blood pressure is 97/66, heart rate 97 per minute. He is afebrile. EXAMINATION OF THE HEART: S1 and S2. EXAMINATION OF THE LUNGS: Bilateral breath sounds are heard. ABDOMEN: Soft, nontender. Examination of lower extremities shows edema 2+ bilaterally. HEEL GUMMER exam is grossly intact. Patient is moving all 4 extremities. Labs reveal sodium 130, potassium 4.5, chloride 103, BUN 15, serum creatinine 0.68. Calcium was 6.5. Albumin 1.3. UA shows trace protein, trace ketones. Anti-smooth muscle antibody was positive. Hepatitis serologies are negative. C difficile toxin was negative. Stool culture did not reveal any findings. ASSESSMENT: 1. Hypovolemic hyponatremia, currently improved with normal saline. Patient does have lower extremity edema secondary to severe hypoalbuminemia, which got worse with recent IV saline administration. At this time treatment of the underlying cause for the diarrhea along with increased protein intake is encouraged. There is no significant proteinuria noted to explain the lower extremity edema. [id number]-[id number] urine for protein will still be ordered, as the urinalysis only measures the albumin, and we should rule out other types of proteinuria in connection with paraproteinemias. 2. Low calcium level with corrected calcium of 8.7 mg/dL. 3. Chronic diarrhea diagnosed as lymphocytic colitis, being followed by GI. Patient has been started on prednisone. PLAN: Decrease IV fluids. Encourage increased oral intake. Add Ensure or Boost to increase protein intake. Check 24-hour urine for protein. Thank you for this consultation. Will continue to follow the patient with you during his hospitalization.
[2016-08-04 20:39] LABS: Glucose,Whole Blood 104 mg/dL (75-99)
[2016-08-04 22:14] VITALS: RESP 16
[2016-08-05] MEDS: LEVOTHYROXINE 75 MCG TAB PO SCH (06:20)
[2016-08-05 07:31] LABS: Glucose,Whole Blood 96 mg/dL (75-99)
[2016-08-05] MEDS: INSULIN LISPRO (humaLOG) 300 UNIT/3 ML VIAL SQ SCH ×4 (07:51→22:03)
[2016-08-05] MEDS: CALCIUM CARBONATE 500 MG CHEWABLE PO SCH ×3 (08:10→22:03)
[2016-08-05] MEDS: MAGNESIUM OXIDE 400 MG TAB PO SCH ×2 (08:11→22:04)
[2016-08-05] MEDS: PANTOPRAZOLE 40 MG TABLET PO SCH (08:11)
[2016-08-05] MEDS: POTASSIUM CHLORIDE ER 20 MEQ TAB.ER PO SCH ×2 (08:11→22:03)
[2016-08-05] MEDS: predniSONE 10 MG TAB PO SCH (08:11)
[2016-08-05] MEDS: FOLIC ACID-VIT B COMPLEX-VIT C 1 CAP PO SCH (08:11)
[2016-08-05] MEDS: LACTOBACILLUS ACIDOPH & BULGAR 1 EACH PACKET PO SCH ×3 (08:12→22:04)
[2016-08-05] MEDS: ENOXAPARIN 60 MG/0.6 ML SYRINGE SQ SCH ×2 (08:12→22:02)
[2016-08-05] MEDS: LOPERAMIDE 2 MG CAP PO SCH ×3 (08:19→22:06)
[2016-08-05 08:38] LABS: Anion Gap 1 mmol/L; Blood Urea Nitrogen 12 mg/dL (9-20); Calcium 7.1 mg/dL (8.4-10.2); Carbon Dioxide 23 mmol/L (22-30); Chloride 106 mmol/L (98-107); Glucose 91 mg/dL (74-99); Magnesium 1.7 mg/dL (1.6-2.3); Non-African American GFR(MDRD) >60 (>60 ml/min/1.73 sqM); Potassium 4.6 mmol/L (3.5-5.1); Sodium 130 mmol/L (137-145)
[2016-08-05 08:53] LABS: Basophils # (A) 0.1 k/uL (0-0.2); Basophils % (A) 1 %; CHCM 33.8; Eosinophils % (A) 0 %; HCT 31.8 % (39.0-53.0); HDW 3.18; HGB 10.7 gm/dL (13.0-17.5); Luc # (Auto) 0.25; Luc % (Auto) 4; Lymphocytes # (A) 1.3 k/uL (1.0-4.8); Lymphocytes % (A) 19 %; MCH 34.1 pg (25.0-35.0); MCHC 33.6 g/dL (31.0-37.0); MCV 101.4 fL (80.0-100.0); Macrocytosis Slight; Mean Platelet Volume 10.2; Monocytes # (A) 0.7 k/uL (0-1.0); Monocytes % (A) 10 %; Neutrophils # (A) 4.5 k/uL (1.3-7.7); Neutrophils % (A) 66 %; RBC 3.14 m/uL (4.30-5.90); RDW 15.4 % (11.5-15.5); WBC 6.8 k/uL (3.8-10.6); WBC (Perox) 6.11
[2016-08-05] MEDS: MAGNESIUM SULFATE-D5W PMX 1 GM in DEXTROSE/WATER 1 100ML.BAG IVPB SCH ×2 (10:50→12:31)
[2016-08-05 11:20] LABS: Glucose,Whole Blood 110 mg/dL (75-99)
[2016-08-05] MEDS: MULTIVITAMINS, THERA 1 EACH TAB PO SCH (12:32)
[2016-08-05] MEDS: VITAMIN A 10,000 UNIT CAPSULE PO SCH (12:32)
[2016-08-05 15:59] VITALS: PULSE 80
[2016-08-05] MEDS: SODIUM CHLORIDE 0.9% 1,000 ML IV SCH (16:13)
[2016-08-05 16:39] LABS: Glucose,Whole Blood 132 mg/dL (75-99)
--- NOTE | 2016-08-05 16:44 | P.PN ---
Subjective 71-year-old being seen and examined. States it's been up ambulating in the room. Patient states the stool is forming less frequent and tolerating a diet. Patient states he feels significantly improved .Patient is status post EGD colonoscopy with biopsies reporting lymphocytic colitis. Gastroenterology following patient Objective - Vital Signs Vital signs: Vital Signs Temp 97.9 F 08/05/16 15:59 Pulse 80 08/05/16 16:00 Resp 16 08/05/16 16:00 BP 101/70 08/05/16 15:59 Pulse Ox 97 08/05/16 15:59 Intake & Output 08/04/16 08/05/16 08/05/16 18:59 06:59 18:59 Intake Total 1470 1172 1000 Output Total 726 450 Balance 142 652 4035 Weight 73 kg 68.5 kg Intake: IV 650 450 Sodium Chloride 0.9% 1, 450 000 ml @ 50 mls/hr IV . Q20H [facility] Rx#:[id number] Sodium Chloride 0.9% 1, 650 000 ml @ 75 mls/hr IV . [id number] [facility] Rx#:[id number] Intake, IV Titration 100 600 Amount Magnesium Sulfate-D5w Pmx 100 200 1 gm In Dextrose/Water 1 100ml.bag @ 100 mls/hr IVPB Q1H [facility] Rx#: [id number] Sodium Chloride 0.9% 1, 400 000 ml @ 50 mls/hr IV . Q20H [facility] Rx#:[id number] Oral 720 722 400 Output: Urine 726 450 Other: Voiding Method Urinal Urinal Urinal # Voids 2 1 - Exam Physical exam Alert oriented 3 Lungs essentially clear adequate air movement Heart S1-S2 audible regular Abdomen soft nontender reports having less frequent loose stools Extremities mild bilateral lower extremity edema - Labs CBC & Chem 7: 08/05/16 07:57 08/05/16 07:57 Labs: Abnormal Lab Results - Last 24 Hours (Table) 08/04/16 08/05/16 08/05/16 Range/Units 20:34 07:57 07:57 RBC 3.14 L (4.30-5.90) m/uL Hgb 10.7 L (13.0-17.5) gm/dL Hct 31.8 L (39.0-53.0) % MCV 101.4 H (80.0-100.0) fL Sodium 130 L (137-145) mmol/L Creatinine 0.64 L (0.66-1.25) mg/dL POC Glucose (mg/dL) 104 H (75-99) mg/dL Calcium 7.1 L (8.4-10.2) mg/dL 08/05/16 08/05/16 Range/Units 11:16 16:38 RBC (4.30-5.90) m/uL Hgb (13.0-17.5) gm/dL Hct (39.0-53.0) % MCV (80.0-100.0) fL Sodium (137-145) mmol/L Creatinine (0.66-1.25) mg/dL POC Glucose (mg/dL) 110 H 132 H (75-99) mg/dL Calcium (8.4-10.2) mg/dL Assessment and Plan Plan: Impression Present on admission moderate likely severe protein calorie malnutrition Hypoalbuminemia due to protein calorie malnutrition Acute diarrhea status post EGD colonoscopy suspect colitis Left DVT acute Elevated liver enzymes remote EtOH abuse Anasarca (1) Marasmic kwashiorkor Status: Acute (2) Hypothyroidism Status: Chronic (3) Muscle wasting Status: Acute (4) Hyperdynamic circulation Status: Acute (5) Cardiomyopathy due metabolic or nutritional disease Status: Acute (6) Anasarca Status: Acute (7) Hypomagnesemia Status: Chronic (8) Severe protein-calorie malnutrition Status: Acute (9) Dehydration Status: Acute (10) Hypocalcemia Status: Chronic (11) Hypomagnesemia Status: Acute (12) Diarrhea Status: Chronic (13) Scrotal edema Status: Acute Vitamin K deficiency Sitting deficiency Hypokalemia due to potassium loss Hypothyroidism determined by thyroid function test Acute primary hypothyroid Plan Electrolytes attempt keep in a therapeutic range Continue with recommendations per GI service Continue current medical regime Probiotics to be continued. High-protein diet Potential discharge agreeable upon correction of electrolytes and when medically stable defer to the timing by medical service The above dictated assessment and findings were discussed with dr Mejia . Impression and the plan of care have been dictated as directed. Adilene Swenson nurse practitioner acting as a scribe for Dr. Mejia
--- NOTE | 2016-08-05 17:20 | PN ---
Patient is seen for followup for edema which is mostly secondary to hypoalbuminemia. Patient had significant orthostatic hypotension at the time of admission and he has been maintained on IV fluids. He states he is feeling better. He has had chronic diarrhea and was recently diagnosed with lymphocytic colitis, for which he is maintained on prednisone, and patient states his diarrhea is slightly improved. He is trying to increase protein in his diet and he is maintained on Ensure as well. On examination, blood pressure is 101/70, heart rate 80 per minute. He is afebrile. EXAMINATION OF THE HEART: S1 and S2. EXAMINATION OF THE LUNGS: Bilateral breath sounds are heard. Decreased breath sounds in bases. ABDOMEN: Soft, nontender. Examination of lower extremities shows edema 2+ bilaterally. There is edema noted in the upper extremity as well. INSOLE TACK PULLER HAND exam is grossly intact. Labs show sodium of 130, potassium 4.6, BUN 12, serum creatinine 0.64, hemoglobin 10.7 g/dL. ASSESSMENT: 1. Hypovolemic hyponatremia, currently improved with normal saline. Patient is encouraged to increase his oral protein intake. I will discontinue the saline for now, given his significant edema. 2. Lower extremity edema secondary to severe hypoalbuminemia. 3. Chronic diarrhea secondary to lymphocytic colitis diagnosed on colonoscopy, currently maintained on prednisone, being followed by GI. PLAN: Continue to encourage increased oral intake, particularly protein. Decrease IV fluids. I will hold off on diuresis at this time and expect improvement in edema with improving protein status.
--- NOTE | 2016-08-05 18:02 | P.PN ---
Progress Note - Text He is doing extremely well. "This is my best days since I have been here.". He responded well to steroids. He has an appetite. No further diarrhea. Patient is clear from a surgical standpoint for discharge when medically cleared.
--- NOTE | 2016-08-05 19:06 | P.PN ---
Subjective date of service 08/04/2016. Progress note being dictated for Dr. Garrison Interval history: This a 71-year-old gentleman admitted with generalized anasarca, hypovolemic hyponatremia, recurrent chronic diarrhea, esophagitis, gastritis, multiple electrolyte abnormalities, hypoalbuminemia, malnutrition, left legDVT.maintained on Lovenoxfor DVT. S/P EGD/colonoscopy, biopsies revealing lymphocytic colitis, maintained on oral steroids, loperamide. Continues to have frequent aynglwkx-xxi-xwndhl, negative for C. difficile. Patient declining Questran, states it causes upset stomach and not helping his diarrhea. Denies abdominal pain. albumin 1.3.evaluated by a nephrologywith recommendations noted. IV fluids decreased. Anti-smooth muscle antibody 20, gamma globulins 1.6, hepatitis serologies noted. Objective - Vital Signs Vital signs: Vital Signs Temp 98.4 F 08/04/16 07:16 Pulse 77 08/04/16 12:00 Resp 16 08/04/16 12:00 BP 95/57 08/04/16 07:16 Pulse Ox 94 L 08/04/16 07:16 Intake & Output 08/03/16 08/04/16 08/04/16 18:59 06:59 18:59 Intake Total 1020 1400 240 Output Total 363 363 Balance 1020 1037 -123 Weight 74 kg 73 kg 73 kg Intake: IV 300 900 0.9% NaCl with KCl 20 Meq 300 /l 1,000 ml @ 75 mls/hr IV .[id number] INDIR[facility] Rx#: [id number] Sodium Chloride 0.9% 1, 900 000 ml @ 75 mls/hr IV . [id number] [facility] Rx#:[id number] Intake, IV Titration 300 Amount Sodium Chloride 0.9% 1, 300 000 ml @ 75 mls/hr IV . [id number] [facility] Rx#:[id number] Oral 420 500 240 Output: Urine 363 363 Other: Voiding Method Urinal Urinal # Voids 1 1 # Bowel Movements 1 1 - Exam PHYSICAL EXAM: VITAL SIGNS: [as above] GENERAL: [sitting up in bed, no acute distress] HEENT: [Pupils equal conjunctiva normal.no conjunctival pallor] NECK: [Supple, no JVD] RESPIRATORY EFFORT:[normal] LUNGS: [] CARDIOVASCULAR[] GI: [Abdomen soft, nontender, positive bowel sounds.positive anasarca] PSYCH: [Alert and oriented -3, mood and affect normal.] SKIN:scrotal and bilateral lower extremities edema NEURO: - Labs CBC & Chem 7: 08/05/16 07:57 08/05/16 07:57 Labs: Abnormal Lab Results - Last 24 Hours (Table) 08/03/16 08/04/16 Range/Units 17:50 07:16 Albumin 1.3 L (3.5-5.0) g/dL Urine Protein Trace H (Negative) Urine Ketones Trace H (Negative) Assessment and Plan Plan: 1. [Generalized anasarca, improved with IV Lasix but became hypovolemic]. 2. [Hypovolemic hyponatremia, improved with IV fluids but developed significant lower extremity edema secondary to hypoalbuminemia]. 3. [Recurrent chronic diarrhea status post endoscopy revealing lymphocytic colitis]. 4. [Esophagitis, gastritis, multiple joint abnormalities, slowly improving]. 5. [Protein calorie malnutrition secondary to hypoalbuminemia, possibly malabsorption syndrome]. 6. [Hypocalcemia]. 7. Acute left leg DVT 8. Elevated liver enzymes in a patient with history of EtOH abuse 9. Hypomagnesemia 10. plan: Continue on current medication regime ,loperamide,monitoring and symptomatic treatment. protein supplements ordered. 24-hour urine for protein in progress.maintained on oral prednisone per GI for lymphocytic colitis.follow closely with both GI and nephrology. Close monitoring of electrolytes withi repeat labs ordered for am. Further recommendations to follow. The impression and plan of care has been dictated as directed. : I performed a H&P examination of this patient and discussed the same with the dictator. I agree with the dictator's note. Any additional findings/opinions/ etc. will be noted.
[2016-08-05 20:40] LABS: Glucose,Whole Blood 114 mg/dL (75-99)
[2016-08-05 22:37] VITALS: TEMP 97.4
[2016-08-06] MEDS ORDERED: ONDANSETRON 4 MG/2 ML VIAL IVP PRN (02:29)
[2016-08-06] MEDS: LEVOTHYROXINE 75 MCG TAB PO SCH (06:22)
[2016-08-06 07:52] LABS: Glucose,Whole Blood 83 mg/dL (75-99)
[2016-08-06 08:31] LABS: Basophils # (A) 0.1 k/uL (0-0.2); Basophils % (A) 1 %; CH 33.8; Eosinophils % (A) 0 %; HCT 28.8 % (39.0-53.0); HGB 9.9 gm/dL (13.0-17.5); Luc # (Auto) 0.22; Luc % (Auto) 4; Lymphocytes # (A) 1.8 k/uL (1.0-4.8); Lymphocytes % (A) 31 %; MCH 34.4 pg (25.0-35.0); MCHC 34.3 g/dL (31.0-37.0); MCV 100.3 fL (80.0-100.0); Macrocytosis Slight; Mean Platelet Volume 9.9; Monocytes # (A) 0.6 k/uL (0-1.0); Monocytes % (A) 11 %; Neutrophils % (A) 53 %; RBC 2.87 m/uL (4.30-5.90); RDW 15.3 % (11.5-15.5); WBC 5.7 k/uL (3.8-10.6); WBC (Perox) 5.49
[2016-08-06 08:32] LABS: Anion Gap 0 mmol/L; Blood Urea Nitrogen 10 mg/dL (9-20); Calcium 7.2 mg/dL (8.4-10.2); Carbon Dioxide 25 mmol/L (22-30); Chloride 106 mmol/L (98-107); Glucose 79 mg/dL (74-99); Non-African American GFR(MDRD) >60 (>60 ml/min/1.73 sqM); Potassium 4.8 mmol/L (3.5-5.1); Sodium 131 mmol/L (137-145)
[2016-08-06] MEDS: INSULIN LISPRO (humaLOG) 300 UNIT/3 ML VIAL SQ SCH ×2 (08:49→12:50)
[2016-08-06] MEDS: ENOXAPARIN 60 MG/0.6 ML SYRINGE SQ SCH (08:53)
[2016-08-06] MEDS: CALCIUM CARBONATE 500 MG CHEWABLE PO SCH (08:53)
[2016-08-06] MEDS: MAGNESIUM OXIDE 400 MG TAB PO SCH (08:54)
[2016-08-06] MEDS: PANTOPRAZOLE 40 MG TABLET PO SCH (08:55)
[2016-08-06] MEDS: LACTOBACILLUS ACIDOPH & BULGAR 1 EACH PACKET PO SCH (08:55)
[2016-08-06] MEDS: FOLIC ACID-VIT B COMPLEX-VIT C 1 CAP PO SCH (08:55)
[2016-08-06] MEDS: predniSONE 10 MG TAB PO SCH (08:56)
[2016-08-06] MEDS: POTASSIUM CHLORIDE ER 20 MEQ TAB.ER PO SCH (08:56)
[2016-08-06] MEDS: LOPERAMIDE 2 MG CAP PO SCH (08:59)
[2016-08-06 12:13] LABS: Glucose,Whole Blood 98 mg/dL (75-99)
[2016-08-06] MEDS: VITAMIN A 10,000 UNIT CAPSULE PO SCH (12:18)
[2016-08-06] MEDS: MULTIVITAMINS, THERA 1 EACH TAB PO SCH (12:18)
[2016-08-06 13:25] VITALS: BMI 22.9
[2016-08-06 14:23] VITALS: BP 94/71
[2016-08-06] MEDS ORDERED: FUROSEMIDE 10 MG/ML 2 ML VIAL IV ONE (14:29)
--- NOTE | 2016-08-06 18:55 | P.PN ---
Subjective date of service 08/05/2016. Progress note being dictated for Dr. Garrison Interval history: This a 71-year-old gentleman admitted with generalized anasarca, hypovolemic hyponatremia, recurrent chronic diarrhea , status post EGD /colonoscopy with diagnosis of lymphocytic colitis,multiple electrolyte abnormalities, hypoalbuminemia, malnutrition, left leg DVT.maintained on Lovenox for DVT. Maintained on oral steroids, loperamide. Questran discontinued as patient complained it created more GI upset. Stools less frequent firming up, tolerating increase in diet, consuming protein supplements, feels stronger today, ambulating with in room. Sodium 130.diuretics remain on hold.Denies abdominal pain. Objective - Vital Signs Vital signs: Vital Signs Temp 97.9 F 08/05/16 15:59 Pulse 80 08/05/16 16:00 Resp 16 08/05/16 16:00 BP 101/70 08/05/16 15:59 Pulse Ox 97 08/05/16 15:59 Intake & Output 08/05/16 08/05/16 08/06/16 06:59 18:59 06:59 Intake Total 1172 1000 Output Total 450 Balance 722 1000 Weight 68.5 kg Intake: IV 450 Sodium Chloride 0.9% 1, 450 000 ml @ 50 mls/hr IV . Q20H INDIR[facility] Rx#:[id number] Intake, IV Titration 600 Amount Magnesium Sulfate-D5w Pmx 200 1 gm In Dextrose/Water 1 100ml.bag @ 100 mls/hr IVPB Q1H [facility] Rx#: [id number] Sodium Chloride 0.9% 1, 400 000 ml @ 50 mls/hr IV . Q20H IN[facility] Rx#:[id number] Oral 722 400 Output: Urine 450 Other: Voiding Method Urinal Urinal # Voids 1 - Exam PHYSICAL EXAM: VITAL SIGNS: [as above] GENERAL: [sitting up in bed, no acute distress] HEENT: [Pupils equal conjunctiva normal.no conjunctival pallor] NECK: [Supple, no JVD] RESPIRATORY EFFORT:[normal] LUNGS: [Diminished, no crackles wheezes or rhonchi] CARDIOVASCULAR[regular S1 and S2, no murmurs rubs or gallops] GI: [Abdomen soft, nontender, positive bowel sounds.positive anasarca] PSYCH: [Alert and oriented -3, mood and affect normal.] SKIN:scrotal and bilateral lower extremities edema NEURO: No focal deficits, moves all 4 extremities, strength and sensation grossly intact - Labs CBC & Chem 7: 08/06/16 07:33 08/06/16 07:33 Labs: Abnormal Lab Results - Last 24 Hours (Table) 08/04/16 08/05/16 08/05/16 Range/Units 20:34 07:57 07:57 RBC 3.14 L (4.30-5.90) m/uL Hgb 10.7 L (13.0-17.5) gm/dL Hct 31.8 L (39.0-53.0) % MCV 101.4 H (80.0-100.0) fL Sodium 130 L (137-145) mmol/L Creatinine 0.64 L (0.66-1.25) mg/dL POC Glucose (mg/dL) 104 H (75-99) mg/dL Calcium 7.1 L (8.4-10.2) mg/dL 08/05/16 08/05/16 Range/Units 11:16 16:38 RBC (4.30-5.90) m/uL Hgb (13.0-17.5) gm/dL Hct (39.0-53.0) % MCV (80.0-100.0) fL Sodium (137-145) mmol/L Creatinine (0.66-1.25) mg/dL POC Glucose (mg/dL) 110 H 132 H (75-99) mg/dL Calcium (8.4-10.2) mg/dL Assessment and Plan Plan: 1. [Generalized anasarca, improved with IV Lasix but became hypovolemic]. 2. [Hypovolemic hyponatremia, improved with IV fluids but developed significant lower extremity edema secondary to hypoalbuminemia]. 3. [Recurrent chronic diarrhea status post endoscopy revealing lymphocytic colitis]. 4. [Esophagitis, gastritis, multiple joint abnormalities, slowly improving]. 5. [Protein calorie malnutrition secondary to hypoalbuminemia, possibly malabsorption syndrome]. 6. [Hypocalcemia]. 7. Acute left leg DVT 8. Elevated liver enzymes in a patient with history of EtOH abuse, possible.r/ t protein calorie malnutrition,fatty liver, possible cirrhosis,further f/u outpatient with GI. 9. Hypomagnesemia. plan: Continue on current medication regime ,loperamide,monitoring and symptomatic treatment. protein supplements ordered. Encourage protein supplements 3 times a day between meals and daily at bedtime snack. Diuretics remain on hold with IV fluids decreased. maintain oral prednisone per GI for lymphocytic colitis.follow closely with both GI and nephrology. Close monitoring of electrolytes withi repeat labs ordered for am. Discharge planning in progress for tomorrow, pending clearance from nephrology. The impression and plan of care has been dictated as directed. : I performed a H&P examination of this patient and discussed the same with the dictator. I agree with the dictator's note. Any additional findings/opinions/ etc. will be noted.
--- NOTE | 2016-08-06 19:13 | P.DS ---
Providers Date of admission: 07/28/16 15:22 Expected date of discharge: 08/06/16 Attending physician: Wilson Garrison Consults: 07/29/16 17:57 Consult Physician Routine Consulting Provider: Isi Greer Consult Reason/Comments: asess TSH levels Do you want consulting provider notified?: Yes 08/03/16 13:08 Consult Physician Routine Consulting Provider: Eleni Long Consult Reason/Comments: Hyponatremia Do you want consulting provider notified?: Yes Dr. Long,nephrology Dr. Arceo, Surgery Dr. Pati Marcus, GI Primary care physician: [facility] Course: Final Diagnoses: 1. [Generalized anasarca, improved with IV Lasix but became hypovolemic]. 2. [Hypovolemic hyponatremia, improved with IV fluids but developed significant lower extremity edema. 3. [Recurrent chronic diarrhea status post endoscopy revealing lymphocytic colitis]. 4. [Esophagitis, gastritis, multiple joint abnormalities, slowly improving]. 5. [Protein calorie malnutrition secondary to hypoalbuminemia, possibly malabsorption syndrome]. 6. [Hypocalcemia]. 7. Acute left leg DVT 8. Elevated liver enzymes in a patient with history of EtOH abuse, possible fatty liver, further follow-up outpatient with GI. 9. Hypomagnesemia. 10. Acute primary hypothyroidism, levothyroxine dose increased. Repeat thyroid levels in 6 weeks. Hospital course:This a 71-year-old gentleman admitted with generalized anasarca , hypovolemic hyponatremia, recurrent chronic diarrhea, esophagitis, gastritis, multiple electrolyte abnormalities, hypoalbuminemia, malnutrition, left leg DVT, maintained on Lovenox. S/P EGD/colonoscopy, biopsies revealed lymphocytic colitis, maintained on oral steroids, loperamide. Negative for C. difficile.Albumin 1.3. Evaluated by a multiple consults , general surgery, GI, nephrology. Fluid management challenging; generalized anasarca improved with IV Lasix but with diuresis became hypovolemic; hypovolemic hyponatremia improved with IV fluids but developed significant lower extremity edema secondary to hypoalbuminemia. Significant clinical improvement. Cleared by all consults for discharge. At discharge, Lasix was ordered twice weekly per nephrology. Patient is being discharged home in a stable condition with guarded prognosis. The impression and plan of care has been dictated as directed. : I performed a H&P examination of this patient and discussed the same with the dictator. I agree with the dictator's note. Any additional findings/opinions/ etc. will be noted. Patient Condition at Discharge: Stable Plan - Discharge Summary New Discharge Prescriptions: Folic Acid-Vit B Complex-Vit C [Nephrocaps] 1 each PO DAILY #30 cap Furosemide [Lasix] 20 mg PO DIRECTED #8 tab Lactobacillus Acidoph & Bulgar [Lactinex] 1 each PO TID #90 packet Levothyroxine Sodium [Synthroid] 75 mcg PO DAILY@0630 #30 tab Loperamide [Imodium] 4 mg PO TID PRN #42 cap PRN Reason: Diarrhea Rivaroxaban [Xarelto Starter Pack] 1 each PO DIRECTED #1 package Vitamin A 8,000 unit PO DAILY #30 capsule Zinc Gluconate [Zinc] 50 mg PO DAILY@1200 #60 tablet predniSONE 10 mg PO DIRECTED #64 tab Discharge Medication List Calcitriol [Rocaltrol] 0.25 mcg PO DAILY #30 cap 06/10/16 [Rx] Magnesium Oxide [Magox 400] 400 mg PO DAILY #60 tablet 07/21/16 [Rx] Vitamin A 8,000 unit PO DAILY #30 capsule 08/03/16 [Rx] Zinc Gluconate [Zinc] 50 mg PO DAILY@1200 #60 tablet 08/03/16 [Rx] Folic Acid-Vit B Complex-Vit C [Nephrocaps] 1 each PO DAILY #30 cap 08/06/16 [Rx ] Furosemide [Lasix] 20 mg PO DIRECTED #8 tab 08/06/16 [Rx] Lactobacillus Acidoph & Bulgar [Lactinex] 1 each PO TID #90 packet 08/06/16 [Rx] Levothyroxine Sodium [Synthroid] 75 mcg PO DAILY@0630 #30 tab 08/06/16 [Rx] Loperamide [Imodium] 4 mg PO TID PRN #42 cap 08/06/16 [Rx] Omeprazole [PriLOSEC] 20 mg PO AC-BRKFST #0 08/06/16 [Rx] Rivaroxaban [Xarelto Starter Pack] 1 each PO DIRECTED #1 package 08/06/16 [Rx ] predniSONE 10 mg PO DIRECTED #64 tab 08/06/16 [Rx] Follow up Appointment(s)/Referral(s): Eleni Long MD [STAFF PHYSICIAN] - 1 Week (office will call to set up follow up appointment) Emmanuel Barragan MD [STAFF PHYSICIAN] - 08/13/16 4:00 pm Vianney Mejia MD [STAFF PHYSICIAN] - 08/11/16 2:15 pm Ward Douglas MD [Primary Care Provider] - 08/10/16 12:15 pm Ambulatory/Diagnostic Orders: Comprehensive Metabolic Panel [LAB.AMB] Time Frame: 3 Days, Location: Determined By Patient Patient Instructions/Handouts: Furosemide (By mouth), Loperamide (By mouth), Levothyroxine (By mouth), Prednisone (By mouth), Zinc Sulfate (By mouth), Folic Acid (By mouth), Probiotic (By mouth), Rivaroxaban (By mouth), Heart Failure (DC ), Hypomagnesemia (DC) Activity/Diet/Wound Care/Special Instructions: High protein diet with protein shakes at least twice daily of 20 to 30 grams per shake. Discharge Disposition: HOME SELF-CARE
--- NOTE | 2016-08-28 07:45 | PN ---
DATE OF SERVICE: 07/31/2016 ATTENDING NOTE: This patient was seen and examined by me on 07/31/16. I reviewed the notes of my nurse practitioner, Ms. Yuen. Discussed and agreed. This is a patient who presented with acute on chronic diarrhea. EGD, colonoscopy showed some internal hemorrhoids and external hemorrhoids. No colitis. Patient is lying in bed. On examination, afebrile, blood pressure 130/95. LUNGS: Decreased breath sounds. CARDIOVASCULAR: First and second sounds normal. ABDOMEN: Soft, nontender. PSYCH: Alert, oriented x3. Mood and affect normal. ASSESSMENT: 1. Acute on chronic diarrhea, ( ) in place. EGD, colonoscopy results noted. 2. Severe hypoalbuminemia from chronic liver disease. 3. Hypothyroidism. 4. Multiple electrolyte abnormalities. PLAN: Continue current medication and treatment plan. Endocrinology increased the dose of levothyroxine. Follow.
== END 2016-08-06 16:45 | disposition home or self-care (01) | DRG 391 ==
LOC: EC 12:22 → 6SEL 15:22 → 3SUR 07-29 20:27 → 6SEL 07-29 20:30 → 3SUR 07-29 20:46 → 5MS5E 08-04 11:28
PROVIDERS: ADMIT Hospitalist; ATTEND Hospitalist
PROC: 0DBE8ZX Excision of Large Intestine, Via Natural or Artificial Opening Endoscopic, Diagnostic (ICD-10-PCS; principal; 2016-07-31 11:10)
PROC: 0DB98ZX Excision of Duodenum, Via Natural or Artificial Opening Endoscopic, Diagnostic (ICD-10-PCS; principal; 2016-07-31 11:10)
PROC: 0DB58ZX Excision of Esophagus, Via Natural or Artificial Opening Endoscopic, Diagnostic (ICD-10-PCS; principal; 2016-07-31 11:10)
PROC: 0DB68ZX Excision of Stomach, Via Natural or Artificial Opening Endoscopic, Diagnostic (ICD-10-PCS; principal; 2016-07-31 11:10)
DX: K91.2 Postsurgical malabsorption, not elsewhere classified (principal); E43 Unspecified severe protein-calorie malnutrition; I42.9 Cardiomyopathy, unspecified; R18.8 Other ascites; I82.402 Acute embolism and thrombosis of unspecified deep veins of left lower extremity; E87.1 Hypo-osmolality and hyponatremia; E86.0 Dehydration; K22.10 Ulcer of esophagus without bleeding; J98.11 Atelectasis; Z68.41 Body mass index [BMI] 40.0-44.9, adult; E83.42 Hypomagnesemia; E83.51 Hypocalcemia; E50.9 Vitamin A deficiency, unspecified; D53.9 Nutritional anemia, unspecified; E07.81 Sick-euthyroid syndrome; E56.1 Deficiency of vitamin K; E60 Dietary zinc deficiency; E73.9 Lactose intolerance, unspecified; E86.1 Hypovolemia; E87.6 Hypokalemia; I95.1 Orthostatic hypotension; K21.9 Gastro-esophageal reflux disease without esophagitis; K29.70 Gastritis, unspecified, without bleeding; K29.80 Duodenitis without bleeding; K31.7 Polyp of stomach and duodenum; K44.9 Diaphragmatic hernia without obstruction or gangrene; K52.832 Lymphocytic colitis; K52.9 Noninfective gastroenteritis and colitis, unspecified; K64.8 Other hemorrhoids; R13.10 Dysphagia, unspecified; Z79.01 Long term (current) use of anticoagulants; Z79.52 Long term (current) use of systemic steroids; Z79.899 Other long term (current) drug therapy; Z87.891 Personal history of nicotine dependence; E03.9 Hypothyroidism, unspecified
CPT/HCPCS: 36415; 43239; 45380; 71020; 71275; 74177; 76705; 80048; 80053; 80074; 81003; 81050; 82040; 82103; 82105; 82330; 82378; 82390; 82525; 82550; 82553; 82607; 82652; 82728; 82746; 83036; 83516; 83540; 83550; 83735; 83880; 84100; 84132; 84134; 84156; 84165; 84255; 84425; 84443; 84481; 84484; 84590; 84597; 84630; 85025; 85027; 85379; 85610; 85730; 86038; 87324; 87328; 87329; 88305; 88342; 89055; 93005; 93306; 93970; 94640; 94760; 96365; 96366; 96375; 99291

== ENCOUNTER 2017-01-16 23:36 | Inpatient (IN) | payer MEDICARE, OTHER ==
--- NOTE | 2017-01-17 00:28 | ED ---
General Adult HPI - General Chief complaint: Shortness of Breath Stated complaint: DAJUAN Time Seen by Provider: 01/16/17 23:39 Source: patient, family, EMS, RN notes reviewed, old records reviewed Mode of arrival: EMS - History of Present Illness Initial comments: 72-year-old male presents for evaluation of dyspnea. Patient has had increasing dyspnea for the past 2 weeks. Also complains of bilateral lower extremity swelling and swelling in his abdomen. Patient does report mild central chest tightness, 110, nonradiating. This is been intermittent. The patient he has a history of congestive heart failure. He was brought in by EMS in severe respiratory distress, on BiPAP. Patient was initially hypoxic at 80% . The patient's family he has not been taking his medication. He is prescribed Lasix 40 mg twice daily as well as additional medication for his heart which they do not know the name of. Patient denies fever. He has had diarrhea for several weeks and was recently diagnosed with colitis. - Related Data Previous Rx's Medication Instructions Recorded Calcitriol [Rocaltrol] 0.25 mcg PO DAILY #30 cap 06/10/16 Magnesium Oxide [Magox 400] 400 mg PO DAILY #60 tablet 07/21/16 Vitamin A 8,000 unit PO DAILY #30 capsule 08/03/16 Zinc Gluconate [Zinc] 50 mg PO DAILY@1200 #60 tablet 08/03/16 Folic Acid-Vit B Complex-Vit C 1 each PO DAILY #30 cap 08/06/16 [Nephrocaps] Furosemide [Lasix] 20 mg PO DIRECTED #8 tab 08/06/16 Lactobacillus Acidoph & Bulgar 1 each PO TID #90 packet 08/06/16 [Lactinex] Levothyroxine Sodium [Synthroid] 75 mcg PO DAILY@0630 #30 tab 08/06/16 Loperamide [Imodium] 4 mg PO TID PRN #42 cap 08/06/16 Omeprazole [PriLOSEC] 20 mg PO AC-BRKFST #0 08/06/16 Rivaroxaban [Xarelto Starter Pack] 1 each PO DIRECTED #1 package 08/06/16 predniSONE 10 mg PO DIRECTED #64 tab 08/06/16 Allergies Allergy/AdvReac Type Severity Reaction Status Date / Time iodine Allergy Rash/Hives Verified 01/16/17 23:37 Review of Systems ROS Statement: Those systems with pertinent positive or pertinent negative responses have been documented in the HPI. ROS Other: All systems not noted in ROS Statement are negative. Past Medical History Past Medical History: GERD/Reflux, Thyroid Disorder Additional Past Medical History / Comment(s): recent admission for diarrhea for >month, weight loss, abnormal electrolytes. Patient says his legs and scrotum have been progressively swelling since June. Denies history of CHF, CAD, or any other history. History of Any Multi-Drug Resistant Organisms: None Reported Past Surgical History: Cholecystectomy Additional Past Surgical History / Comment(s): rupert cataracts Past Anesthesia/Blood Transfusion Reactions: No Reported Reaction Additional Past Anesthesia/Blood Transfusion Reaction / Comment(s): never received any blood. Past Psychological History: No Psychological Hx Reported Smoking Status: Former smoker Past Alcohol Use History: Occasional Past Drug Use History: None Reported - Past Family History Father Family Medical History: CVA/TIA Mother Additional Family Medical History / Comment(s): in a mva General Exam General appearance: alert, in distress, cachectic Head exam: Present: atraumatic, normocephalic Neck exam: Present: normal inspection. Absent: tenderness Respiratory exam: Present: respiratory distress, rales, accessory muscle use Cardiovascular Exam: Present: normal rhythm, tachycardia, other (Distant heart sounds) GI/Abdominal exam: Present: soft, distended. Absent: tenderness, guarding, rebound Extremities exam: Present: pedal edema (2-3+ pitting edema) Neurological exam: Present: alert, oriented X3. Absent: motor sensory deficit Psychiatric exam: Present: normal affect, normal mood Skin exam: Present: warm. Absent: cyanosis, diaphoretic Course Vital Signs 01/16/17 01/17/17 01/17/17 23:37 00:52 01:03 Pulse Rate 108 H 89 90 Respiratory 27 H 18 20 Rate Blood Pressure 112/77 85/60 122/80 O2 Sat by Pulse 100 100 99 Oximetry EKG Findings - EKG Comments: EKG Findings:: EKG shows sinus tachycardia, low voltage QRS, there is T-wave flattening and inversion in the precordium, no ST segment elevation or depression, ventricular rate 101, AZ interval 112, QRS 52, QTC 383 Medical Decision Making - Medical Decision Making 72-year-old male presenting with worsening dyspnea and lower extremity swelling. Patient does have 2-3+ pitting edema bilateral lower extremities. Pulmonary auscultation reveals bilateral Rales. Chest x-rays obtained, shows bilateral pulmonary infiltrates. Laboratory studies reveal hemoglobin 7.7, recent baseline of 9.9. White blood cell count is normal at 4.3. INR is 1.6, and patient denies anticoagulation, states he is only taking aspirin. Albumin is 1.5. AST and LTR mildly elevated along with alkaline phosphatase. Potassium is 5.7, patient is on supplemental potassium. He is given a dose of calcium gluconate and Lasix for hyperkalemia. Patient's swelling is likely related to protein malnutrition. Hemoglobin of 7.7 is new, Hemoccult is positive. Patient is given 1 unit of red blood cells, started on Protonix. EKG is low-voltage, given the anasarca, echo will be obtained for evaluation of pericardial effusion. Diagnosis: Bilateral pneumonia, anasarca, hypoalbuminemia, hyperkalemia, GI bleed, symptomatically anemia - Lab Data Result diagrams: 01/17/17 00:18 01/17/17 00:18 Lab Results 01/17/17 01/17/17 01/17/17 Range/Units 00:18 00:18 00:18 WBC 4.3 (3.8-10.6) k/uL RBC 2.21 L (4.30-5.90) m/uL Hgb 7.7 L (13.0-17.5) gm/dL Hct 24.6 L (39.0-53.0) % MCV 111.7 H (80.0-100.0) fL MCH 34.9 (25.0-35.0) pg MCHC 31.3 (31.0-37.0) g/dL RDW 19.1 H (11.5-15.5) % Plt Count 190 (150-450) k/uL PT (9.0-12.0) sec INR (<1.2) APTT (22.0-30.0) sec Sodium (137-145) mmol/L Potassium (3.5-5.1) mmol/L Chloride (98-107) mmol/L Carbon Dioxide (22-30) mmol/L Anion Gap mmol/L BUN (9-20) mg/dL Creatinine (0.66-1.25) mg/dL Est GFR (MDRD) Af Amer (>60 ml/min/1.73 sqM) Est GFR (MDRD) Non-Af (>60 ml/min/1.73 sqM) Glucose (74-99) mg/dL Calcium (8.4-10.2) mg/dL Magnesium (1.6-2.3) mg/dL Total Bilirubin (0.2-1.3) mg/dL AST (17-59) U/L ALT (21-72) U/L Alkaline Phosphatase (38-126) U/L Ammonia <9 (<30) umol/L Total Creatine Kinase 113 (55-170) U/L Total Protein (6.3-8.2) g/dL Albumin (3.5-5.0) g/dL Stool Occult Blood (Negative) 01/17/17 01/17/17 01/17/17 Range/Units 00:18 00:18 01:00 WBC (3.8-10.6) k/uL RBC (4.30-5.90) m/uL Hgb (13.0-17.5) gm/dL Hct (39.0-53.0) % MCV (80.0-100.0) fL MCH (25.0-35.0) pg MCHC (31.0-37.0) g/dL RDW (11.5-15.5) % Plt Count (150-450) k/uL PT 15.7 H (9.0-12.0) sec INR 1.6 H (<1.2) APTT 29.5 (22.0-30.0) sec Sodium 135 L (137-145) mmol/L Potassium 5.7 H (3.5-5.1) mmol/L Chloride 112 H (98-107) mmol/L Carbon Dioxide 15 L (22-30) mmol/L Anion Gap 8 mmol/L BUN 16 (9-20) mg/dL Creatinine 0.90 (0.66-1.25) mg/dL Est GFR (MDRD) Af Amer >60 (>60 ml/min/1.73 sqM) Est GFR (MDRD) Non-Af >60 (>60 ml/min/1.73 sqM) Glucose 116 H (74-99) mg/dL Calcium 7.1 L (8.4-10.2) mg/dL Magnesium 1.6 (1.6-2.3) mg/dL Total Bilirubin 0.3 (0.2-1.3) mg/dL AST 107 H (17-59) U/L ALT 80 H (21-72) U/L Alkaline Phosphatase 182 H (38-126) U/L Ammonia (<30) umol/L Total Creatine Kinase (55-170) U/L Total Protein 5.1 L (6.3-8.2) g/dL Albumin 1.5 L (3.5-5.0) g/dL Stool Occult Blood Positive (Negative) Critical Care Time Critical Care Time: Yes Total Critical Care Time: 35 Disposition Clinical Impression: Bilateral pneumonia, Symptomatic anemia, GI bleed, Hypoalbuminemia Disposition: ADMITTED IP TO THIS HOSP Referrals: Ward Douglas MD [Primary Care Provider] - 1-2 days Decision to Admit Reason: Admit from EC Decision Date: 01/17/17 Decision Time: 01:14
[2017-01-17 00:35] LABS: Anisocytosis Slight; CH 35.2; HCT 24.6 % (39.0-53.0); HDW 3.19; HGB 7.7 gm/dL (13.0-17.5); Hypochromasia Slight; Large Platelets Flag Slight; MCH 34.9 pg (25.0-35.0); MCHC 31.3 g/dL (31.0-37.0); MCV 111.7 fL (80.0-100.0); Macrocytosis Marked; Mean Platelet Volume 11.6; RBC 2.21 m/uL (4.30-5.90); RDW 19.1 % (11.5-15.5); WBC 4.3 k/uL (3.8-10.6); WBC (Perox) 4.38
[2017-01-17 00:43] LABS: INR 1.6 (<1.2); Partial Thromboplastin Time 29.5 sec (22.0-30.0); Prothrombin Time 15.7 sec (9.0-12.0)
--- NOTE | 2017-01-17 00:45 | XR ---
EXAMINATION TYPE: XR chest 1V portable DATE OF EXAM: 01/17/2017 COMPARISON: 07/28/2016 HISTORY: Difficulty breathing TECHNIQUE: Single frontal view of the chest is obtained. FINDINGS: There is some infiltrate and atelectasis at both lung bases. There is no gross heart failu re. Heart size is normal. Thoracic aorta is atheromatous. There are chest leads. IMPRESSION: There are new bilateral basilar pulmonary infiltrates and atelectasis compared to last e xam.
[2017-01-17 00:46] LABS: ALT 80 U/L (21-72); AST 107 U/L (17-59); Alkaline Phosphatase 182 U/L (38-126); Anion Gap 8 mmol/L; Blood Urea Nitrogen 16 mg/dL (9-20); Calcium 7.1 mg/dL (8.4-10.2); Carbon Dioxide 15 mmol/L (22-30); Chloride 112 mmol/L (98-107); Glucose 116 mg/dL (74-99); Magnesium 1.6 mg/dL (1.6-2.3); Non-African American GFR(MDRD) >60 (>60 ml/min/1.73 sqM); Potassium 5.7 mmol/L (3.5-5.1); Sodium 135 mmol/L (137-145); Total Bilirubin 0.3 mg/dL (0.2-1.3); Total Protein 5.1 g/dL (6.3-8.2)
[2017-01-17] MEDS ORDERED: VANCOMYCIN IV PER PHARMACY 1 EACH MISC MISCELLANE PRN (00:46)
[2017-01-17] MEDS ORDERED: CALCIUM GLUCONATE 1,000 MG in SODIUM CHLORIDE 0.9% 100 ML IVPB ONE (00:58)
[2017-01-17] MEDS ORDERED: FUROSEMIDE 10 MG/ML 2 ML VIAL IV ONE (01:04)
[2017-01-17] MEDS ORDERED: HYDROmorphone 1 MG/ML 1 ML SYRINGE IVP PRN (01:07)
[2017-01-17] MEDS ORDERED: NALOXONE 0.4 MG/ML 1 ML VIAL IV PRN (01:07)
[2017-01-17] MEDS ORDERED: PANTOPRAZOLE 40 MG/10 ML VIAL IVP STA (01:12)
[2017-01-17 01:13] LABS: Add Differential Manual Differential
[2017-01-17 01:18] LABS: Creatine Kinase MB 3.2 ng/mL (0.0-2.4); Manual Review Performed; Myelocytes % 1 %; Nucleated Red Blood Cells 1 /100 WBC (0-0); Polychromasia Present; Target Cells Present; Total Cells Counted 200; Troponin I 0.054 ng/mL (0.000-0.034)
[2017-01-17] MEDS ORDERED: VANCOMYCIN 1,250 MG in SODIUM CHLORIDE 0.9% 250 ML IVPB ONE (02:00)
[2017-01-17 04:40] LABS: Appearance,Urine Clear (Clear); Bilirubin,Urine Negative (Negative); Glucose,Urine (UA) Negative (Negative); Ketones,Urine Negative (Negative); Leukocyte Esterase,Urine Negative (Negative); Nitrite,Urine Negative (Negative); Protein,Urine Negative (Negative); Specific Gravity,Urine 1.004 (1.001-1.035); UA Billing (MACRO vs. MICRO) CHEM; Urobilinogen,Urine <2.0 mg/dL (<2.0)
[2017-01-17 09:19] LABS: Creatine Kinase MB 10.8 ng/mL (0.0-2.4); Troponin I 1.77 ng/mL (0.000-0.034)
[2017-01-17] MEDS ORDERED: IOHEXOL 350 MG/ML 25 ML BOTTLE (ORAL USE) PO PRN (14:55)
[2017-01-17] MEDS ORDERED: LOPERAMIDE 2 MG CAP PO PRN (14:56)
[2017-01-17] MEDS ORDERED: DIPHENOX-ATROP 2.5-0.025 MG 1 EACH TAB PO PRN (14:56)
[2017-01-17] MEDS ORDERED: HYDROcodone/APAP 5-325MG 1 EACH TAB PO PRN (14:57)
[2017-01-17] MEDS ORDERED: ALPRAZolam 0.25 MG TAB PO PRN (14:57)
[2017-01-17] MEDS ORDERED: TEMAZEPAM 15 MG CAP PO PRN (14:57)
[2017-01-17] MEDS ORDERED: FUROSEMIDE 10 MG/ML 4 ML VIAL IV SCH (15:00)
[2017-01-17 15:13] LABS: Creatine Kinase MB 10.3 ng/mL (0.0-2.4); Troponin I 1.72 ng/mL (0.000-0.034)
--- NOTE | 2017-01-17 15:31 | HP ---
HISTORY AND PHYSICAL CHIEF COMPLAINT: Shortness of breath. HISTORY OF PRESENT ILLNESS: This 72-year-old gentleman with a past medical history of multiple medical problems including history of CHF, history of GERD, hypertension, history of cholecystectomy being followed by Dr. Douglas in the outpatient setting was complaining generalized anasarca. Patient complains of progressive weakness. Patient also has numbness of the left leg. Patient also had diarrhea. Patient evaluated previously had features of lymphocytic colitis also. There is no history of any fever, rigors. No headache, loss of consciousness, seizures. PAST MEDICAL HISTORY: CHF, GERD, hypothyroidism. MEDICATIONS: Prior to admission include home medications are: 1. K-Dur 20 mEq p.o. daily. 2. Prilosec 10 mg p.o. daily. 3. Imodium 4 mg p.o. t.i.d. p.r.n. 4. Synthroid 75 mcg p.o. daily. 5. Lasix 40 mg p.o. b.i.d. 6. Lomotil 1 tab p.o. t.i.d. p.r.n. 7. Pepto-Bismol 260 mg p.o. daily p.r.n. ALLERGIES: IODINE. FAMILY HISTORY: History of CVA, TIA in the family. SOCIAL HISTORY: Previous history of smoking. No history of alcohol intake. REVIEW OF SYSTEMS: ENT: Diminished hearing and vision. CARDIOVASCULAR: As mentioned earlier. RESPIRATORY: As mentioned earlier. GI: As mentioned earlier. : No dysuria. NERVOUS SYSTEM: No numbness, weakness. ALLERGY/IMMUNOLOGY: No asthma. MUSCULOSKELETAL: As mentioned earlier. HEMATOLOGY: No history of anemia. ENDOCRINE: No history of diabetes, hypothyroidism. CONSTITUTIONAL: As mentioned earlier. DERMATOLOGY: Negative. RHEUMATOLOGY: Negative. PSYCHIATRY: As mentioned earlier. PHYSICAL EXAMINATION: Alert, oriented x3. Pulse is 78, blood pressure 189/61 respirations 16, temperature 96.9, pulse ox 99% on 2 L. HEENT: Conjunctivae normal. Oral mucosa moist. NECK: No jugular venous distention. No carotid bruit. No lymph node enlargement. CARDIOVASCULAR: S1, S2. RESPIRATORY: Breath sounds diminished in the bases. A few scattered rhonchi and crackles. ABDOMEN: Soft, mild diffuse distention present. Ascites present. LEGS: Bilateral leg edema. NERVOUS SYSTEM: Higher function as mentioned. Moves all four limbs. Mild diffuse weakness. LYMPHATICS: No lymphadenopathy in the neck, axillae or groin. SKIN: No ulcer, rash or bleeding. LABS: WBC 4.2, hemoglobin 7.7, INR 1.2. Sodium 130, potassium 5.7. Troponin 1.770. ASSESSMENT: 1. Generalized anasarca possible cirrhosis of the liver. 2. Rule out congestive heart failure acute exacerbation. 3. Troponin 1.770 possibly indicating acute non ST-segment elevation myocardial infarction. 4. Hyponatremia. 5. Hyperkalemia. 6. Anemia. 7. History of gastroesophageal reflux disease. 8. History hypothyroidism. 9. History of diarrhea possible lymphocytic colitis. 10.FULL CODE. 11.Mild malnutrition. RECOMMENDATIONS AND DISCUSSION: In this 72-year-old gentleman who presented with multiple complex medical issues, will monitor the patient closely. Continue the current management. I would recommend diuretics. Limit the fluid intake. The exact etiology of ascites unknown at this time. I recommend a hepatitis panel. Also recommend also recommend intervention radiology for abdominal paracentesis diagnostic monterroso. Otherwise I would also recommend a CT scan of the abdomen and pelvis. Cardiology has been consulted. Empiric antibiotics initiated. INR is 1.2. Monitor the patient closely. Prognosis guarded. Repeat labs will be ordered. I would also recommend dietary consultation to evaluate the malnutrition. PT and OT will also will be consulted and case management also will evaluate the home situation. Possible ECF rehab is recommended. Discussed at length with the patient as well as multiple members of family who understand and agreed. Old charts reviewed and a copy dictation forwarded to Dr. Douglas, who is the primary physician. MMJORDANL / ORLANDON: [id number] /
[2017-01-17] MEDS: PANTOPRAZOLE 40 MG/10 ML VIAL IVP SCH (16:28)
[2017-01-17] MEDS: FUROSEMIDE 10 MG/ML 2 ML VIAL IV SCH ×2 (16:29→23:32)
[2017-01-17] MEDS: VANCOMYCIN 1,250 MG in SODIUM CHLORIDE 0.9% 250 ML IVPB SCH (18:54)
[2017-01-17 20:30] LABS: Creatine Kinase MB 6.6 ng/mL (0.0-2.4); Troponin I 1.31 ng/mL (0.000-0.034)
--- NOTE | 2017-01-17 21:18 | CT ---
EXAMINATION TYPE: CT ChestAbdPelvis wo con DATE OF EXAM: 01/17/2017 COMPARISON: CT abdomen and pelvis July 28, 2016. CTA chest July 28, 2016. HISTORY: Patient poor historian. Rule out malignancy. CT DLP: 658.1 mGycm. Automated Exposure Control for Dose Reduction was Utilized. TECHNIQUE: CT scan of the thorax, abdomen and pelvis is performed without oral or IV contrast. FINDINGS: Patient has very little intra-abdominal fat making evaluation suboptimal LUNGS: There are new small to moderate-sized bilateral pleural effusions and associated compressive a telectasis. Mild emphysematous change with mild biapical scarring is redemonstrated. No pneumothorax is seen bilaterally. Tracheobronchial tree is patent MEDIASTINUM: There are no greater than 1 cm hilar or mediastinal lymph nodes. No cardiomegaly or pe ricardial effusion is seen. Coronary artery calcification is redemonstrated which is noted marker fo r coronary artery disease. OTHER: No additional significant abnormality is seen. LIVER/GB: Liver remains small in size. Cholecystectomy clips are redemonstrated. PANCREAS: Not well seen on current study. SPLEEN: Normal-appearing spleen is not identified and may be surgically absent. Curvilinear density p osteriorly left upper quadrant on axial image 53 is unchanged from prior study and may reflect dystro phic calcification from prior surgery or calcified splenic remnant. ADRENALS: No significant abnormality is seen. KIDNEYS: No renal stones are identified. BOWEL: Evaluation suboptimal secondary to lack of enteric contrast and little intra-abdominal fat. Sl ightly prominent gas-filled small and large bowel loops are seen. No suspicious dilatation is noted. GENITAL ORGANS: No gross abnormality seen. LYMPH NODES: No greater than 1cm abdominal or pelvic lymph nodes are appreciated. OSSEOUS STRUCTURES: Mild multilevel spurring in the spine is present. OTHER: There is now moderate to severe diffuse abdominal and pelvic ascites increased from prior. The re is moderate to severe diffuse soft tissue anasarca. There is mild to moderate calcified plaque in distal abdominal aorta extending into pelvic branch vessels. IMPRESSION: 1. No obvious mass or adenopathy seen. Exam is suboptimal due to lack of oral and IV contrast. 2. New small to moderate-sized bilateral pleural effusions. More prominent moderate to large amount o f abdominal and pelvic ascites. Small liver redemonstrated. Correlate for cirrhosis.
[2017-01-18 06:04] LABS: Anisocytosis Slight; Basophils % (A) 0 %; CH 33.9; CHCM 32.2; Eosinophils % (A) 1 %; HCT 24.3 % (39.0-53.0); HDW 3.32; HGB 7.7 gm/dL (13.0-17.5); Hypochromasia Slight; Large Platelets Flag Slight; Luc # (Auto) 0.11; Luc % (Auto) 2; Lymphocytes # (A) 0.7 k/uL (1.0-4.8); Lymphocytes % (A) 15 %; MCH 34.1 pg (25.0-35.0); MCHC 31.9 g/dL (31.0-37.0); MCV 106.8 fL (80.0-100.0); Mean Platelet Volume 10.8; Monocytes # (A) 0.2 k/uL (0-1.0); Monocytes % (A) 5 %; Neutrophils # (A) 3.7 k/uL (1.3-7.7); Neutrophils % (A) 77 %; RBC 2.27 m/uL (4.30-5.90); RDW 18.8 % (11.5-15.5); WBC 4.8 k/uL (3.8-10.6); WBC (Perox) 4.44
[2017-01-18 06:13] LABS: Anion Gap 4 mmol/L; Blood Urea Nitrogen 16 mg/dL (9-20); Calcium 6.8 mg/dL (8.4-10.2); Carbon Dioxide 18 mmol/L (22-30); Chloride 111 mmol/L (98-107); Glucose 78 mg/dL (74-99); Magnesium 1.5 mg/dL (1.6-2.3); Non-African American GFR(MDRD) >60 (>60 ml/min/1.73 sqM); Potassium 4.2 mmol/L (3.5-5.1); Sodium 133 mmol/L (137-145)
[2017-01-18 06:17] LABS: Macrocytosis Marked
[2017-01-18] MEDS: VANCOMYCIN 1,250 MG in SODIUM CHLORIDE 0.9% 250 ML IVPB SCH (06:43)
[2017-01-18] MEDS: LEVOTHYROXINE 75 MCG TAB PO SCH (06:43)
[2017-01-18] MEDS: FUROSEMIDE 10 MG/ML 2 ML VIAL IV SCH (08:57)
[2017-01-18] MEDS: PANTOPRAZOLE 40 MG/10 ML VIAL IVP SCH (08:58)
[2017-01-18] MEDS ORDERED: OMEPRAZOLE MAGNESIUM 10 MG PO SCH (09:00)
--- NOTE | 2017-01-18 10:42 | ECHOF ---
Referral Reason:effusion MEASUREMENTS -------- HEIGHT: 175.3 cm WEIGHT: 72.6 kg BP: 95/60 IVSd: 0.9 cm (0.6 - 1.1) LVIDd: 3.9 cm (3.9 - 5.3) LVPWd: 1.2 cm (0.6 - 1.1) IVSs: 1.1 cm LVIDs: 3.1 cm LVPWs: 0.8 cm Ao Diam: 3.6 cm (2.0 - 3.7) AV Cusp: 1.9 cm (1.5 - 2.6) LA Diam: 3.7 cm (2.7 - 3.8) MV EXCURSION: 23.818 mm (> 18.000) MV EF SLOPE: 104 mm/s (70 - 150) EPSS: 0.7 cm MV E Elias: 0.33 m/s MV DecT: 334 ms MV A Elias: 0.80 m/s MV E/A Ratio: 0.41 RAP: 5.00 mmHg RVSP: 28.71 mmHg FINDINGS -------- Sinus rhythm. This was a technically adequate study. The left ventricular size is normal. Overall left ventricular systolic function is low-normal with, an EF between 50 - 55 %. The right ventricle is normal in size. The left atrial size is normal. The right atrial size is normal. There is mild aortic valve sclerosis. There is no evidence of aortic regurgitation. Mild mitral annular calcification present. Mild mitral regurgitation is present. Mild tricuspid regurgitation present. There is no evidence of pulmonary hypertension. The right ventricular systolic pressure, as measured by Doppler, is 28.71mmHg. Trace/mild (physiologic) pulmonic regurgitation. The aortic root size is normal. There is a small, generalized pericardial effusion present. Moderate Pleural Effusion. CONCLUSIONS -------- 1. The left ventricular size is normal. 2. The aortic root size is normal. 3. There is a small, generalized pericardial effusion present. 4. Moderate Pleural Effusion. 5. Overall left ventricular systolic function is low-normal with, an EF between 50 - 55 %. 6. There is mild aortic valve sclerosis. 7. Mild mitral annular calcification present. 8. Mild mitral regurgitation is present. 9. Mild tricuspid regurgitation present. 10. There is no evidence of pulmonary hypertension. 11. The right ventricular systolic pressure, as measured by Doppler, is 28.71mmHg. 12. Trace/mild (physiologic) pulmonic regurgitation. ROCK [employer]OL APPLICATOR: Mary Rene RDCS
--- NOTE | 2017-01-18 11:20 | CONS ---
CONSULTATION Mr. Dietrich is a 72-year-old gentleman who is seen for cardiac evaluation. Patient's medical records and old charts reviewed. Patient came with a complaint of feeling generalized weakness. He can hardly get out of bed. He also had a swelling in the legs and increased abdominal distention. Denied any orthopnea or PND, fever or chills or denies any history of chest discomfort. This patient has a history of a chronic swelling in the legs which was thought to be due to the hypoalbuminemia. Patient also has a history of chronic diarrhea suggestive of lymphocytic colitis. There is no definite prior history of myocardial infarction, diabetes or hypertension. . PAST MEDICAL HISTORY: Includes a history of GERD, hypothyroidism, cholecystectomy. HOME MEDICATIONS: Include Synthroid, Lasix, Lomotil, Pepto-Bismol and Prilosec. REVIEW OF THE SYSTEM: Otherwise unremarkable. PHYSICAL EXAMINATION: At present reveals a 72-year-old gentleman who does not appear to be in any acute distress. HEENT examination is negative. Conjunctivae is pale. Neck is supple. Jugular venous pressure does not appear to be any significantly elevated. Both the carotid pulses are felt. There is no bruit. Chest is symmetrical. Heart, first and second heart sounds are normal. Lungs reveal bilateral diminished air entry. Abdomen is soft. Fluid clearly is present suggestive of ascites. Extremities, there is 2+ pedal edema. Patient had a CT scan of the abdomen which showed evidence of bilateral small to moderate size pleural effusion. Large amount of abdominal and pelvic ascites. The liver was contracted, suggestive possibly cirrhosis of the liver. Patient's hemoglobin is 7.7 with elevated MCV level. Chest x-ray does not show any significant left ventricular failure. Patient's creatinine is normal. Patient had 3 sets of troponin which are 1.7, 1.72 and 1.3. IMPRESSION: 1. This patient is primarily admitted with generalized anasarca with mild ascites, bilateral leg edema and bilateral pleural effusion. Most likely, it could be secondary to underlying liver disease and cirrhosis of the liver or albuminemia. There is no evidence of any significant left ventricular failure, jugular venous pressure is not elevated. We will obtain echo and Doppler study to assess the left ventricular systolic diastolic function and we will also check the BNP level. 2. Patient has a macrocytic anemia. Patient's hemoglobin in June was 17 g and now it is 7.7, gram. If this needs to be further evaluated, Hematologic consultation would be helpful. RECOMMENDATIONS: I will recommend to diurese the patient with IV Lasix. Will add Aldactone. If significant ascites persists, may need paracentesis. Patient also may need a diagnostic paracentesis also. Thank you very much for letting me participate in the care of this nice gentleman. CARLOS / ORLANDON: [id number] /
--- NOTE | 2017-01-18 11:36 | US ---
EXAMINATION TYPE: US abdomen limited DATE OF EXAM: 01/18/2017 COMPARISON: CT CLINICAL HISTORY: ascites. Ascites check, exam done portable Ascites seen in all 4 quadrants with largest pocket in the RLQ IMPRESSION: Moderate volume abdominopelvic ascites.
[2017-01-18] MEDS: SPIRONOLACTONE 25 MG TAB PO SCH (13:40)
[2017-01-18] MEDS: FUROSEMIDE 10 MG/ML 4 ML VIAL IV SCH (13:40)
[2017-01-18] MEDS: MULTIVITAMINS, THERA 1 EACH TAB PO SCH (13:43)
[2017-01-18 15:17] VITALS: BMI 23.8
--- NOTE | 2017-01-18 15:59 | US ---
Therapeutic and diagnostic paracentesis. DATE OF EXAM: 01/18/2017 CLINICAL HISTORY: Ascites The procedure was discussed with the patient. The risks, complications, benefits, and alternatives we re discussed and any questions were answered. Informed consent was obtained. The patient was placed s upine on the ultrasound table and prepped and draped in the usual sterile fashion. All elements of maximal barrier technique were utilized. Under ultrasound guidance, access into the right lower quadrant was obtained, via the paracentesis catheter system and direct ultrasound guidanc e. Approximately 3.5 liters of straw-colored fluid was removed. The patient was stable throughout the pr ocedure and remained stable upon discharge from Department of Radiology. Sample sent department of pa thology. IMPRESSION: Successful paracentesis under ultrasound guidance.
[2017-01-18 17:23] LABS: RBC, Body Fluid 36 /uL
[2017-01-18] MEDS: ASPIRIN 81 MG PO SCH (17:49)
[2017-01-18] MEDS ORDERED: VANCOMYCIN 1,500 MG in SODIUM CHLORIDE 0.9% 250 ML IVPB SCH (18:00)
--- NOTE | 2017-01-18 18:38 | PN ---
PROGRESS NOTE ATTENDING NOTE: This patient was seen and examined by me. I discussed the case with my nurse practitioner, Alpa. Patient was admitted with lower extremity, some abdominal distention. Patient is known to have chronic liver disease, questionable cirrhosis. Patient now presents with pleural effusion, ascitic fluid in the abdomen, on IV Lasix. Breathing is a bit better. The patient did drink alcohol in the past. CURRENT MEDICATIONS: Current medications include: 1. IV Lasix. 2. Aldactone. 3. IV ceftriaxone. PHYSICAL EXAMINATION: Afebrile. Pulse 87, respiration 18, blood pressure 98/64, pulse ox 94% on room air. LUNGS: Decreased breath sounds at bases. ABDOMEN: Slight fullness in the flanks. MUSCULOSKELETAL: Diffuse wasting of muscle with loss of subcutaneous fat. INVESTIGATIONS: White count 4.8, hemoglobin 7.7, platelets 144. Potassium 4.2. Troponin 0.054, 1.7, 1.7, 1.3. ASSESSMENT: 1. Possible acute non-Q-wave myocardial infarction with rise and fall, though patient had no suggestive symptoms. 2. Hypomagnesemia. 3. Metabolic acidosis. 4. Macrocytic anemia, likely from chronic liver disease. 5. Cirrhosis; could be alcohol-induced; will need to look into this further. 6. Ascites secondary probably to portal hypertension from cirrhosis. 7. Pleural effusion, likely from hypoalbuminemia. 8. Hyperkalemia, corrected. 9. Coagulopathy, likely from chronic liver disease. 10.Severe protein-calorie malnutrition as evidenced by bony prominences, loss of subcutaneous fat and severe hypoalbuminemia. PLAN: Will get a GI opinion. Patient was due to get ascitic fluid tapped. Empirically on antibiotics for the same, though I doubt this is SBP. Will review the results and stop antibiotics if required. Patient's dose of Synthroid will be rechecked from his pharmacy. Will increase the dose of Aldactone, given all the fluid collection to be from cirrhosis rather than CHF, though BNP is elevated. MMODL / IJN: [id number] /
--- NOTE | 2017-01-18 19:06 | P.PN ---
Progress Note - Text Progress Note Date: 01/18/17 DATE OF SERVICE: 01/18/2017 PRESENTING COMPLAINT: shortness of breath HISTORY OF PRESENT ILLNESS: 72-year-old gentleman who presented with complaints of generalized anasarca and progressive weakness. Has a history of lymphocytic colitis. INTERVAL HISTORY: 01/18/2017 Patient lying in bed appears anxious, states he does not feel well. Complaining of poor appetite, only ate about 20% of his breakfast. Abdominal ultrasound pending for possible paracentesis. Patient has not been out of bed since admission, previously able to ambulate at home, now has had increasing weakness has become quite deconditioned. REVIEW OF SYSTEMS: Done for constitutional ,cardiovascular, GI, pulmonary with relevant findings as above. CURRENT MEDICATIONS Xanax, aspirin, ceftriaxone IV piggyback, Lasix 40 mg IV every 12 hours, Synthroid 75 g daily, Protonix 40 mg IV push daily, Aldactone 25 mg by mouth twice a day, temazepam 15 mg by mouth at bedtime. PHYSICAL EXAM VITAL SIGNS: temperature 96.9, pulse 87, respiratory rate 18, blood pressure 98/64, oxygen saturation 94% on room air GENERAL APPEARANCE: Lying in bed, anxious appearing EYES: Pupils equal. Conjunctiva normal. NECK: JVD not raised. Mass not palpable. RESPIRATORY: Respiratory effort normal. Lungs diminished to auscultation. CARDIOVASCULAR: First and second sounds normal. I'll edema ABDOMEN: Soft. Liver and spleen not palpable. No tenderness. No mass palpable. PSYCHIATRY: Alert and oriented x3. Mood and affect normal. MUSCULOSKELETAL: Diffuse wasting of muscles with loss of subcutaneous fat. INVESTIGATIONS: White blood cell count 4.8, hemoglobin 7.7, platelets 144, potassium 4.2, troponin 0.054,1.72, 1.31, abdominal ultrasound: Moderate volume abdominopelvic ascites paracentesis: 3.5 L of straw-colored fluid removed from the abdomen ASSESSMENT: -Possible acute non-Q wave myocardial infarction with a rise and fall, though patient has had no suggestive symptoms. -Hypomagnesemia. -metabolic acidosis. -Macrocytic anemia, likely from chronic liver disease. 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 -Ascites secondary probably due to portal hypertension from cirrhosis. -Pleural effusion, likely from hypoalbuminemia. -Hyperkalemia, corrected. -Coagulopathy likely from chronic liver disease. -Severe protein calorie malnutrition as evidenced by bony prominences loss of subcutaneous fat and severe hypoalbuminemia. PLAN: we'll consult GI, continue on empiric antibiotics. Will increase the Aldactone to help with fluid removal as a result of cirrhosis rather than CHF although his BNP is elevated. Plan of care discussed with the patient at the bedside we will continue to monitor closely RESIDENTIAL TREATMENT COUNSELOR statement: Patient was seen and examined by nurse practitioner Lidia Yuen and all elements of the case discussed with attending Dr. Abraham
[2017-01-19 04:05] LABS: T. Protein, Body Fluid Source Paracentesis Fluid; Total Protein, Body Fluid 237.4 mg/dL
[2017-01-19 06:44] LABS: Anisocytosis Slight; Basophils % (A) 1 %; CH 34.1; CHCM 31.8; Eosinophils % (A) 1 %; HCT 28.1 % (39.0-53.0); HDW 3.15; HGB 8.9 gm/dL (13.0-17.5); Hypochromasia Slight; Large Platelets Flag Slight; Luc # (Auto) 0.08; Luc % (Auto) 2; Lymphocytes # (A) 0.7 k/uL (1.0-4.8); Lymphocytes % (A) 18 %; MCH 34.2 pg (25.0-35.0); MCHC 31.6 g/dL (31.0-37.0); MCV 108.4 fL (80.0-100.0); Mean Platelet Volume 10.9; Monocytes # (A) 0.2 k/uL (0-1.0); Monocytes % (A) 5 %; Neutrophils # (A) 2.8 k/uL (1.3-7.7); Neutrophils % (A) 74 %; RDW 18.2 % (11.5-15.5); WBC 3.7 k/uL (3.8-10.6); WBC (Perox) 3.54
[2017-01-19 06:50] LABS: Macrocytosis Marked
[2017-01-19] MEDS: FUROSEMIDE 10 MG/ML 4 ML VIAL IV SCH ×3 (06:53→21:13)
[2017-01-19] MEDS: LEVOTHYROXINE 75 MCG TAB PO SCH (06:55)
[2017-01-19 07:07] LABS: Anion Gap 5 mmol/L; Blood Urea Nitrogen 15 mg/dL (9-20); Calcium 6.6 mg/dL (8.4-10.2); Carbon Dioxide 19 mmol/L (22-30); Chloride 110 mmol/L (98-107); Glucose 68 mg/dL (74-99); Non-African American GFR(MDRD) >60 (>60 ml/min/1.73 sqM); Potassium 4.3 mmol/L (3.5-5.1); Sodium 134 mmol/L (137-145)
[2017-01-19] MEDS: SPIRONOLACTONE 25 MG TAB PO SCH ×3 (08:13→21:15)
[2017-01-19] MEDS: ASPIRIN 81 MG PO SCH (08:13)
[2017-01-19] MEDS: PANTOPRAZOLE 40 MG/10 ML VIAL IVP SCH (08:13)
--- NOTE | 2017-01-19 12:06 | P.CONS ---
History of Present Illness - Reason for Consult Consult date: 01/19/17 possible cirrhosis Requesting physician: Wilson Abraham - History of Present Illness 72-year-old gentleman admitted with non-Q-wave IA new-onset ascites and anasarca with a history of remote EtOH abuse more than 45 years ago, GERD, cholecystectomy, and hypothyroidism. Consultation requested for possible cirrhosis. He was evaluated by the GI service in July 2016. At that time CT chest pelvis with contrast reported somewhat small liver in size with surrounding perihepatic ascites cirrhosis versus fatty infiltration. He underwent diagnostic therapeutic paracentesis yesterday for the first time with 3.5 L removal. Cytology and fluid albumin pending. EGD colonoscopy July 2016 for evaluation of diarrhea reported no evidence of varices. Set full serologic workup of chronic liver disease back in July 2016. MILAD screen negative. SMA 20. Hepatitis screen negative. Hemoglobin 7.7-8.9. MCV 108. Platelet 152. INR 1.6. Serum albumin 1.3-1.5. AFP less than 1.3. Alpha -1- anti-trypsin 114. Protein electrophoresis favoring liver dysfunction. Ceruloplasmin 8.4. BUN 15. Creatinine 0.7. Troponin 0.05-1.7. Ultrasound abdomen moderate volume abdominopelvic ascites. Home medications include Lasix 40 mg BID. Review of Systems Constitutional: Denies fever, chills, sweats, weight gain, or loss. HEENT: Negative for migraines, blurred vision or loss, earaches, drainage, tinnitus, oral mucosal lesions, dysphagia, or odynophagia. Cardiac: Negative for chest pain, arrhythmias, or palpitation. Respiratory: Negative for shortness of breath, hemoptysis, cough, or sputum production. Gastrointestinal: See HPI for pertinent findings. Genitourinary: Negative for hematuria, urgency, frequency, polyuria, dysuria, or penile discharge. Musculoskeletal: Negative for muscle aches, swelling, arthritis, and arthralgias. Neurologic: Negative for stroke or TIA. Endocrine: History of thyroid problems. Skin: Negative for rash or itching. Psychiatric: Negative history for depression and anxiety All systems: negative (See HPI) Past Medical History Past Medical History: Heart Failure, GERD/Reflux, Thyroid Disorder Additional Past Medical History / Comment(s): recent admission for diarrhea for >month, weight loss, abnormal electrolytes. Patient says his legs and scrotum have been progressively swelling since June. History of Any Multi-Drug Resistant Organisms: None Reported Past Surgical History: Cholecystectomy Additional Past Surgical History / Comment(s): rupert cataracts, collitis Past Anesthesia/Blood Transfusion Reactions: No Reported Reaction Additional Past Anesthesia/Blood Transfusion Reaction / Comm: never received any blood. Past Psychological History: No Psychological Hx Reported Additional Psychological History / Comment(s): pt is independant, says he lives alone but his step son and daughter in law help him out. Smoking Status: Former smoker Past Alcohol Use History: Occasional Additional Past Alcohol Use History / Comment(s): Pt states he used to drink more, but drinks very rarely now. Past Drug Use History: None Reported - Past Family History Father Family Medical History: CVA/TIA Mother Additional Family Medical History / Comment(s): in a mva Medications and Allergies Home Medications Medication Instructions Recorded Confirmed Type Loperamide [Imodium] 4 mg PO TID PRN #42 cap 08/06/16 01/17/17 Rx Bismuth Subsalicylate 262 mg PO DAILY PRN 01/17/17 01/17/17 History [Pepto-Bismol] Diphenox-Atrop 2.5-0.025 mg 1 tab PO TID PRN 01/17/17 01/17/17 History [Lomotil] Furosemide [Lasix] 40 mg PO BID 01/17/17 01/17/17 History Levothyroxine Sodium [Synthroid] 75 mcg PO DAILY 01/17/17 01/17/17 History Omeprazole Magnesium [Prilosec OTC] 10 mg PO DAILY 01/17/17 01/17/17 History Potassium Chloride ER [K-Dur 20] 20 meq PO DAILY 01/17/17 01/17/17 History Allergies Allergy/AdvReac Type Severity Reaction Status Date / Time iodine Allergy Rash/Hives Verified 01/17/17 08:56 Physical Exam Vitals: Vital Signs Temp Pulse Pulse Resp BP BP Pulse Ox 01/19/17 08:00 86 18 01/19/17 06:51 97.1 F L 86 18 102/69 95 01/19/17 04:00 86 16 01/19/17 00:00 96.8 F L 77 77 16 88/54 97 01/18/17 20:00 96.9 F L 83 83 16 104/64 97 01/18/17 16:00 82 01/18/17 15:53 78 14 102/68 98 01/18/17 15:42 80 14 96/64 98 01/18/17 15:23 73 14 105/75 98 01/18/17 15:07 54 L 14 97/64 96 01/18/17 12:00 82 18 103/63 100 Intake and Output 01/18/17 01/19/17 01/19/17 22:59 06:59 14:59 Intake Total 120 200 Output Total 525 225 400 Balance -405 -25 -400 Intake: Oral 120 200 Output: Urine 525 225 400 Stool 0 0 0 Other: Voiding Method Urinal Urinal Urinal Diaper Diaper Diaper # Voids 1 1 # Bowel Movements 0 Weight 69 kg General appearance: The patient is alert, oriented, in no acute distress. thin appearance. HET: Head is normocephalic and atraumatic. Pupils are equal and reactive. Oropharynx is clear without lesions. Neck: Supple without lymphadenopathy. Trachea midline. Heart: S1 S2. Regular rate and rhythm. Lungs: No crackles or wheezes are heard. Abdomen: Soft, nontender, nondistended with bowel sounds. No peritoneal signs. No palpable organomegaly or masses. Extremities: +3 scrotal edema. Normal skin color and turgor. No cyanosis, rash , ulceration, clubbing, or edema. Radial and pedal pulses are 2/4 bilaterally. Neurological: No focal deficits. Strength and sensation are grossly intact. Results CBC & Chem 7: 01/19/17 06:17 01/19/17 06:17 Labs: Abnormal Lab Results - Last 24 Hours (Table) 01/19/17 01/19/17 Range/Units 06:17 06:17 WBC 3.7 L (3.8-10.6) k/uL RBC 2.60 L (4.30-5.90) m/uL Hgb 8.9 L (13.0-17.5) gm/dL Hct 28.1 L (39.0-53.0) % MCV 108.4 H (80.0-100.0) fL RDW 18.2 H (11.5-15.5) % Lymphocytes # 0.7 L (1.0-4.8) k/uL Sodium 134 L (137-145) mmol/L Chloride 110 H (98-107) mmol/L Carbon Dioxide 19 L (22-30) mmol/L Glucose 68 L (74-99) mg/dL Calcium 6.6 L (8.4-10.2) mg/dL Microbiology - Last 24 Hours (Table) 01/18/17 15:16 Gram Stain - Preliminary Paracentesis Fluid Body Fluid Culture - Preliminary 01/17/17 00:18 Blood Culture - Preliminary Blood No Growth after 48 hours 01/18/17 15:16 Anaerobic Culture - Preliminary Paracentesis Fluid US - abdomen: report reviewed (Reviewed Dr. Barragan) Assessment and Plan (1) Cirrhosis of liver Narrative/Plan: Radiographic imaging reported small liver contour. Possible alcohol related. Suspected portal hypertension. Full serologic workup for chronic liver disease completed. Status: Acute (2) Ascites Status: Acute (3) H/O ETOH abuse Status: Resolved Plan: 1. Repeat AFP. RTO 1-2 weeks. Await paracentesis results. Possible outpatient liver bx. Add aldactone 50 mg daily to home medications on discharge. Discharge per medicine. Thank you for this kind referral and the opportunity to participate in the care of your patient. This consultation was discussed with Dr. Barragan. The impression and plan of care have been directed as dictated.
[2017-01-19] MEDS: MULTIVITAMINS, THERA 1 EACH TAB PO SCH (14:53)
--- NOTE | 2017-01-19 15:09 | P.PN ---
Progress Note - Text Progress Note Date: 01/19/17 DATE OF SERVICE: 01/19/2017 PRESENTING COMPLAINT: shortness of breath HISTORY OF PRESENT ILLNESS: 72-year-old gentleman who presented with complaints of generalized anasarca and progressive weakness. Has a history of lymphocytic colitis. Concerns for cirrhosis, abdominal ascites, ultrasound-guided paracentesis performed 2016 with 3.5 L of fluid removed. GI consulted INTERVAL HISTORY: 01/19/2017: Patient lying in bed appears anxious states he feels better today than yesterday. Appetite slowly improving ate about 30% of his breakfast today. Status post paracentesis with 3.5 L of fluid removed yesterday. GI to see the patient was seen by GI in July 2016 serologic workup for chronic liver disease completed at that time. They will redraw additional labs, await results of the paracentesis fluid, consider outpatient liver biopsy. At Aldactone 50 mg daily to home medications. Patient agreeable to work with physical therapy and did so today. Requires use of a walker for now. Last BM today. 01/18/2017 Patient lying in bed appears anxious, states he does not feel well. Complaining of poor appetite, only ate about 20% of his breakfast. Abdominal ultrasound pending for possible paracentesis. Patient has not been out of bed since admission, previously able to ambulate at home, now has had increasing weakness has become quite deconditioned. REVIEW OF SYSTEMS: Done for constitutional ,cardiovascular, GI, pulmonary with relevant findings as above. CURRENT MEDICATIONS Xanax, aspirin, ceftriaxone IV piggyback, Lasix 40 mg IV every 12 hours, Synthroid 75 g daily, Protonix 40 mg IV push daily, Aldactone 25 mg by mouth twice a day, temazepam 15 mg by mouth at bedtime. PHYSICAL EXAM VITAL SIGNS: Temperature 98.4, pulse 80, respiratory rate 20, blood pressure 97/70, oxygen saturation 98% on room air. GENERAL APPEARANCE: Lying in bed, anxious appearing EYES: Pupils equal. Conjunctiva normal. NECK: JVD not raised. Mass not palpable. RESPIRATORY: Respiratory effort normal. Lungs diminished to auscultation. CARDIOVASCULAR: First and second sounds normal. I'll edema ABDOMEN: Soft. Liver and spleen not palpable. No guarding no rigidity No tenderness. No mass palpable. PSYCHIATRY: Alert and oriented x3. Mood and affect normal. MUSCULOSKELETAL: Diffuse wasting of muscles with loss of subcutaneous fat. INVESTIGATIONS: White blood cell count 3.7, hemoglobin 8.9, sodium 134 Peritoneal fluid pathology pending ASSESSMENT: -Acute congestive heart failure secondary to systolic dysfunction in a patient with an EF between 50 and 55%. -acute non-Q wave myocardial infarction with a rise and fall, though patient has had no suggestive symptoms, negative for NV per cardiology -Hypomagnesemia, resolved -metabolic acidosis. -Macrocytic anemia, likely from chronic liver disease. 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 -Ascites secondary probably due to portal hypertension from cirrhosis. -Pleural effusion, likely from hypoalbuminemia. -Hyperkalemia, corrected. -Coagulopathy likely from chronic liver disease. -Severe protein calorie malnutrition as evidenced by bony prominences loss of subcutaneous fat and severe hypoalbuminemia. PLAN: Continue on empiric antibiotics repeat AFP, RTO 1-2 weeks await paracentesis results consider outpatient liver biopsy. Aldactone increased to 50 mg daily and will continue, continue to work with physical therapy for gait training and strengthening. Plan of care discussed with the patient at the bedside we will continue to monitor closely SPINNING SUPERVISOR statement: Patient was seen and examined by nurse practitioner Lidia Yuen and all elements of the case discussed with attending Dr. Abraham
--- NOTE | 2017-01-19 15:12 | PN ---
PROGRESS NOTE This patient was admitted with anasarca with ascites and bilateral leg edema as well as pleural effusion. Patient's BMP is mildly elevated suggestive of some underlying heart failure. Echocardiogram reveals overall normal left ventricular systolic function. Patient had a mildly elevated troponin without any signs and symptoms suggestive of acute coronary syndrome. This could be secondary to some underlying heart failure and low hemoglobin. Patient's hemoglobin is 8.9. I am not sure whether any workup was done for anemia in the past. Patient had about 3 L of the fluid removed by paracentesis. We will continue the current medications and recheck the chest x-ray tomorrow. MMODL / IJN: [id number] /
--- NOTE | 2017-01-19 21:18 | PN ---
PROGRESS NOTE DATE OF SERVICE: 01/19/2017. ATTENDING NOTE: This patient was seen examined by me. I discussed with my nurse practitioner, Ms. Yuen. Patient admitted with anasarca, ascites, status post paracentesis, 3.5 L removed. Patient feels a bit better. EXAM: LUNGS: Decreased breath sounds. Slightly decreased edema. GI is following the case. Hemoglobin is 8.9. ASSESSMENT: 1. Macrocytic anemia. 2. Cirrhosis. 3. Ascites. PLAN: Will send off the patient's B12, folic acid, TSH, though the patient's macrocytosis appears to be from cirrhosis. Discussed with Dr. Cantu, not acute NE. I feel as there may be an element of CHF from probably systolic and diastolic dysfunction, EF 50%. Aldactone will be increased to 50 mg twice a day and also put the patient on fluid restriction. CARLOS / ORLANDON: [id number] /
[2017-01-20 01:32] VITALS: PULSE 91
[2017-01-20 06:26] LABS: Anisocytosis Slight; Basophils % (A) 1 %; CH 34.4; CHCM 32.1; Eosinophils % (A) 1 %; HCT 30.3 % (39.0-53.0); HDW 3.13; HGB 9.5 gm/dL (13.0-17.5); Luc % (Auto) 3; Lymphocytes # (A) 0.8 k/uL (1.0-4.8); Lymphocytes % (A) 22 %; MCH 33.9 pg (25.0-35.0); MCHC 31.3 g/dL (31.0-37.0); MCV 108.3 fL (80.0-100.0); Macrocytosis Marked; Mean Platelet Volume 11.2; Monocytes # (A) 0.2 k/uL (0-1.0); Monocytes % (A) 7 %; Neutrophils # (A) 2.3 k/uL (1.3-7.7); Neutrophils % (A) 67 %; RDW 18.2 % (11.5-15.5); WBC 3.4 k/uL (3.8-10.6); WBC (Perox) 3.53
[2017-01-20 06:32] LABS: Anion Gap 3 mmol/L; Blood Urea Nitrogen 15 mg/dL (9-20); Carbon Dioxide 23 mmol/L (22-30); Chloride 105 mmol/L (98-107); Glucose 84 mg/dL (74-99); Non-African American GFR(MDRD) >60 (>60 ml/min/1.73 sqM); Potassium 4.7 mmol/L (3.5-5.1); Sodium 131 mmol/L (137-145)
[2017-01-20 06:34] VITALS: BP 89/66; RESP 18; TEMP 97.4
[2017-01-20] MEDS: LEVOTHYROXINE 75 MCG TAB PO SCH (06:35)
[2017-01-20 07:10] LABS: Calcium 5.9 mg/dL (8.4-10.2)
--- NOTE | 2017-01-20 08:49 | XR ---
EXAMINATION TYPE: XR chest 1V portable DATE OF EXAM: 01/20/2017 COMPARISON: Prior chest x-ray 01/17/2017 HISTORY: Congestive heart failure TECHNIQUE: Single frontal view of the chest is obtained. FINDINGS: Patient is rotated. Cardiac mediastinal silhouette, pulmonary vascularity and saray are sta ble. Bibasilar increased density persists, the left hemidiaphragm shows interval obscuration. No evid ent pneumothorax. IMPRESSION: Basilar atelectasis versus pneumonia or edema, there may be associated effusion left gre ater than right. Rotated exam. Follow-up recommended.
[2017-01-20] MEDS ORDERED: CALCIUM GLUCONATE 1,000 MG in SODIUM CHLORIDE 0.9% 100 ML IVPB ONE (09:00)
[2017-01-20] MEDS: ASPIRIN 81 MG PO SCH (09:22)
[2017-01-20] MEDS: SPIRONOLACTONE 25 MG TAB PO SCH (09:22)
[2017-01-20] MEDS: PANTOPRAZOLE 40 MG/10 ML VIAL IVP SCH (09:22)
[2017-01-20] MEDS: FUROSEMIDE 10 MG/ML 4 ML VIAL IV SCH (09:22)
[2017-01-20] MEDS: MULTIVITAMINS, THERA 1 EACH TAB PO SCH (11:17)
--- NOTE | 2017-01-20 15:10 | P.DS ---
Providers Date of admission: 01/17/17 01:15 Expected date of discharge: 01/20/17 Attending physician: Wilson Abraham Consults: 01/17/17 11:31 Consult Physician Routine Consulting Provider: [facility] Consult Reason/Comments: Elevated Trop/CKMB Do you want consulting provider notified?: Yes Primary care physician: Ward Douglas [facility] Course: FINAL DIAGNOSES: -Acute congestive heart failure secondary to systolic dysfunction in a patient with an EF between 50 and 55%. -acute non-Q wave myocardial infarction with a rise and fall, though patient has had no suggestive symptoms, negative for NE per cardiology -Hypomagnesemia -metabolic acidosis. -Macrocytic anemia, likely from chronic liver disease. 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 -Ascites secondary probably due to portal hypertension from cirrhosis. -Pleural effusion, likely from hypoalbuminemia. -Hyperkalemia -Coagulopathy likely from chronic liver disease. -Severe protein calorie malnutrition as evidenced by bony prominences loss of subcutaneous fat and severe hypoalbuminemia. HOSPTIAL COURSE: 72-year-old patient was admitted with generalized anasarca and progressive weakness. GI and cardiology consulted. Abdominal ultrasound revealed moderate volume abdominopelvic ascites, had a paracentesis under ultrasound guidance with removal of 3.5 L of fluid. GI performed serologic workup for chronic liver disease, repeat AFP awaiting paracentesis results. Recommend outpatient liver biopsy. No further demonstration of ascites to the abdominal area. Cardiology consulted with concerns for congestive heart failure and acute coronary syndrome, there was no evidence of significant left ventricular failure jugular venous pressure not elevated, echocardiogram with Doppler completed. BNP suggestive of some underlying heart failure. Aldactone added. Electrolyte imbalances received supplementation and gentle hydration electrolytes normalized. Breathing improved, tolerating his appetite, evaluated by physical therapy for muscle weakness, patient will benefit from placement at rehab center for gait training and muscle strengthening. PHYSICAL EXAM: CARDIOVASCULAR: First and second sounds noted, no edema. RESPIRATORY: Respiratory effort normal, lung sounds diminished bilaterally GI: Abdomen flat, soft nontender, liver and spleen not palpable no guarding or rigidity. MUSKULOSKELETAL: Generalized muscle weakness, requires use a walker. PSYCHIATRY: Alert and oriented 3, mood and affect anxious appearing Patient was seen and examined by nurse practitioner Lidia Yuen in all elements of the case discussed with attending Dr. Abraham DISPOSITION: Discharge to [facility]. Patient Condition at Discharge: Stable Plan - Discharge Summary New Discharge Prescriptions: New Aspirin 81 mg PO DAILY chew Multivitamins, Thera [Multivitamin (formulary)] 1 each PO DAILY@1200 tab Spironolactone [Aldactone] 50 mg PO BID #60 tab Continue Loperamide [Imodium] 4 mg PO TID PRN #42 cap PRN Reason: Diarrhea Levothyroxine Sodium [Synthroid] 75 mcg PO DAILY Potassium Chloride ER [K-Dur 20] 20 meq PO DAILY Omeprazole Magnesium [Prilosec OTC] 10 mg PO DAILY Furosemide [Lasix] 40 mg PO BID Diphenox-Atrop 2.5-0.025 mg [Lomotil] 1 tab PO TID PRN PRN Reason: Diarrhea Bismuth Subsalicylate [Pepto-Bismol] 262 mg PO DAILY PRN PRN Reason: Indigestion Discharge Medication List Loperamide [Imodium] 4 mg PO TID PRN #42 cap 08/06/16 [Rx] Bismuth Subsalicylate [Pepto-Bismol] 262 mg PO DAILY PRN 01/17/17 [History] Diphenox-Atrop 2.5-0.025 mg [Lomotil] 1 tab PO TID PRN 01/17/17 [History] Furosemide [Lasix] 40 mg PO BID 01/17/17 [History] Levothyroxine Sodium [Synthroid] 75 mcg PO DAILY 01/17/17 [History] Omeprazole Magnesium [Prilosec OTC] 10 mg PO DAILY 01/17/17 [History] Potassium Chloride ER [K-Dur 20] 20 meq PO DAILY 01/17/17 [History] Aspirin 81 mg PO DAILY chew 01/20/17 [Rx] Multivitamins, Thera [Multivitamin (formulary)] 1 each PO DAILY@1200 tab [Rx] Spironolactone [Aldactone] 50 mg PO BID #60 tab 01/20/17 [Rx] Follow up Appointment(s)/Referral(s): Emmanuel Barragan MD [STAFF PHYSICIAN] - 1 Week Ward Douglas MD [Primary Care Provider] - 01/21/17 Bowen Cantu MD [STAFF PHYSICIAN] - 1 Week Ambulatory/Diagnostic Orders: Comprehensive Metabolic Panel [LAB.AMB] Location: Determined By Patient Patient Instructions/Handouts: Abdominal Paracentesis (DC), Pneumonia (DC) Activity/Diet/Wound Care/Special Instructions: Free 30 day prescription for Brillinta filled in [facility] pharmacy Discharge Disposition: TRANSFER TO SNF/ECF
--- NOTE | 2017-01-20 16:29 | P.PN ---
Subjective Progress Note Date: 01/20/17 Principal diagnosis: Weakness This is a 72-year-old gentleman admitted primarily to the hospital with symptoms of weakness and evidence of anasarca with bilateral leg edema. Patient underwent a paracentesis, he's also been diuresing well on IV Lasix. Echocardiogram with Doppler study revealed normal left ventricular systolic function. Patient also was noted to have abnormal troponin without any evidence to suggest acute coronary syndrome, this was likely secondary to a low hemoglobin and underlying congestive heart failure. Hemoglobin today 9.5, creatinine 0.7. TSH 4.9. Continues to be on IV Lasix. We will continue the IV Lasix for 24 hours, check lytes BUN and creatinine in the morning. Objective - Vital Signs Vital signs: Vital Signs Temp 97.4 F L 01/20/17 06:33 Pulse 91 01/20/17 11:09 Resp 18 01/20/17 11:09 BP 89/66 01/20/17 06:33 Pulse Ox 98 01/20/17 06:33 Intake & Output 01/19/17 01/20/17 01/20/17 18:59 06:59 18:59 Intake Total 510 Output Total 400 4 325 Balance -400 -4 185 Weight 64 kg Intake: Intake, IV Titration 150 Amount Calcium Gluconate 1,000 100 mg In Sodium Chloride 0.9 % 100 ml @ 100 mls/hr IVPB ONCE ONE Rx#: [id number] cefTRIAXone 1,000 mg In 50 Sodium Chloride 0.9% 50 ml @ 100 mls/hr IVPB Q24H [facility] Rx#:[id number] Oral 360 Output: Urine 400 4 325 Stool 0 0 0 Other: Voiding Method Urinal Urinal Urinal Diaper Diaper Diaper # Voids 0 300 - Exam PHYSICAL EXAMINATION: HEENT: Head is atraumatic, normocephalic. Pupils equal, round. Neck is supple. There is no elevated jugular venous pressure. HEART EXAMINATION: R S1 and S2 irregularly irregular CHEST EXAMINATION: And circumflex clear with diminished air entry to bilateral bases. ABDOMEN: Soft, nontender. Bowel sounds are heard. No organomegaly noted]. EXTREMITIES:[ 2+ peripheral pulses with no evidence of peripheral edema and no calf tenderness noted]. NEUROLOGIC [patient is awake, alert and oriented -3.] . - Labs CBC & Chem 7: 01/20/17 05:27 01/20/17 05:27 Labs: Abnormal Lab Results - Last 24 Hours (Table) 01/20/17 01/20/17 Range/Units 05:27 05:27 WBC 3.4 L (3.8-10.6) k/uL RBC 2.80 L (4.30-5.90) m/uL Hgb 9.5 L (13.0-17.5) gm/dL Hct 30.3 L (39.0-53.0) % MCV 108.3 H (80.0-100.0) fL RDW 18.2 H (11.5-15.5) % Lymphocytes # 0.8 L (1.0-4.8) k/uL Sodium 131 L (137-145) mmol/L Calcium 5.9 L* (8.4-10.2) mg/dL TSH 4.940 H (0.465-4.680) mIU/L Microbiology - Last 24 Hours (Table) 01/17/17 00:18 Blood Culture - Preliminary Blood No Growth after 72 hours 01/18/17 15:16 Gram Stain - Preliminary Paracentesis Fluid Body Fluid Culture - Preliminary Assessment and Plan (1) Chronic a-fib Current Visit: Yes Status: Acute Code(s): I48.2 - CHRONIC ATRIAL FIBRILLATION SNOMED Code(s): 651224578 (2) Atypical chest pain Current Visit: Yes Status: Acute Code(s): R07.89 - OTHER CHEST PAIN SNOMED Code(s): 978603162 (3) Ascites Current Visit: Yes Status: Acute Code(s): R18.8 - OTHER ASCITES SNOMED Code(s): 658719885 (4) Hypoalbuminemia Current Visit: Yes Status: Acute Code(s): E88.09 - OTH DISORDERS OF PLASMA- PROTEIN METABOLISM, NEC SNOMED Code(s): 992452766 (5) H/O ETOH abuse Current Visit: Yes Status: Resolved Code(s): Z87.898 - PERSONAL HISTORY OF OTHER SPECIFIED CONDITIONS SNOMED Code(s): 671780940 (6) Hypotension Current Visit: No Status: Acute Code(s): I95.9 - HYPOTENSION, UNSPECIFIED SNOMED Code(s): 73934150 (7) Hypothyroidism Current Visit: No Status: Chronic Code(s): E03.9 - HYPOTHYROIDISM, UNSPECIFIED SNOMED Code(s): 20890797 Plan: Fromcardiology's perspective, dobutamine echocardiographic study was negative for any reversible ischemia. We will continue current dose of IV Lasix until tomorrow. Check lytes BUN and creatinine in the morning. DNP note has been reviewed, I agree with a documented findings and plan of care. Patient was seen and examined.
--- NOTE | 2017-01-20 20:01 | DS ---
DISCHARGE SUMMARY DATE OF SERVICE: January 20, 2017. ATTENDING NOTE: This patient seen and examined by me. I discussed with nurse practitioner, Ms. Yuen. The patient is feeling better. A little tired. On exam lungs decreased breath sounds. Patient was seen by Gastroenterology, status post paracentesis. FINAL DIAGNOSES: 1. Acute congestive heart failure from systolic and diastolic dysfunction. Ejection fraction 50 to 55%. 2. The patient did not have an acute myocardial infarction after discussion per Cardiology. 3. Overall prognosis is guarded. The patient will be going to the [facility] and follow up with Cardiology and Dr. Barragan. Care was discussed with the patient. MMODL / IJN: [id number] /
== END 2017-01-20 17:41 | DRG 432 ==
LOC: EC 23:36 → 6SEL 01-17 01:15
PROVIDERS: ADMIT Hospitalist; ATTEND Hospitalist
PROC: 0W9G3ZX Drainage of Peritoneal Cavity, Percutaneous Approach, Diagnostic (ICD-10-PCS; principal; 2017-01-18)
DX: K70.31 Alcoholic cirrhosis of liver with ascites (principal); I50.41 Acute combined systolic (congestive) and diastolic (congestive) heart failure; E43 Unspecified severe protein-calorie malnutrition; E87.2 Acidosis; J90 Pleural effusion, not elsewhere classified; D68.9 Coagulation defect, unspecified; I95.9 Hypotension, unspecified; K76.6 Portal hypertension; E87.1 Hypo-osmolality and hyponatremia; I11.0 Hypertensive heart disease with heart failure; E83.42 Hypomagnesemia; E87.5 Hyperkalemia; K21.9 Gastro-esophageal reflux disease without esophagitis; E03.9 Hypothyroidism, unspecified; D50.9 Iron deficiency anemia, unspecified; E88.09 Other disorders of plasma-protein metabolism, not elsewhere classified; R53.1 Weakness; D53.9 Nutritional anemia, unspecified; I48.2 Chronic atrial fibrillation; Z87.19 Personal history of other diseases of the digestive system; Z87.891 Personal history of nicotine dependence; Z82.3 Family history of stroke; Z79.899 Other long term (current) drug therapy; Z90.49 Acquired absence of other specified parts of digestive tract; Z98.41 Cataract extraction status, right eye; Z98.42 Cataract extraction status, left eye; Z91.048 Other nonmedicinal substance allergy status
CPT/HCPCS: 36415; 49083; 71010; 71250; 74176; 76705; 80048; 80053; 80074; 81003; 82042; 82105; 82140; 82272; 82550; 82553; 82746; 83735; 83880; 84157; 84439; 84443; 84484; 85025; 85610; 85730; 86850; 86900; 86901; 86920; 87040; 87070; 87075; 87205; 88108; 88305; 88341; 88342; 89050; 93005; 93306; 94660; 96365; 96368; 99291